=== PATIENT | female | born 2000 | race Caucasian/White ===

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

== ENCOUNTER → 2022-02-05 14:49 | Outpatient (BNVA) | payer MEDICAID, SELFPAY | PROVIDERS: PCP Nurse Practitioner; Visit Provider Nurse Practitioner | DX: M25.532 Pain in left wrist (principal) | CPT/HCPCS: 73110 ==

== ENCOUNTER 2022-02-12 17:15 | Emergency (ER) | payer MEDICAID, SELFPAY ==
[2022-02-12 17:16] VITALS: BP 109/72; PULSE 77; RESP 18; TEMP 36.5; O2SAT 98; BMI 36.2
--- NOTE | 2022-02-12 17:31 | XRR_ITS ---
PROCEDURE INFORMATION: Exam: XR Right Hand Exam date and time: 02/12/2022 5:49 PM Age: 22 years old Clinical indication: Injury or trauma; Other: Punched wall; Blunt trauma (contusions or hematomas); Hand; Right TECHNIQUE: Imaging protocol: Radiologic exam of the Right hand. Views: 3 or more views. COMPARISON: No relevant prior studies available. FINDINGS: Bones/joints: 5.2 x 1.2 cm incompletely visualize sclerosis involving the ulnar aspect of the distal radial diaphyseal metaphyseal junction with differential diagnosis including fibrous dysplasia versus ossifying non ossified fibroma. Soft tissues: See Bones/joints finding. XR/XR hand RT min 3V* [id number] IMPRESSION: No acute posttraumatic findings.
--- NOTE | 2022-02-12 17:33 | ED_ITS ---
HPI - Extremity Problem General: Chief complaint: Extremity Injury, Upper Stated complaint: right arm pain Time Seen by Provider: 02/12/22 17:31 History of Present Illness: 22-year-old female comes in today with injury to the right hand. Patient reports that she become upset and hit the table. Patient reports pain and discomfort along the fifth metacarpal little finger of the right hand. No obvious deformity is noted. Patient appears nontoxic. Patient appears in mild pain. Associated symptoms: Deny fever(s) Review of Systems Const: Denies: fever(s) Musc: Reports: extremity pain PFSH ED PFSH: Medical History Asthma BMI 34.0-34.9,adult Recurrent oral ulcers Scoliosis Surgical History No significant past surgical history Family History Other CAD (coronary artery disease) Cancer Chronic kidney disease (CKD) Diabetes Hypertension Denies family history of Anesthesia complication Stroke Social History Smoking and tobacco status: current every day smoker cigarettes Packs smoked per day: 0.5 Years cigarettes smoked: 3 Second hand smoke exposure: No Smoking risk assessment/counseling performed?: Yes Tobacco counseling given: counseling >3 minutes Alcohol intake: unknown Desire information about alcohol rehabilitation?: No Counseling given: No Desire information about substance/drug rehabilitation?: No Counseling given: No Adopted: No Caregiver/support person: No Lives independently: Yes Household members: significant other Housing: Manufactured/Mobile home Marital status: Life Partner Number of children: 0 service: No Current occupational status: employed Current occupation: [employer] Current occupational exposures/hazards: No Pets and animals: Yes History of recent travel: No Female Reproductive History: Date of last menstrual period: 01/28/22 Physical Exam Const: COMMON NORMALS: alert HENMT: COMMON NORMALS: normocephalic HEAD & SCALP: normocephalic Neck/C-Spine: COMMON NORMALS: full ROM Resp: COMMON NORMALS: normal respiratory effort Cardio: COMMON NORMALS: regular rate RATE: regular rate Extremity: RIGHT UPPER EXTREMITY: Yes hand & digits (Mild swelling to the dorsal hand with ecchymosis at the fourth knuckle) Right hand and digits: Yes inspection, Yes palpation and Yes ROM exam Neuro: SENSORIUM/ORIENTATION: Yes alert Skin: COMMON NORMALS: no rashes or lesions noted GENERAL SKIN EXAM: no rashes or lesions noted Course Vital Signs: Vital signs: Vital Signs Temperature 97.7 F 02/12/22 17:16 Pulse Rate 77 02/12/22 17:16 Respiratory Rate 18 02/12/22 17:16 Blood Pressure 109/72 02/12/22 17:16 Pulse Oximetry 98 02/12/22 17:16 Oxygen Delivery Me thod 02/12/22 17:16 MDM - Extremity (Nontraumatic) Medical Decision Making 22-year-old female comes in for injury to the right hand. On exam patient has some mild swelling and light ecchymosis to the dorsal hand. Differential diagnosis includes fracture, sprain, contusion. X-ray noted no fracture. Reviewed exam with patient with recommendations for treatment and follow-up. Patient reported understanding agreed to plan. Discharge Plan Discharge Patient Disposition: Home Clinical Impression: Contusion of hand Qualifiers: Encounter type: initial encounter Laterality: right Qualified Code(s): S60.221A - Contusion of right hand, initial encounter Condition: Stable Prescriptions: No Action bupropion HCl [Wellbutrin SR] 150 mg tablet sustained-release 12 hr 150 mg PO BID Qty: 60 2RF hydroxyzine pamoate 25 mg capsule See Rx Instructions PO .at bedtime Qty: 60 2RF Rx Instructions: 25mg-50mg orally AT BEDTIME; meloxicam 7.5 mg tablet 7.5 mg PO DAILY Qty: 30 0RF Discharge Orders: Discharge ED (Routine); Ordered 02/12/22 Ordered By: Prakash Paez Referrals: Muna Feng, MEDICAL RESEARCH TECH-C [Primary Care Provider] - Discharge Diet: Usual diet Discharge Activity: Increase activity as tolerated Patient Instructions: Musculoskeletal Pain (ED) Activity Restrictions/Additional Instructions: Use elastic bandage for comfort. Use acetaminophen or ibuprofen for pain. Use ice pack for further pain relief. Follow-up with primary care for further instruction. Return to ER for new concerns. Coding Level of Care Code ED Packaging Machine Operator for Myra Fwd Exam Detailed
[2022-02-12 18:11] VITALS: BP 112/70; PULSE 72; RESP 15; TEMP 36.7; O2SAT 97
== END 2022-02-12 18:16 | disposition home or self-care (01) ==
PROVIDERS: Emergency Provider Nurse Practitioner Family; PCP Nurse Practitioner
DX: S60.221A Contusion of right hand, initial encounter (principal); F17.210 Nicotine dependence, cigarettes, uncomplicated; W22.09XA Striking against other stationary object, initial encounter
CPT/HCPCS: 73130; 99284

== ENCOUNTER → 2022-06-04 14:27 | Outpatient (BNVA) | payer MEDICAID, SELFPAY | PROVIDERS: PCP Nurse Practitioner; Visit Provider Nurse Practitioner | DX: N91.2 Amenorrhea, unspecified (principal) | CPT/HCPCS: 81025 ==

== ENCOUNTER 2022-07-06 09:26 | Outpatient (CLI) | payer MEDICAID, SELFPAY ==
--- NOTE | 2022-07-06 10:15 | US_ITS ---
WS: [id number] EARLY OBSTETRICAL ULTRASOUND (<14 WEEKS). HISTORY: N91.2 - Amenorrhea, unspecified COMPARISON: None available. Uterus is midline and normal size. On transvaginal vaginal imaging there is a very small hypoechoic s ac with echogenic border along the endometrium. This may be a very early gestational sac with mean di ameter of 8 mm. Corresponds to a gestation of 5 weeks and 5 days. No pole or cardiac activity i dentified. No yolk sac. Both ovaries are identified. RIGHT ovary measures 3.3 x 1.8 x 3.2 cm. LEFT ovary measures 3.4 x 1.7 x 2.9 cm. No solid mass. Normal vascularity within each ovary. No adnexal mass. US/US OB <=14 wk fetus w transvag IMPRESSION: 1. No intrauterine gestation identified. 2. Possible gestational sac within the endometrium with a gestational age of 5 weeks and 5 days. There is no cardiac activity or pole or yolk sac at th is time. Recommend one week ultrasound follow-up to confirm intrauterine gestat ion. 3. No adnexal mass.
== END 2022-07-06 09:27 | disposition home or self-care (01) ==
LOC: RAD 09:26
PROVIDERS: PCP Nurse Practitioner; Visit Provider Nurse Practitioner
DX: N91.2 Amenorrhea, unspecified (principal)
CPT/HCPCS: 76801; 76817

== ENCOUNTER → 2022-07-07 08:32 | Outpatient (BNVA) | payer MEDICAID, SELFPAY | PROVIDERS: PCP Nurse Practitioner; Visit Provider Nurse Practitioner | DX: Z32.01 Encounter for pregnancy test, result positive (principal); N91.2 Amenorrhea, unspecified; R93.89 Abnormal findings on diagnostic imaging of other specified body structures | CPT/HCPCS: 84702 ==

== ENCOUNTER → 2022-07-20 13:42 | Outpatient (BNVA) | payer MEDICAID, SELFPAY | PROVIDERS: PCP Nurse Practitioner; Visit Provider Nurse Practitioner | DX: N91.2 Amenorrhea, unspecified (principal) | CPT/HCPCS: 84702 ==

== ENCOUNTER 2022-07-30 08:15 | Outpatient (CLI) | payer MEDICAID, SELFPAY ==
--- NOTE | 2022-07-30 08:45 | US_ITS ---
WS: [id number] EARLY OBSTETRICAL ULTRASOUND (<14 WEEKS). HISTORY: N91.2 - Amenorrhea, unspecified COMPARISON: 07/06/2022 Single intrauterine gestational sac is identified. Cardiac activity at 160 BPM. Bush-rump length jonna sures 2.4 cm which corresponds to a gestation of 9 weeks 1 day. Normal-appearing yolk sac and amnion demonstrated. No subchorionic hemorrhage. No free fluid. Normal size ovaries with no mass. US/US OB <=14 wk fetus w transvag IMPRESSION: 1. Single intrauterine gestation of 9 weeks 1 day with an EDC of 03/03/2023. 2. Normal cardiac activity.
== END 2022-07-30 08:16 | disposition home or self-care (01) ==
PROVIDERS: PCP Nurse Practitioner; Visit Provider Nurse Practitioner
DX: N91.2 Amenorrhea, unspecified (principal); Z3A.09 9 weeks gestation of pregnancy
CPT/HCPCS: 76801; 76817; 76830; 76857

== ENCOUNTER → 2022-08-05 09:15 | Outpatient (BNVA) | payer MEDICAID, SELFPAY | PROVIDERS: PCP Nurse Practitioner; Visit Provider Nurse Practitioner Women's Health | DX: Z34.90 Encounter for supervision of normal pregnancy, unspecified, unspecified trimester (principal) | CPT/HCPCS: 80307; 81000; 84443; 85027; 86592; 86762; 86803; 86850; 86900; 87086; 87340; 87806 ==

== ENCOUNTER 2022-08-17 20:24 | Emergency (ER) | payer MEDICAID, SELFPAY ==
[2022-08-17 20:26] VITALS: BMI 36.8
[2022-08-17 20:37] VITALS: BP 112/66; PULSE 85; RESP 16; TEMP 36.8; O2SAT 99
--- NOTE | 2022-08-17 20:39 | ED_ITS ---
HPI - Abdominal Pain General: Chief Complaint: Abdominal Pain Stated Complaint: abd cramping in Time Seen by Provider: 08/17/22 20:30 Source: patient and EMS Mode of arrival: EMS Limitations: no limitations History of Present Illness: 22-year-old female who is currently 12 weeks states she has been having some lower abdominal sharp pain mainly in the suprapubic region states she has had 7 episodes of vomiting today. She denies any fevers denies any dysuria denies any vaginal bleeding states she has been having pain throughout this but this is worse and she does not ty pically have this much vomiting. Associated Symptoms: Denies chills, dysuria and fever(s) Review of Systems Const: Denies: fever(s), chills, body aches or change in appetite Eyes: Denies: blurry vision or eye discomfort ENMT: Denies: throat pain or dental pain Card: Denies: chest pain Resp: Denies: dyspnea GI: Reports: abdominal pain : Denies: dysuria Musc: Denies: neck pain or back pain Skin/Breast: Denies: rash Neuro: Denies: headache(s) Psych: Denies: depression Luis F/Lymph: Denies: easy bruising All/Imm: Denies: urticaria PFSH ED PFSH: Medical History Asthma Obesity (BMI 30-39.9) Recurrent oral ulcers Scoliosis Surgical History No significant past surgical history Family History Other CAD (coronary artery disease) Cancer Chronic kidney disease (CKD) Diabetes Hypertension Denies family history of Anesthesia complication Stroke Social History Smoking and tobacco status: current every day smoker cigarettes Packs smoked per day: 0.5 Years cigarettes smoked: 3 Second hand smoke exposure: No Smoking risk assessment/counseling performed?: Yes Tobacco counseling given: counseling >3 minutes Alcohol intake: unknown Desire information about alcohol rehabilitation?: No Counseling given: No Desire information about substance/drug rehabilitation?: No Counseling given: No Adopted: No Caregiver/support person: No Lives independently: Yes Household members: significant other Housing: Manufactured/Mobile home Marital status: Life Partner Number of children: 0 service: No Current occupational exposures/hazards: No Pets and animals: Yes Physical Exam Const: COMMON NORMALS: no acute distress, patient oriented x3 and healthy appearing HENMT: COMMON NORMALS: normocephalic and atraumatic HEAD & SCALP: normocephalic and atraumatic Eye: COMMON NORMALS: Equal, round and reactive pupils present and EOMs intact bilaterally PUPIL: Yes Equal, round and reactive pupils present Neck/C-Spine: COMMON NORMALS: full ROM and supple Chest: COMMONS NORMALS: normal inspection of the chest and normal palpation of entire chest wall Resp: COMMON NORMALS: normal respiratory effort, No retractions, No use of accessory muscles and clear to auscultation bilaterally AUSCULTATION: clear to auscultation bilaterally Cardio: COMMON NORMALS: regular rate, regular rhythm and No murmurs present (Cardio) RATE: regular rate RHYTHM: regular rhythm GI: COMMON NORMALS: Normal to inspection, nondistended, normoactive bowel sounds present, Soft to palpation, non-tender and no masses PALPATION: Yes Soft to palpation Extremity: COMMON NORMALS: normal to inspection and full ROM Neuro: COMMON NORMALS: patient oriented x3, moves all extremities and no focal motor deficits Psych: COMMON NORMALS: mental status grossly normal, Normal thought process present and cooperative THOUGHT PROCESS: Normal thought process present Skin: COMMON NORMALS: no rashes or lesions noted and no wounds GENERAL SKIN EXAM: no rashes or lesions noted Course Vital Signs: Vital signs: Vital Signs Temperature 98.3 F 08/17/22 20:37 Pulse Rate 85 08/17/22 20:37 Respiratory Rate 16 08/17/22 20:37 Blood Pressure 112/66 08/17/22 20:37 Pulse Oximetry 99 08/17/22 20:37 Oxygen Delivery Me thod 08/17/22 20:37 MDM - Abdominal Pain Medical Decision Making Patient presents with abdominal pain along with vomiting in she is well-appearing here abdominal exam is benign I did a bedside ultrasound showed IUP consistent with dates heart rate 150s blood work urinalysis is normal she feels improved we will prescribe her Reglan for home she is to follow-up with her OB and return if worsening. Lab Data 08/17/22 20:36 08/17/22 20:36 Labs/Radiology: Laboratory Results WBC 8.8 10^3/uL (4.5-13.0) 08/17/22 20:36 RBC 4.51 10^6/uL (4.1-5.3) 08/17/22 20:36 Hgb 13.0 g/dL (11.5-15.3) 08/17/22 20:36 Hct 38.7 % (37.0-47.0) 08/17/22 20:36 MCV 85.8 fl (81-99) 08/17/22 20:36 MCH 28.8 pg (28.0-34.0) 08/17/22 20:36 MCHC 33.6 g/dL (30.0-36.0) 08/17/22 20:36 RDW 12.6 % (12.1-15.1) 08/17/22 20:36 Plt Count 250 10^3/cmm (130-400) 08/17/22 20:36 MPV 10.8 fL (7.4-10.4) H 08/17/22 20:36 Neut % (Auto) 64.9 % 08/17/22 20:36 Lymph % (Auto) 24.5 % 08/17/22 20:36 Cotton % (Auto) 8.2 % 08/17/22 20:36 Eos % (Auto) 2.0 % 08/17/22 20:36 Baso % (Auto) 0.2 % 08/17/22 20:36 Neut # (Auto) 5.73 10^3/uL (1.8-8.0) 08/17/22 20:36 Lymph # (Auto) 2.2 10^3/uL (1.5-6.5) 08/17/22 20:36 Cotton # (Auto) 0.7 10^3/uL (0.2-0.9) 08/17/22 20:36 Eos # (Auto) 0.2 10^3/uL (0.0-0.8) 08/17/22 20:36 Baso # (Auto) 0.0 10^3/uL (0.0-0.1) 08/17/22 20:36 Nucleated RBC % (auto) 0 % 08/17/22 20:36 Nucleated RBCs # 0.0 /100WBC 08/17/22 20:36 Sodium 135 mmol/L (136-145) L 08/17/22 20:36 Potassium 3.8 mmol/L (3.5-5.1) 08/17/22 20:36 Chloride 102 mmol/L (98-107) 08/17/22 20:36 Carbon Dioxide 21 mmol/L (22-29) L 08/17/22 20:36 Anion Gap 15.8 (5-19) 08/17/22 20:36 BUN 5 mg/dL (6-20) L 08/17/22 20:36 Creatinine 0.5 mg/dL (0.5-0.9) 08/17/22 20:36 GFR Calculation 157.3 mL/min (90-130) H 08/17/22 20:36 Glucose 76 mg/dL (65-115) 08/17/22 20:36 Calculated Osmolality 276 mOsm/kg (285-295) L 08/17/22 20:36 Calcium 9.8 mg/dL (8.5-10.5) 08/17/22 20:36 Total Bilirubin 0.8 mg/dL (0.15-1.2) 08/17/22 20:36 AST 16 U/L (0-32) 08/17/22 20:36 ALT 16 U/L (0-33) 08/17/22 20:36 Alkaline Phosphatase 54 U/L (35-105) 08/17/22 20:36 Total Protein 6.4 g/dL (6.6-8.7) L 08/17/22 20:36 Albumin 3.9 g/dL (3.5-5.2) 08/17/22 20:36 Globulin 2.5 g/dL (1.3-4.6) 08/17/22 20:36 Lipase 19 U/L (13-60) 08/17/22 20:36 Urine Color Yellow (Yellow) 08/17/22 20:45 Urine Appearance Clear (CLEAR) 08/17/22 20:45 Urine pH 7 (5-7) 08/17/22 20:45 Ur Specific [place] 1.010 (1.005-1.030) 08/17/22 20:45 Urine Protein Neg (Negative) 08/17/22 20:45 Urine Glucose (UA) Norm (Normal) 08/17/22 20:45 Urine Ketones 1+ (Negative) H 08/17/22 20:45 Urine Blood Neg (Negative) 08/17/22 20:45 Urine Nitrate Negative (Negative) 08/17/22 20:45 Urine Bilirubin Neg (Negative) 08/17/22 20:45 Urine Urobilinogen Norm mg/dL (Negative) 08/17/22 20:45 Ur Leukocyte Esterase Negative (Negative) 08/17/22 20:45 Discharge Plan Discharge Patient Disposition: Home Clinical Impression: Nausea and vomiting in , Abdominal pain affecting Condition: Stable Prescriptions: New Reglan 10 mg tablet 10 mg PO Q6H PRN (Reason: nausea and vomiting) Qty: 20 0RF No Action Plus 29 mg iron- 1 mg tablet 1 tab PO DAILY Qty: 30 10RF Discharge Orders: Discharge ED (Routine); Ordered 08/17/22 Ordered By: Momo Hauser Referrals: Muna Feng, WEATHERIZATION DIRECTOR-C [Primary Care Provider] - Discharge Diet: Advance as tolerated Discharge Activity: Resume usual activity Coding Level of Care Code ED Cruise Agent for Chg Blossom
[2022-08-17 20:51] LABS: Basophils % 0.2 %; Eosinophils # 0.2 10^3/uL (0.0-0.8); Hematocrit 38.7 % (37.0-47.0); Lymphocytes # 2.2 10^3/uL (1.5-6.5); Lymphocytes % 24.5 %; Mean Corpuscular HGB Conc 33.6 g/dL (30.0-36.0); Mean Corpuscular Hemoglobin 28.8 pg (28.0-34.0); Mean Corpuscular Volume 85.8 fl (81-99); Mean Platelet Volume 10.8 fL (7.4-10.4); Monocytes # 0.7 10^3/uL (0.2-0.9); Monocytes % 8.2 %; Neutrophils # 5.73 10^3/uL (1.8-8.0); Neutrophils % 64.9 %; Nucleated Red Blood Cells % 0 %; Platelet Count 250 10^3/cmm (130-400); Red Blood Count 4.51 10^6/uL (4.1-5.3); Red Cell Distribution Width 12.6 % (12.1-15.1); White Blood Count 8.8 10^3/uL (4.5-13.0)
[2022-08-17 21:07] LABS: Alanine Aminotransferase 16 U/L (0-33); Albumin Level 3.9 g/dL (3.5-5.2); Alkaline Phosphatase 54 U/L (35-105); Anion Gap 15.8 (5-19); Aspartate Amino Transferase 16 U/L (0-32); Blood Urea Nitrogen 5 mg/dL (6-20); Calcium 9.8 mg/dL (8.5-10.5); Carbon Dioxide 21 mmol/L (22-29); Chloride 102 mmol/L (98-107); Globulin 2.5 g/dL (1.3-4.6); Glomerular Filtration Rate 157.3 mL/min (90-130); Glucose 76 mg/dL (65-115); Lipase 19 U/L (13-60); Osmolality Calculated 276 mOsm/kg (285-295); Potassium 3.8 mmol/L (3.5-5.1); Sodium 135 mmol/L (136-145); Total Bilirubin 0.8 mg/dL (0.15-1.2); Total Protein 6.4 g/dL (6.6-8.7)
[2022-08-17 21:14] LABS: Add Urine Microscopic? NO; Charge for UA Resulting for Rev
[2022-08-17 21:16] LABS: Bilirubin Urine Neg (Negative); Blood Urine Neg (Negative); Glucose Urine UA Norm (Normal); Ketones Urine 1+ (Negative); Leukocyte Esterase Urine Negative (Negative); Nitrate Urine Negative (Negative); Protein Urine Neg (Negative); Urine Appearance Clear (CLEAR); Urine Color Yellow (Yellow); Urobilinogen Urine Norm (Negative); pH Urine 7 (5-7)
[2022-08-17] MEDS: sodium chloride 0.9% 1,000 ML 999 ML IV (21:32)
[2022-08-17] MEDS: diphenhydrAMINE 50 mg/mL SDV 1mL IVP (21:33)
[2022-08-17] MEDS: metoclopramide 5 mg/mL SDV 2 mL 10 MG IVP (21:33)
[2022-08-17 22:58] VITALS: BP 110/70; PULSE 87; RESP 14; O2SAT 98
== END 2022-08-17 23:40 | disposition home or self-care (01) ==
PROVIDERS: Emergency Provider Emergency Medicine; PCP Nurse Practitioner
DX: O26.891 Other specified pregnancy related conditions, first trimester (principal); R10.30 Lower abdominal pain, unspecified; O21.9 Vomiting of pregnancy, unspecified; Z3A.12 12 weeks gestation of pregnancy; O99.331 Smoking (tobacco) complicating pregnancy, first trimester; F17.210 Nicotine dependence, cigarettes, uncomplicated
CPT/HCPCS: 80053; 81003; 83690; 85025; 96361; 96374; 96375; 99284; J1200; J2765; J7030

== ENCOUNTER → 2022-08-20 11:19 | Outpatient (BNVA) | payer MEDICAID, SELFPAY | PROVIDERS: PCP Nurse Practitioner; Visit Provider Obstetrics & Gynecology | DX: Z34.90 Encounter for supervision of normal pregnancy, unspecified, unspecified trimester (principal) | CPT/HCPCS: 84315; 86850; 86900; 87086; 87491; 87591; 87661 ==

== ENCOUNTER → 2022-09-16 08:38 | Outpatient (BNVA) | payer MEDICAID, SELFPAY | PROVIDERS: PCP Nurse Practitioner; Visit Provider Nurse Practitioner Women's Health | DX: O09.899 Supervision of other high risk pregnancies, unspecified trimester (principal); Z3A.00 Weeks of gestation of pregnancy not specified | CPT/HCPCS: 80307; 81000; 82105; 87491; 87591; 87661 ==

== ENCOUNTER 2022-10-07 21:58 | Emergency (ER) | payer MEDICAID, SELFPAY ==
--- NOTE | 2022-10-07 21:59 | USR_ITS ---
PROCEDURE INFORMATION: Exam: US , Limited Exam date and time: 10/07/2022 10:53 PM Age: 22 years old Clinical indication: complicated by abdominal or pelvic pain; Left upper quadrant; Second trimester (14 weeks 0 days to 27 weeks 6 days); Gestational age or lmp: 19 w 5 d; ; Patient HX: G3- p0- a2 - l0 two prior miscarriages for unexplained reasons. ; Additional info: Abd pain LABS AND CLINICAL REPORTS: Last menstrual period start date: 05/22/2022 Gestational age (Established): 19 w 5 d Estimated due date (Established): 02/26/2023 TECHNIQUE: Imaging protocol: Real-time ultrasound of the maternal uterus with image documentation. Exam focused on the clinical indication. COMPARISON: US OB <=14 wk fetus w transvag 07/30/2022 8:40 AM FINDINGS: Gestation: Single live intrauterine gestation. heart rate: 144 bpm presentation: Breech Placenta: Posterior grade 0 placenta without previa. Amniotic fluid: Amniotic fluid volume is normal. Amniotic fluid index: ZONIA is 14.7 cm. MATERNAL: Cervix: Cervical length measures 2.4 cm with funneling of amniotic membranes into the cervix. US/US OB >= 14 weeks fetus [id number] IMPRESSION: 1. Single live intrauterine gestation. 2. Cervical length measures 2.4 cm with funneling of amniotic membranes into the cervix.
[2022-10-07 22:00] VITALS: BP 116/76; PULSE 95; RESP 18; TEMP 36.8; O2SAT 97; BMI 34.7
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
[2022-10-07 23:10] LABS: Add Urine Microscopic? NO; Charge for UA Resulting for Rev
[2022-10-07 23:15] LABS: Bilirubin Urine Neg (Negative); Blood Urine Neg (Negative); Glucose Urine UA Norm (Normal); Ketones Urine Negative (Negative); Leukocyte Esterase Urine Negative (Negative); Nitrate Urine Negative (Negative); Protein Urine Neg (Negative); Specific Gravity, Urine 1.005 (1.005-1.030); Urine Appearance Clear (CLEAR); Urine Color Colorless (Yellow); Urobilinogen Urine Neg (Negative); pH Urine 7 (5-7)
[2022-10-08 00:40] VITALS: PULSE 81; O2SAT 100
--- NOTE | 2022-10-08 07:30 | DCPLANNER ---
Addendum entered by Katiuska Kearney 10/11/22 08:06: Patient had a follow up appointment scheduled with [facility] - patient did attend appointment. Addendum entered by Katiuska Kearney 10/09/22 11:36: Patient has a follow up appointment scheduled for Wednesday, October 09, 2022 at 3:[address] Prabhakar at [facility]. Original Note: project manager/team coach had message to schedule a follow up appointment for patient with DISC RULER OPERATOR. project manager/team coach sent patients information to the front office staff at [facility]. Patients information will be printed and reviewed. Clinic will call patient with appointment information.
== END 2022-10-08 00:42 | disposition home or self-care (01) ==
PROVIDERS: Emergency Medicine; Emergency Provider Nurse Practitioner Family; PCP Nurse Practitioner
DX: O34.32 Maternal care for cervical incompetence, second trimester (principal); Z3A.19 19 weeks gestation of pregnancy
CPT/HCPCS: 76805; 81003; 99284

== ENCOUNTER 2022-10-08 23:18 | Emergency (ER) | payer MEDICAID, SELFPAY ==
[2022-10-08 23:20] VITALS: BP 123/72; PULSE 77; RESP 20; TEMP 37.2; O2SAT 100; BMI 34.7
[2022-10-08 23:26] VITALS: PULSE 80; RESP 18; O2SAT 99
[2022-10-09 00:20] LABS: Add Urine Microscopic? YES; Bilirubin Urine Neg (Negative); Blood Urine Neg (Negative); Glucose Urine UA Norm (Normal); Ketones Urine Negative (Negative); Leukocyte Esterase Urine Trace (Negative); Nitrate Urine Negative (Negative); Protein Urine Neg (Negative); Specific Gravity, Urine 1.015 (1.005-1.030); Sulfosalicylic Acid Urine Negative (Negative); Urine Appearance Clear (CLEAR); Urine Color Yellow (Yellow); Urobilinogen Urine Norm (Negative); pH Urine 8 (5-7)
--- NOTE | 2022-10-09 00:23 | ED_ITS ---
HPI - Abdominal Pain General: Chief Complaint: Abdominal Pain Stated Complaint: ABD pain Time Seen by Provider: 10/08/22 23:22 History of Present Illness: Patient is in today for abdominal pain. She is minimally willing to answer questioning. There are 2 men present with her in the exam room 1 who states he is her brother and the other 1 is the baby's father. The brother is anxious and demanding that she be discharged as soon as I walk in the room. They report that she was here last night and told to follow-up with OB. She did call OB and they are going to see her tomorrow. They report that the provider last night told her that she would end up needing a surgery just so her cervix shut for the . They state that today her pain started getting. She denies vaginal bleeding. She denies fever or chills. The brother reports that they want discharged they already have a room arranged at [facility] for [facility]. He is unsure of who they spoke with. They called an ambulance from [place] and the ambulance refused to take them to [facility] without stopping here first. Associated Symptoms: Reports nausea and vomiting; Denies chills, constipation, diarrhea, dysuria, fever(s) and hematemesis Related Data: Date of Last Menstrual Period: 05/22/22 Review of Systems Const: Denies: fever(s) or chills Card: Denies: chest pain or palpitations Resp: Denies: dyspnea, productive cough or non-productive cough GI: Reports: abdominal pain, nausea and vomiting; Denies: hematemesis, diarrhea or constipation : Denies: flank pain, difficulty voiding or dysuria [facility] ED PFSH: Medical History Asthma Obesity (BMI 30-39.9) Recurrent oral ulcers Recurrent loss Scoliosis Surgical History No significant past surgical history Family History Other CAD (coronary artery disease) Cancer Chronic kidney disease (CKD) Diabetes Hypertension Denies family history of Anesthesia complication Stroke Social History Substance/Drug Use: unknown Do you think of yourself as: Lesbian/Lombardi/Homosexual Female Reproductive History: Date of last menstrual period: 05/22/22 Physical Exam Const: OTHER: Patient is laying in bed on her side seemingly in pain. She and the males at the bedside are very anxious. She is minimally cooperative with questioning. Is very difficult to get history of present illness. They are demanding to be discharged so they can drive to [facility] Resp: COMMON NORMALS: normal respiratory effort and No use of accessory muscles Course Vital Signs: Vital signs: Vital Signs Temperature 99.0 F 10/08/22 23:20 Pulse Rate 77 10/08/22 23:20 Respiratory Rate 20 H 10/08/22 23:20 Blood Pressure 123/72 10/08/22 23:20 Pulse Oximetry 100 10/08/22 23:20 MDM - Abdominal Pain Medical Decision Making Patient is in today for right abdominal pain. She is 19 weeks gestation. She has had 2 previous pregnancies with no live births. Patient was seen here last night for abdominal pain. Ultrasound was done showing incompetent cervix. Patient was discharged home to follow-up with OB today. Patient states that they did call and speak with OB today and they have an appointment tomorrow however they have called [facility] and have arranged evaluation there right now. They do not want further evaluation or examination here they are angry because they have been in the ER for 20 minutes and nothing has been done. Patient appears to be in pain but vital signs are stable. No further exam was done as patient is not willing and wants to be discharged. I discussed the case with Dr. Hauser and he agrees to discharge the patient if that is the request. The patient brother and the other gentleman will be driving the patient to [facility] straight from here. Advised the patient that she does need immediate further evaluation and should she change her mind to return to the ER here. Lab Data Labs/Radiology: Laboratory Results Urine Color Yellow (Yellow) 10/08/22 23:58 Urine Appearance Clear (CLEAR) 10/08/22 23:58 Urine pH 8 (5-7) H 10/08/22 23:58 Ur Specific [place] 1.015 (1.005-1.030) 10/08/22 23:58 Urine Protein Neg (Negative) 10/08/22 23:58 Urine Glucose (UA) Norm (Normal) 10/08/22 23:58 Urine Ketones Negative (Negative) 10/08/22 23:58 Urine Blood Neg (Negative) 10/08/22 23:58 Urine Nitrate Negative (Negative) 10/08/22 23:58 Urine Bilirubin Neg (Negative) 10/08/22 23:58 Prot Sulfosalicylic Acd Negative (Negative) 10/08/22 23:58 Urine Urobilinogen Norm mg/dL (Negative) 10/08/22 23:58 Ur Leukocyte Esterase Trace (Negative) H 10/08/22 23:58 Urine RBC None /hpf (0-2) 10/08/22 23:58 Urine WBC 5-10 /hpf (0-5) H 10/08/22 23:58 Ur Squamous Epith Cells 15-25 /hpf (0-5) H 10/08/22 23:58 Amorphous Sediment Not Reportable 10/08/22 23:58 Urine Bacteria Trace /hpf (NONE) 10/08/22 23:58 Discharge Plan Discharge Patient Disposition: Home Clinical Impression: Abdominal pain Condition: Stable Prescriptions: No Action ondansetron HCl 4 mg tablet 4 mg PO Q6H Qty: 30 2RF promethazine 25 mg tablet 25 mg PO Q6H PRN (Reason: nausea and vomiting) Qty: 30 2RF Plus 29 mg iron- 1 mg tablet 1 tab PO DAILY Qty: 30 10RF Reglan 10 mg tablet 10 mg PO Q6H PRN (Reason: nausea and vomiting) Qty: 20 0RF Discharge Orders: Discharge ED (Routine); Ordered 10/09/22 Ordered By: Veronica Arcos Referrals: Muna Feng, VICE PRESIDENT UNDERWRITING-C [Primary Care Provider] - Discharge Diet: Usual diet Discharge Activity: Limit activity as instructed Patient Instructions: Abdominal Pain (ED) Activity Restrictions/Additional Instructions: I discharged you per your request to go to [facility] in [place] Labor and Delivery. I recommend that you are evaluated as soon as possible for your abdominal pain. Return to this ER as needed. Coding Level of Care Code ED Dependency Program Director for Myra Cerrato
[2022-10-09 00:24] LABS: Bacteria Urine TRACE /hpf; Squamous Epithelial Cell Urine 15-25 /hpf (0-5)
[2022-10-09 00:25] LABS: Add Urine Culture? No
[2022-10-09 01:02] VITALS: BP 124/72; PULSE 88; RESP 18; O2SAT 98
== END 2022-10-09 00:13 | disposition home or self-care (01) ==
PROVIDERS: Emergency Provider Nurse Practitioner Family; PCP Nurse Practitioner
DX: O26.892 Other specified pregnancy related conditions, second trimester (principal); R10.9 Unspecified abdominal pain; Z3A.19 19 weeks gestation of pregnancy
CPT/HCPCS: 81001; 81003; 99283

== ENCOUNTER → 2022-10-09 15:34 | Outpatient (BNVA) | payer MEDICAID, SELFPAY | PROVIDERS: PCP Nurse Practitioner; Visit Provider Obstetrics & Gynecology | DX: O09.899 Supervision of other high risk pregnancies, unspecified trimester (principal) | CPT/HCPCS: 81000 ==

== ENCOUNTER → 2022-10-16 09:50 | Outpatient (BNVA) | payer MEDICAID, SELFPAY | PROVIDERS: PCP Nurse Practitioner; Visit Provider Obstetrics & Gynecology | DX: O09.899 Supervision of other high risk pregnancies, unspecified trimester (principal); R82.90 Unspecified abnormal findings in urine | CPT/HCPCS: 81000; 87086 ==

== ENCOUNTER 2022-10-31 17:16 | Outpatient (CLI) | payer MEDICAID, SELFPAY ==
[2022-10-31] VITALS (67 sets, daily range): BP systolic 111–144; BP diastolic 63–90; PULSE 74–120; RESP 16; TEMP 36.6; O2SAT 91–100; BMI 34.7
--- NOTE | 2022-10-31 17:44 | USR_ITS ---
PROCEDURE INFORMATION: Exam: US , Limited Exam date and time: 10/31/2022 6:05 PM Age: 22 years old Clinical indication: complicated by abdominal or pelvic pain; Generalized abdominal pain; Third trimester (=28 weeks 0 days); Gestational age or lmp: 23wk; ; Additional info: Measure cervical length TECHNIQUE: Imaging protocol: Real-time ultrasound of the maternal uterus with image documentation. Exam focused on the clinical indication. COMPARISON: US OB >=14 wk fetus w tv [facility] 10/14/2022 9:29 AM FINDINGS: Gestation: Intrauterine gestation. heart rate: 116 bpm. heart rate is 160 bpm. position: Fetus is in vertex position. MATERNAL: Cervix: Shortened cervix measuring between 1.1 and 1.7 cm. US/US OB limited [id number] IMPRESSION: Cervical insufficiency with a length measured between 1.1 and 1.7 cm.
[2022-10-31 18:17] LABS: Bilirubin Urine Neg (Negative); Blood Urine 3+ (Negative); Glucose Urine UA Norm (Normal); Ketones Urine Negative (Negative); Leukocyte Esterase Urine 2+ (Negative); Nitrate Urine Negative (Negative); Protein Urine Neg (Negative); RBC Urine 0-4 /hpf (0-2); Specific Gravity, Urine 1.005 (1.005-1.030); Urine Appearance Clear (CLEAR); Urine Color Straw (Yellow); Urobilinogen Urine Norm (Negative); pH Urine 7 (5-7)
[2022-10-31 18:18] LABS: Add Urine Culture? Yes; Bacteria Urine 1+ /hpf; WBC Urine 15-25 /hpf (0-5)
[2022-10-31 18:56] LABS: Amphetamines Screen Urine Negative (Negative); Barbiturates Screen Urine Negative (Negative); Benzodiazepines Screen Urine Negative (Negative); Cocaine Screen Urine Negative (Negative); Opiate Screen Urine Negative (Negative); PCP Screen Urine Negative (Negative); THC Screen Urine Negative (Negative)
[2022-10-31] MEDS: magnesium sulfate premix 4 GM/100 ML PREMIX IV (19:00)
[2022-10-31] MEDS: magnesium sulfate premix 2 GM/50 ML PIGGYBACK IV (19:00)
[2022-10-31] MEDS: dextrose 5%-lactated ringers 1,000 ML 125 ML IV (19:00)
[2022-10-31] MEDS: ampicillin 2,000 MG in sodium chloride 0.9% (plus) 50 ML 100 MG IV (19:00)
--- NOTE | 2022-10-31 19:10 | USR_ITS ---
PROCEDURE INFORMATION: Exam: US , Limited Exam date and time: 10/31/2022 7:28 PM Age: 22 years old Clinical indication: Lmp or gestational age (in weeks): 23w; Labor and delivery abnormalities; Pre-term labor; Without delivery; ; Additional info: labor, need efw LABS AND CLINICAL REPORTS: Last menstrual period start date: 05/22/2022 Gestational age (Established): 23 w 1 d Estimated due date (Established): 02/26/2023 TECHNIQUE: Imaging protocol: Real-time ultrasound of the maternal uterus with image documentation. Exam focused on the clinical indication. COMPARISON: US OB limited [id number] 10/31/2022 6:05 PM FINDINGS: Gestation: Intrauterine gestation. heart rate: 131 bpm Amniotic fluid index: ZONIA is 12.8 cm. BIOMETRY: Gestational age (AUA): 21 w 4 d Estimated weight: 424 g Biparietal diameter (BPD): 5.1 cm. EGA (BPD) is 21 w 4 d Head circumference (HC): 19.7 cm. EGA (HC) is 21 w 6 d Abdominal circumference (AC): 15.9 cm. EGA (AC) is 21 w 0 d Femur length (FL): 3.7 cm. EGA (FL) is 21 w 6 d Cephalic Index (CI): 78 % HC/AC: 1.24 FL/HC: 18.9 % FL/AC: 23.4 % US/US OB limited [id number] IMPRESSION: Single live intrauterine fetus. EGA based on ultrasound is 21 weeks and 4 days. Estimated weight is 424 g which is in the 46 percentile based on ultrasound EGA.
[2022-10-31 20:07] LABS: Basophils % 0.1 %; Eosinophils % 0.3 %; Hematocrit 37.3 % (37.0-47.0); Hemoglobin 12.3 g/dL (11.5-15.3); Lymphocytes # 1.9 10^3/uL (1.5-6.5); Lymphocytes % 26.8 %; Mean Corpuscular Hemoglobin 29.9 pg (28.0-34.0); Mean Corpuscular Volume 90.8 fl (81-99); Monocytes # 0.4 10^3/uL (0.2-0.9); Monocytes % 5.3 %; Neutrophils # 4.71 10^3/uL (1.8-8.0); Neutrophils % 67.2 %; Nucleated Red Blood Cells % 0 %; Platelet Count 36 10^3/cmm (130-400); Red Blood Count 4.11 10^6/uL (4.1-5.3); Red Cell Distribution Width 13.1 % (12.1-15.1)
[2022-10-31 20:09] LABS: Slide Review Slide Review Perform
--- NOTE | 2022-10-31 21:10 | PM.OPHPUD ---
Labor & Delivery H&P Update Date of Procedure: October 31, 2022 Date H&P Performed: 10/16/22 Admission Diagnosis: IUP@ 23w1d, labor Preop diagnosis: labor Related Problem List Diagnoses (1) Supervision of other high-risk : (2) Major depressive disorder, recurrent, moderate: (3) Post-traumatic stress disorder, chronic: (4) labor:
[2022-10-31] MEDS: betamethasone susp 6 mg/mL 5 mL 12 MG IM (21:40)
--- NOTE | 2022-10-31 21:54 | P.DS_ITS ---
Discharge Providers Date of Admission: 10/31/22 Date of Discharge: October 31, 2022 Attending Provider at Discharge: Savanna Prabhakar MD Primary Care Provider: NOAH Tripp Diagnoses at Discharge Discharge Diagnosis (1) Supervision of other high-risk : Status: Acute (2) Major depressive disorder, recurrent, moderate: Status: Acute (3) Post-traumatic stress disorder, chronic: Status: Chronic (4) labor: Status: Acute Reason for Visit Reason for Visit: abdominal pain, vaginal discharge Hospital Course Hospital Course The patient presented with complaints of pain every 5 minutes and bleeding with mucous. A ua was performed and IV fluids given. An ultrasound was also performed to look at the cervical length. The tech reported that her thought the cervix was dilated. The patient passed some more bloody mucous. A nurse checked her and found her cervix to be dilated to 6 cm. Betamethasone was ordered, as well as mag sulfate, trendelenberg position and antibiotics. Her contractions stopped and no further dilation occurred. It was difficult to find a hospital to accept her due to many being full. [facility] in [place] accepted the patient for transfer. She was flown by air evac to [place] for tertiary care. Physical Exam Const: COMMON NORMALS: no acute distress, patient oriented x3, no limitations, healthy appearing, alert and well nourished GENERAL APPEARANCE: cooperative, comfortable, well kempt and well developed ORIENTATION/CONSCIOUSNESS: Yes awake, Yes oriented to person, Yes oriented to place and Yes oriented to time Resp: COMMON NORMALS: normal respiratory effort EFFORT & INSPECTION: Yes able to speak in complete sentences GI: COMMON NORMALS: Soft to palpation and non-tender PALPATION: Yes Soft to palpation : MANUAL OB EXAM: dilated 6 cm (xulging bag of water.), effaced fully and station high Extremity: COMMON NORMALS: no calf tenderness Neuro: COMMON NORMALS: patient oriented x3 SENSORIUM/ORIENTATION: Yes alert, Yes oriented to person, Yes oriented to place and Yes oriented to time Psych: COMMON NORMALS: mental status grossly normal, Normal thought process present, cooperative, normal affect and speech normal APPEARANCE: Yes well kempt SPEECH: Yes normal speech THOUGHT PROCESS: Normal thought process present Discharge Data Studies Completed and Pending Completed Studies During Hospitalization Category Date Time Status US OB limited [id number] Stat Ultrasound 10/31/22 17:44 Completed US OB limited [id number] Stat Ultrasound 10/31/22 19:10 Completed Pending at discharge Category Date Time Status Urine Culture Stat Lab 10/31/22 17:16 Received Radiology Impressions Obstetrics Ultrasound 10/31/22 19:10 IMPRESSION: Single live intrauterine fetus. EGA based on ultrasound is 21 weeks and 4 days. Estimated weight is 424 g which is in the 46 percentile based on ultrasound EGA. Laboratory Results WBC 7.0 10^3/uL (4.5-13.0) 10/31/22 19:00 RBC 4.11 10^6/uL (4.1-5.3) 10/31/22 19:00 Hgb 12.3 g/dL (11.5-15.3) 10/31/22 19:00 Hct 37.3 % (37.0-47.0) 10/31/22 19:00 MCV 90.8 fl (81-99) 10/31/22 19:00 MCH 29.9 pg (28.0-34.0) 10/31/22 19:00 MCHC 33.0 g/dL (30.0-36.0) 10/31/22 19:00 RDW 13.1 % (12.1-15.1) 10/31/22 19:00 Plt Count 36 10^3/cmm (130-400) L 10/31/22 19:00 MPV 12.0 fL (7.4-10.4) H 10/31/22 19:00 Neut % (Auto) 67.2 % 10/31/22 19:00 Lymph % (Auto) 26.8 % 10/31/22 19:00 [place] % (Auto) 5.3 % 10/31/22 19:00 Eos % (Auto) 0.3 % 10/31/22 19:00 Baso % (Auto) 0.1 % 10/31/22 19:00 Neut # (Auto) 4.71 10^3/uL (1.8-8.0) 10/31/22 19:00 Lymph # (Auto) 1.9 10^3/uL (1.5-6.5) 10/31/22 19:00 [place] # (Auto) 0.4 10^3/uL (0.2-0.9) 10/31/22 19:00 Eos # (Auto) 0.0 10^3/uL (0.0-0.8) 10/31/22 19:00 Baso # (Auto) 0.0 10^3/uL (0.0-0.1) 10/31/22 19:00 Nucleated RBC % (auto) 0 % 10/31/22 19:00 Nucleated RBCs # 0.0 /100WBC 10/31/22 19:00 Urine Color Straw (Yellow) 10/31/22 17:16 Urine Appearance Clear (CLEAR) 10/31/22 17:16 Urine pH 7 (5-7) 10/31/22 17:16 Ur Specific [place] 1.005 (1.005-1.030) 10/31/22 17:16 Urine Protein Neg (Negative) 10/31/22 17:16 Urine Glucose (UA) Norm (Normal) 10/31/22 17:16 Urine Ketones Negative (Negative) 10/31/22 17:16 Urine Blood 3+ (Negative) H 10/31/22 17:16 Urine Nitrate Negative (Negative) 10/31/22 17:16 Urine Bilirubin Neg (Negative) 10/31/22 17:16 Urine Urobilinogen Norm mg/dL (Negative) 10/31/22 17:16 Ur Leukocyte Esterase 2+ (Negative) H 10/31/22 17:16 Urine RBC 0-4 /hpf (0-2) H 10/31/22 17:16 Urine WBC 15-25 /hpf (0-5) H 10/31/22 17:16 Ur Squamous Epith Cells 5-10 /hpf (0-5) H 10/31/22 17:16 Amorphous Sediment Not Reportable 10/31/22 17:16 Urine Bacteria 1+ /hpf (NONE) H 10/31/22 17:16 Urine Opiates Screen Negative ng/mL (Negative) 10/31/22 17:16 Ur Barbiturates Screen Negative ng/mL (Negative) 10/31/22 17:16 Ur Phencyclidine Scrn Negative ng/mL (Negative) 10/31/22 17:16 Ur Amphetamines Screen Negative ng/mL (Negative) 10/31/22 17:16 U Benzodiazepines Scrn Negative ng/mL (Negative) 10/31/22 17:16 Urine Cocaine Screen Negative ng/mL (Negative) 10/31/22 17:16 U Marijuana (THC) Screen Negative ng/mL (Negative) 10/31/22 17:16 Vitals Last Vital Signs Temp 97.9 F 10/31/22 21:39 Pulse 100 10/31/22 21:49 Resp 16 10/31/22 18:39 BP 134/71 10/31/22 21:47 Pulse Ox 100 10/31/22 21:49 Discharge Plan Discharge Patient Disposition: Xfer Other Discharge Orders: Transfer Out of Facility (Order); Ordered 10/31/22 Ordered By: Savanna Prabhakar Discharge Attestations Time Spent in Discharge Care*: greater than 30 min Quality Metrics Clinical Quality Measures [ No reported AMI, CVA or VTE this stay] Coding Level of Care Code Acute Code for Chg Fwd Diagnoses Supervision of other high-risk O09.899 Major depressive disorder, recurrent, moderate F33.1 Post-traumatic stress disorder, chronic F43.12 labor O60.00
== END 2022-10-31 22:30 | disposition intermediate care facility (04) ==
LOC: OPOB 17:20 → OBGYN 17:22
PROVIDERS: Absent Provider Obstetrics & Gynecology; PCP Nurse Practitioner; Visit Provider Obstetrics & Gynecology
DX: O26.899 Other specified pregnancy related conditions, unspecified trimester (principal); R10.9 Unspecified abdominal pain; N89.8 Other specified noninflammatory disorders of vagina; Z3A.00 Weeks of gestation of pregnancy not specified
CPT/HCPCS: 36415; 51702; 76815; 80306; 81001; 85025; 87086; 96372; 99211; J0290; J0702; J3475; J7121

== ENCOUNTER 2022-12-09 09:18 | Emergency (ER) | payer MEDICAID, SELFPAY ==
[2022-12-09 09:20] VITALS: BP 127/86; PULSE 88; RESP 16; TEMP 36.8; O2SAT 97; BMI 34.0
--- NOTE | 2022-12-09 09:34 | ECG_ITS ---
[facility] Test Date: 2022-12-09 Pat Name: Dilshad Mcbride Department: Room: Gender: Female Spinner Open End: : 2000 Requested By: Julián Vargas Order Number: [id number] [place] MD: Caitie Lebron M.D. Measurements Intervals [place] Rate: 87 P: 52 IN: 138 QRS: 80 QRSD: 96 T: 32 QT: 354 QTc: 427 Interpretive Statements SINUS RHYTHM WITH SINUS ARRHYTHMIA POSSIBLE LEFT ATRIAL ENLARGEMENT [-0.1mV P-WAVE IN V1/V2] Compared to ECG 11/28/2020 11:49:29 Sinus tachycardia no longer present T-wave abnormality no longer present Electronically Signed On 12-09-2022 10:19:55 CDT by Caitie Lebron M.D. [id number]
[2022-12-09 09:55] VITALS: BP 110/87; PULSE 86; RESP 20; O2SAT 99
[2022-12-09 09:59] VITALS: BP 110/87; PULSE 95; RESP 17; O2SAT 98
--- NOTE | 2022-12-09 10:01 | XR_ITS ---
WS: [id number] Exam: XR ribs BI 3V* [id number] Date/Time of Exam: 12/09/2022 10:03 AM Reason For Exam: sternum pain and tenderness, stepped on by goats Comparison chest x-ray from 11/28/2020. No acute rib fracture or pneumothorax. The lungs are bilaterally clear and fully expanded. Normal car diomediastinal silhouette. No pleural effusions. No reactive pulmonary or pleural changes. XR/XR ribs BI 3V* [id number] IMPRESSION: 1. No acute rib fracture or pneumothorax. Negative chest.
--- NOTE | 2022-12-09 10:04 | W.ED.CHESTPA ---
HPI - Chest Pain General: Chief Complaint: Chest Pain Stated Complaint: chest pain with rib pain Time Seen by Provider: 12/09/22 09:52 History of Present Illness: Patient is a 22-year-old female who comes to the ED with chest pain. Patient is 4 weeks post 24 weeks premature delivery of baby. Patient had no complications during and she just delivered baby early. Denies any postdelivery complications. She states that approximately 4 days ago she was stepped on multiple times by her to have goats and 1 kicked her chest. Since that incident she has been having some sternum pain and soreness. Patient rates her chest pain an 8 out of 10. It worsens if she takes a deep breath or puts any pressure on sternum area of chest. Patient says her chest pain seems to get worse when she is lying down at night. She has been taking ibuprofen and Tylenol to help with pain. Here in the ED she states that her pain is more mild. Associated symptoms: Deny abdominal pain, dyspnea, fever(s), nausea, palpitations or vomiting Review of Systems Const: Denies: fever(s), chills or fatigue Eyes: Denies: change in vision or eye discomfort ENMT: Denies: throat pain, odynophagia, nasal discharge or nasal congestion Card: Reports: chest pain; Denies: palpitations, edema, swelling of feet/ankles, dyspnea on exertion or orthopnea Resp: Denies: dyspnea, productive cough or non-productive cough GI: Denies: abdominal pain, nausea, vomiting, diarrhea, constipation or hematochezia : Denies: flank pain, dysuria or hematuria Musc: Reports: other (Sternum and bilateral rib pain); Denies: neck pain, back pain or extremity swelling Skin/Breast: Denies: rash or new lesions Neuro: Denies: headache(s), numbness in extremities or weakness in extremities [facility] ED PFSH: Medical History Asthma Obesity (BMI 30-39.9) Recurrent oral ulcers Recurrent loss Scoliosis Surgical History No significant past surgical history Family History Other CAD (coronary artery disease) Cancer Chronic kidney disease (CKD) Diabetes Hypertension Denies family history of Anesthesia complication Stroke Social History Substance/Drug Use: unknown Do you think of yourself as: Lesbian/Lombardi/Homosexual Physical Exam Const: COMMON NORMALS: no acute distress, patient oriented x3 and alert HENMT: COMMON NORMALS: normocephalic HEAD & SCALP: normocephalic MOUTH: Normal oral and palatal mucosa present THROAT: posterior oropharynx normal and uvula midline Neck/C-Spine: COMMON NORMALS: supple GENERAL: Yes normal visual inspection Chest: CHEST: Yes tenderness sternum Resp: COMMON NORMALS: normal respiratory effort, No retractions, No use of accessory muscles and clear to auscultation bilaterally AUSCULTATION: clear to auscultation bilaterally Cardio: COMMON NORMALS: regular rate, regular rhythm, S1 normal heart sound present, S2 normal heart sound present, No gallops present (Cardio), No clicks present (Cardio), No murmurs present (Cardio) and Peripheral pulses 2+ throughout RATE: regular rate RHYTHM: regular rhythm HEART SOUNDS: S1 normal heart sound present and S2 normal heart sound present PERIPHERAL PULSES: Peripheral pulses 2+ throughout GI: COMMON NORMALS: Normal to inspection, nondistended, normoactive bowel sounds present, Soft to palpation, non-tender and no masses PALPATION: Yes Soft to palpation : COMMON NORMALS: Yes no CVA tenderness BLADDER/KIDNEY EXAM: Yes no CVA tenderness Back/Pelvis: COMMON NORMALS: no CVA tenderness Extremity: COMMON NORMALS: normal to inspection Neuro: COMMON NORMALS: patient oriented x3 SENSORIUM/ORIENTATION: Yes alert GAIT: Yes Normal gait present Skin: GENERAL SKIN EXAM: dry skin Course Vital Signs: Vital signs: Vital Signs Temperature 98.2 F 12/09/22 09:20 Pulse Rate 58 L 12/09/22 10:43 Respiratory Rate 16 12/09/22 10:43 Blood Pressure 116/71 12/09/22 10:43 Pulse Oximetry 97 12/09/22 10:43 Oxygen Delivery Me thod Room Air 12/09/22 10:43 MDM - Chest Pain Medical Decision Making Patient is a 22-year-old female who comes to the ED with chest pain. Patient is 4 weeks post 24 weeks premature delivery of baby. Patient had no complications during and she just delivered baby early. Denies any postdelivery complications. She states that approximately 4 days ago she was stepped on multiple times by her to have goats and 1 kicked her chest. Since that incident she has been having some sternum pain and soreness. Patient rates her chest pain an 8 out of 10. It worsens if she takes a deep breath or puts any pressure on sternum area of chest. Patient says her chest pain seems to get worse when she is lying down at night. She has been taking ibuprofen and Tylenol to help with pain. Here in the ED she states that her pain is more mild. Vitals are stable. Patient appears nontoxic and in no acute distress or pain. Patient has some sternum tenderness. Rest of exam was benign. Labs are unremarkable. Troponin negative. EKG showed no acute findings. Rib x-ray showed no acute fractures and negative chest. Patient was stable for discharge home and diagnosed with sternum pain. Told to follow-up with PCP within the next week for reevaluation and she was sent home with a prescription for a muscle relaxer and NSAID. Return to ED precautions given. Patient understood and agreed with plan. Lab Data I reviewed the patient's lab results. 12/09/22 10:05 12/09/22 10:05 Radiology Impressions Ribs X-Ray 12/09/22 10:01 IMPRESSION: 1. No acute rib fracture or pneumothorax. Negative chest. Laboratory Results WBC 8.0 10^3/uL (4.5-13.0) 12/09/22 10:05 RBC 4.52 10^6/uL (4.1-5.3) 12/09/22 10:05 Hgb 13.4 g/dL (11.5-15.3) 12/09/22 10:05 Hct 40.5 % (37.0-47.0) 12/09/22 10:05 MCV 89.6 fl (81-99) 12/09/22 10:05 MCH 29.6 pg (28.0-34.0) 12/09/22 10:05 MCHC 33.1 g/dL (30.0-36.0) 12/09/22 10:05 RDW 12.0 % (12.1-15.1) L 12/09/22 10:05 Plt Count 263 10^3/cmm (130-400) 12/09/22 10:05 MPV 10.2 fL (7.4-10.4) 12/09/22 10:05 Neut % (Auto) 57.7 % 12/09/22 10:05 Lymph % (Auto) 31.7 % 12/09/22 10:05 Douglas % (Auto) 7.3 % 12/09/22 10:05 Eos % (Auto) 2.5 % 12/09/22 10:05 Baso % (Auto) 0.5 % 12/09/22 10:05 Neut # (Auto) 4.62 10^3/uL (1.8-8.0) 12/09/22 10:05 Lymph # (Auto) 2.5 10^3/uL (1.5-6.5) 12/09/22 10:05 Douglas # (Auto) 0.6 10^3/uL (0.2-0.9) 12/09/22 10:05 Eos # (Auto) 0.2 10^3/uL (0.0-0.8) 12/09/22 10:05 Baso # (Auto) 0.0 10^3/uL (0.0-0.1) 12/09/22 10:05 Nucleated RBC % (auto) 0 % 12/09/22 10:05 Nucleated RBCs # 0.0 /100WBC 12/09/22 10:05 Sodium 139 mmol/L (136-145) 12/09/22 10:05 Potassium 4.1 mmol/L (3.5-5.1) 12/09/22 10:05 Chloride 105 mmol/L (98-107) 12/09/22 10:05 Carbon Dioxide 25 mmol/L (22-29) 12/09/22 10:05 Anion Gap 13.1 (5-19) 12/09/22 10:05 BUN 6 mg/dL (6-20) 12/09/22 10:05 Creatinine 0.7 mg/dL (0.5-0.9) 12/09/22 10:05 GFR Calculation 106.7 mL/min (90-130) 12/09/22 10:05 Glucose 83 mg/dL (65-115) 12/09/22 10:05 Calculated Osmolality 285 mOsm/kg (285-295) 12/09/22 10:05 Calcium 9.1 mg/dL (8.5-10.5) 12/09/22 10:05 Total Bilirubin 0.4 mg/dL (0.15-1.2) 12/09/22 10:05 AST 13 U/L (0-32) 12/09/22 10:05 ALT 14 U/L (0-33) 12/09/22 10:05 Alkaline Phosphatase 67 U/L (35-105) 12/09/22 10:05 Troponin T Baseline 6 ng/L (0-10) 12/09/22 10:05 Total Protein 6.7 g/dL (6.6-8.7) 12/09/22 10:05 Albumin 4.0 g/dL (3.5-5.2) 12/09/22 10:05 Globulin 2.7 g/dL (1.3-4.6) 12/09/22 10:05 EKG Data EKG 1: EKG interpretation date: 12/09/22 Interpretation: The seventhNormal sinus rhythm, no ST segment elevation or depression seen. Beats per minute. Discharge Plan Discharge Patient Disposition: Home Clinical Impression: Sternum pain Condition: Stable Prescriptions: New methocarbamol 750 mg tablet 750 mg PO Q8H PRN (Reason: Muscle spasms and pain) Qty: 15 0RF Celebrex 100 mg capsule 100 mg PO BID PRN (Reason: pain) Qty: 20 0RF No Action acetaminophen 500 mg Tablet 500 mg PO Q6H PRN (Reason: Pain) ibuprofen 200 mg Tablet 200 mg PO Q6H PRN (Reason: Pain) ferrous sulfate 27 mg iron Tablet 27 mg PO DAILY Discharge Orders: Discharge ED (Routine); Ordered 12/09/22 Ordered By: Benjamín Orlando Referrals: Muna Feng, FINANCIAL PROFESSIONAL-C [Primary Care Provider] - Discharge Diet: Regular Discharge Activity: Resume usual activity Activity Restrictions/Additional Instructions: Follow-up with medical provider as directed in the next 5-7 days for reevaluation. Take medications as prescribed. Return to the ER or your medical provider if condition worsens. Please read and understand discharge instructions. Thank you for choosing [facility] for your healthcare needs today. Please realize this is an emergency room and that we are providing you with a medical screening exam and this may not be complete and all inclusive of all the testing and or work up that you may need to determine your ailment or severity of your illness. It is very important that you follow up as instructed or that you return to the Emergency Department should you have concerns or if your condition changes or worsens in any way. Coding Level of Care Code ED Stone Processing Machine Operator for Myra Cerrato
[2022-12-09 10:19] LABS: Basophils % 0.5 %; Eosinophils # 0.2 10^3/uL (0.0-0.8); Eosinophils % 2.5 %; Hematocrit 40.5 % (37.0-47.0); Hemoglobin 13.4 g/dL (11.5-15.3); Lymphocytes # 2.5 10^3/uL (1.5-6.5); Lymphocytes % 31.7 %; Mean Corpuscular HGB Conc 33.1 g/dL (30.0-36.0); Mean Corpuscular Hemoglobin 29.6 pg (28.0-34.0); Mean Corpuscular Volume 89.6 fl (81-99); Mean Platelet Volume 10.2 fL (7.4-10.4); Monocytes # 0.6 10^3/uL (0.2-0.9); Monocytes % 7.3 %; Neutrophils # 4.62 10^3/uL (1.8-8.0); Neutrophils % 57.7 %; Nucleated Red Blood Cells % 0 %; Platelet Count 263 10^3/cmm (130-400); Red Blood Count 4.52 10^6/uL (4.1-5.3)
[2022-12-09 10:35] LABS: Alanine Aminotransferase 14 U/L (0-33); Alkaline Phosphatase 67 U/L (35-105); Anion Gap 13.1 (5-19); Aspartate Amino Transferase 13 U/L (0-32); Blood Urea Nitrogen 6 mg/dL (6-20); Calcium 9.1 mg/dL (8.5-10.5); Carbon Dioxide 25 mmol/L (22-29); Chloride 105 mmol/L (98-107); Globulin 2.7 g/dL (1.3-4.6); Glomerular Filtration Rate 106.7 mL/min (90-130); Glucose 83 mg/dL (65-115); Osmolality Calculated 285 mOsm/kg (285-295); Potassium 4.1 mmol/L (3.5-5.1); Sodium 139 mmol/L (136-145); Total Bilirubin 0.4 mg/dL (0.15-1.2); Total Protein 6.7 g/dL (6.6-8.7)
[2022-12-09 10:36] LABS: Troponin(5th) Baseline 6 ng/L (0-10)
[2022-12-09 10:43] VITALS: BP 116/71; PULSE 58; RESP 16; O2SAT 97
== END 2022-12-09 11:32 | disposition home or self-care (01) ==
PROVIDERS: Emergency Provider Physician Assistant; PCP Nurse Practitioner
DX: R07.89 Other chest pain (principal)
CPT/HCPCS: 71110; 80053; 84484; 85025; 93005; 99285

== ENCOUNTER 2023-03-05 10:13 | Emergency (ER) | payer MEDICAID, SELFPAY ==
[2023-03-05] VITALS (7 sets, daily range): BP systolic 125–163; BP diastolic 69–90; PULSE 48–86; RESP 15–18; TEMP 36.7; O2SAT 96–100
--- NOTE | 2023-03-05 10:15 | XR_ITS ---
WS: [id number] Portable AP upright chest, 03/05/2023 Clinical Data: dyspnea/cough Comparison: PA chest, 12/09/2022 Findings: No nodules, masses or effusions are seen. The heart is normal. The pulmonary vascularity is not increased. No pneumonia or pneumothorax is seen. Impression: Negative chest.
--- NOTE | 2023-03-05 10:15 | ECG_ITS ---
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 Measurements Intervals [place] Rate: 58 P: 40 WI: 134 QRS: 64 QRSD: 103 T: 32 QT: 392 QTc: 386 Interpretive Statements SINUS BRADYCARDIA WITH FREQUENT SUPRAVENTRICULAR PREMATURE COMPLEXES ABNORMAL RHYTHM ECG Compared to ECG 12/09/2022 09:34:12 Sinus rhythm no longer present Sinus arrhythmia no longer present Electronically Signed On 03-05-2023 14:50:38 CDT by Caitie Lebron M.D. [id number] f
--- NOTE | 2023-03-05 10:17 | ED_ITS ---
HPI - General Adult General: Chief complaint: Chest Pain Stated complaint: Chest Pain, N/V Time Seen by Provider: 03/05/23 10:14 Source: patient Mode of arrival: EMS History of Present Illness: 23-year-old female presents via EMS with complaint of nausea vomiting and chest pain. She has had this for couple of months worse with palpation worse with deep inspiration. She has been seen for it before. She has not been diaphoret ic or hypoxic. No fever sweats or chills no productive cough. Onset (ago): month(s) Location: chest Severity: moderate Quality: sharp Pain Consistency: constant Exacerbating factors: other (Palpation) Associated symptoms: Reports chest pain; Deny dyspnea or rash Review of Systems Const: Denies: fever(s) or chills Card: Reports: chest pain Resp: Denies: dyspnea GI: Denies: abdominal pain : Denies: dysuria, urinary frequency or urinary urgency Musc: Denies: neck pain or back pain Skin/Breast: Denies: rash PFSH ED PFSH: Medical History Asthma Obesity (BMI 30-39.9) Recurrent oral ulcers Recurrent loss Scoliosis Surgical History No significant past surgical history Family History Other CAD (coronary artery disease) Cancer Chronic kidney disease (CKD) Diabetes Hypertension Denies family history of Anesthesia complication Stroke Social History Smoking and tobacco/nicotine status: former use of tobacco/nicotine Second hand smoke exposure: No Alcohol intake: unknown Substance/Drug Use: unknown Adopted: No Caregiver/support person: No Lives independently: No Household members: significant other and family Housing: House Marital status: Single Number of children: 1 service: No Current occupational status: unemployed Current occupational exposures/hazards: No Current gender identity: Female Physical Exam Const: GENERAL APPEARANCE: cooperative and comfortable ROBERT ENTATION/CONSCIOUSNESS: Yes awake, Yes oriented to person, Yes oriented to place and Yes oriented to time HENMT: COMMON NORMALS: normocephalic, atraumatic and hearing grossly normal bilaterally HEAD & SCALP: normocephalic and atraumatic Chest: CHEST: Yes localized rib tenderness with anteroposterior compression (Right lower parasternal) Resp: COMMON NORMALS: normal respiratory effort, No retractions, No use of accessory muscles and clear to auscultation bilaterally AUSCULTATION: clear to auscultation bilaterally Cardio: COMMON NORMALS: regular rate, regular rhythm and No murmurs present (Cardio) RATE: regular rate RHYTHM: regular rhythm GI: COMMON NORMALS: Soft to palpation and No hepatosplenomegaly present AUSCULTATION: Yes normoactive bowel sounds PALPATION: Yes Soft to palpation, No Tenderness to palpation present (GI), No Guarding due to palpation present (GI) and Yes No hepatosplenomegaly present Extremity: COMMON NORMALS: normal to inspection, capillary refill normal, no clubbing, cyanosis or edema, no calf tenderness and no pedal edema Neuro: SENSORIUM/ORIENTATION: Yes oriented to person, Yes oriented to place and Yes oriented to time Skin: COMMON NORMALS: no rashes or lesions noted GENERAL SKIN EXAM: no rashes or lesions noted Course Vital Signs: Vital signs: Vital Signs Temperature 98.0 F 03/05/23 10:15 Pulse Rate 60 03/05/23 13:45 Respiratory Rate 18 03/05/23 13:45 Blood Pressure 125/82 03/05/23 13:45 Pulse Oximetry 100 03/05/23 13:45 Oxygen Delivery Me thod Room Air 03/05/23 10:15 MDM - General Adult Medical Decision Making Cardiac enzymes negative pain reproducible. Liver enzymes are slightly elevated gallbladder ultrasound unremarkable. Patient is feeling better discharge patient home with follow-up with primary care anti-inflammatories given. Medical Records I reviewed the patient's medical records. Lab Data I reviewed the patient's lab results. 03/05/23 10:25 03/05/23 10:25 Laboratory Results WBC 12.68 10^3/uL (3.29-11.43) H 03/05/23 10:25 RBC 4.70 10^6/uL (3.85-5.65) 03/05/23 10:25 Hgb 13.30 g/dL (11.27-16.99) 03/05/23 10:25 Hct 40.3 % (36-47) 03/05/23 10:25 MCV 85.7 fl (85-98) 03/05/23 10:25 MCH 28.3 pg (27-33) 03/05/23 10:25 MCHC 33.0 g/dL (30-55) 03/05/23 10:25 RDW 12.3 % (12.1-15.1) 03/05/23 10:25 Plt Count 352 10^3/cmm (157-399) 03/05/23 10:25 MPV 9.9 fL (7.4-10.4) 03/05/23 10:25 Neut % (Auto) 77.9 % 03/05/23 10:25 Lymph % (Auto) 14.4 % 03/05/23 10:25 Williams % (Auto) 6.0 % 03/05/23 10:25 Eos % (Auto) 1.0 % 03/05/23 10:25 Baso % (Auto) 0.3 % 03/05/23 10:25 Neut # (Auto) 9.88 10^3/uL (1.8-7.7) H 03/05/23 10:25 Lymph # (Auto) 1.8 10^3/uL (0.8-4.8) 03/05/23 10:25 Williams # (Auto) 0.8 10^3/uL (0.2-0.9) 03/05/23 10:25 Eos # (Auto) 0.1 10^3/uL (0.0-0.8) 03/05/23 10:25 Baso # (Auto) 0.0 10^3/uL (0.0-0.1) 03/05/23 10:25 Nucleated RBC % (auto) 0 % 03/05/23 10:25 Nucleated RBCs # 0.0 /100WBC 03/05/23 10:25 Sodium 138 mmol/L (136-145) 03/05/23 10:25 Potassium 3.9 mmol/L (3.5-5.1) 03/05/23 10:25 Chloride 103 mmol/L (98-107) 03/05/23 10:25 Carbon Dioxide 24 mmol/L (22-29) 03/05/23 10:25 Anion Gap 14.9 (5-19) 03/05/23 10:25 BUN 12 mg/dL (6-20) 03/05/23 10:25 Creatinine 0.8 mg/dL (0.5-0.9) 03/05/23 10:25 GFR Calculation 90.5 mL/min (90-130) 03/05/23 10:25 Glucose 105 mg/dL (65-115) 03/05/23 10:25 Calculated Osmolality 286 mOsm/kg (285-295) 03/05/23 10:25 Calcium 9.5 mg/dL (8.5-10.5) 03/05/23 10:25 Total Bilirubin 1.3 mg/dL (0.15-1.2) H 03/05/23 10:25 AST 63 U/L (0-32) H 03/05/23 10:25 ALT 38 U/L (0-33) H 03/05/23 10:25 Alkaline Phosphatase 86 U/L (35-105) 03/05/23 10:25 Troponin T Baseline < 6 ng/L (0-10) 03/05/23 10:25 Troponin T 120 Minute < 6.0 ng/L (0-10) 03/05/23 11:58 Delta Troponin T 0 ABS# (0-10) 03/05/23 11:58 Total Protein 7.5 g/dL (6.6-8.7) 03/05/23 10:25 Albumin 4.4 g/dL (3.5-5.2) 03/05/23 10:25 Globulin 3.1 g/dL (1.3-4.6) 03/05/23 10:25 HCG, Qual Negative (Negative) 03/05/23 10:25 Urine Color Yellow (Yellow) 03/05/23 11:40 Urine Appearance Clear (CLEAR) 03/05/23 11:40 Urine pH 8 (5-7) H 03/05/23 11:40 Ur Specific [place] 1.010 (1.005-1.030) 03/05/23 11:40 Urine Protein Neg (Negative) 03/05/23 11:40 Urine Glucose (UA) Norm (Normal) 03/05/23 11:40 Urine Ketones Negative (Negative) 03/05/23 11:40 Urine Blood Neg (Negative) 03/05/23 11:40 Urine Nitrate Negative (Negative) 03/05/23 11:40 Urine Bilirubin Neg (Negative) 03/05/23 11:40 Prot Sulfosalicylic Acd Negative (Negative) 03/05/23 11:40 Urine Urobilinogen Norm mg/dL (Negative) 03/05/23 11:40 Ur Leukocyte Esterase Negative (Negative) 03/05/23 11:40 All radiology interpretation(s) finalized by discharge Discharge Plan Discharge Patient Disposition: Home Clinical Impression: Atypical chest pain, Elevated liver enzymes Condition: Stable Prescriptions: No Action Ortho-Novum (28) 0.5/0.75/1 mg- 35 mcg tablet 1 tab PO QAM Discharge Orders: Discharge ED (Routine); Ordered 03/05/23 Ordered By: Julián Mccoy Referrals: Muna Feng, PRABHUC [Primary Care Provider] - Discharge Diet: Low Fat Discharge Activity: Increase activity as tolerated Patient Instructions: Opioid Safety, Pain Management Activity Restrictions/Additional Instructions: You are seen today for chest pain. Cardiac enzymes and EKG were negative. Your liver enzymes were elevated. As was your bilirubin. Gallbladder ultrasound was negative. We will set you up for an outpatient HIDA scan. Avoid fatty foods greasy foods and red meats and dairy products. Follow-up with your primary care doctor. Coding Level of Care Code ED Traffic Warehouse Supervisor for Myra Cerrato
[2023-03-05 10:35] LABS: Basophils % 0.3 %; Eosinophils # 0.1 10^3/uL (0.0-0.8); Hematocrit 40.3 % (36-47); Lymphocytes # 1.8 10^3/uL (0.8-4.8); Lymphocytes % 14.4 %; Mean Corpuscular Hemoglobin 28.3 pg (27-33); Mean Corpuscular Volume 85.7 fl (85-98); Mean Platelet Volume 9.9 fL (7.4-10.4); Monocytes # 0.8 10^3/uL (0.2-0.9); Neutrophils # 9.88 10^3/uL (1.8-7.7); Neutrophils % 77.9 %; Nucleated Red Blood Cells % 0 %; Platelet Count 352 10^3/cmm (157-399); Red Cell Distribution Width 12.3 % (12.1-15.1); White Blood Count 12.68 10^3/uL (3.29-11.43)
[2023-03-05 10:53] LABS: Troponin(5th) Baseline < 6 ng/L (0-10)
[2023-03-05 10:55] LABS: Alanine Aminotransferase 38 U/L (0-33); Albumin Level 4.4 g/dL (3.5-5.2); Alkaline Phosphatase 86 U/L (35-105); Anion Gap 14.9 (5-19); Aspartate Amino Transferase 63 U/L (0-32); Blood Urea Nitrogen 12 mg/dL (6-20); Calcium 9.5 mg/dL (8.5-10.5); Carbon Dioxide 24 mmol/L (22-29); Chloride 103 mmol/L (98-107); Globulin 3.1 g/dL (1.3-4.6); Glomerular Filtration Rate 90.5 mL/min (90-130); Glucose 105 mg/dL (65-115); Osmolality Calculated 286 mOsm/kg (285-295); Potassium 3.9 mmol/L (3.5-5.1); Sodium 138 mmol/L (136-145); Total Bilirubin 1.3 mg/dL (0.15-1.2); Total Protein 7.5 g/dL (6.6-8.7)
--- NOTE | 2023-03-05 10:55 | PC.NURSE ---
PT PLACED ON CONTINUOS NIBP ,SPO2, AND CM
[2023-03-05 11:08] LABS: HCG, Serum Qual Negative (Negative)
[2023-03-05] MEDS: ketorolac 30 mg/mL INJ IVP (11:11)
[2023-03-05] MEDS: sodium chloride 0.9% 1,000 ML 999 ML IV ×2 (11:11→12:22)
[2023-03-05] MEDS: ondansetron 2 mg/ML SDV 2 mL 4 MG IVP (11:11)
[2023-03-05] MEDS: morphine 4 mg/mL SDV 1 mL 2 MG IVP (11:12)
[2023-03-05 11:55] LABS: Add Urine Microscopic? NO; Charge for UA Resulting for Rev
--- NOTE | 2023-03-05 11:56 | US_ITS ---
WS: [id number] RIGHT UPPER QUADRANT ULTRASOUND HISTORY: elevated transaminaes/tbili COMPARISON: None available. Liver: 15.4 cm in length. Normal size liver and echogenicity. No bile duct dilatation or mass. Portal Vein: Normal hepatopetal flow with monophasic waveform. Gallbladder: Normally distended gallbladder with no stones or wall thickening. CBD: 0.4 cm Pancreas: Normal size and echogenicity. Right kidney: 9.7 cm in length. Normal size and echogenicity. No hydronephrosis or mass. Aorta and IVC: Unremarkable abdominal aorta and IVC. No ascites. IMPRESSION: Normal RIGHT upper quadrant ultrasound.
[2023-03-05 12:05] LABS: Bilirubin Urine Neg (Negative); Blood Urine Neg (Negative); Glucose Urine UA Norm (Normal); Ketones Urine Negative (Negative); Leukocyte Esterase Urine Negative (Negative); Nitrate Urine Negative (Negative); Protein Urine Neg (Negative); Sulfosalicylic Acid Urine Negative (Negative); Urine Appearance Clear (CLEAR); Urine Color Yellow (Yellow); Urobilinogen Urine Norm (Negative); pH Urine 8 (5-7)
--- NOTE | 2023-03-05 12:22 | ECG_ITS ---
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 Measurements Intervals [place] Rate: 46 P: 50 VA: 136 QRS: 74 QRSD: 105 T: 35 QT: 432 QTc: 378 Interpretive Statements SINUS BRADYCARDIA Compared to ECG 12/09/2022 09:34:12 Sinus rhythm no longer present Sinus arrhythmia no longer present Electronically Signed On 03-05-2023 12:35:25 CDT by Caitie Lebron M.D. [id number]
[2023-03-05 12:29] LABS: Troponin 5 2HR < 6.0 ng/L (0-10); Troponin 5 2HR Delta 0 ABS# (0-10)
--- NOTE | 2023-03-08 11:45 | PC.SOCIAL ---
PCP Appt Message sent to PCP office requesting a follow up appt. Clinic to contact patient with appt date/time.
--- NOTE | 2023-03-09 08:16 | DCPLANNER ---
Sent Message and Task, Scanned and faxed, [phone]
== END 2023-03-05 13:47 | disposition home or self-care (01) ==
PROVIDERS: Emergency Provider Family Medicine; PCP Nurse Practitioner
DX: R07.89 Other chest pain (principal); R74.8 Abnormal levels of other serum enzymes; Z87.891 Personal history of nicotine dependence
CPT/HCPCS: 36415; 71045; 76705; 80053; 81003; 84484; 84703; 85025; 93005; 96361; 96374; 96375; 99285; J1885; J2270; J2405; J7030

== ENCOUNTER → 2023-04-27 10:59 | Outpatient (BNVA) | payer MEDICAID, SELFPAY | PROVIDERS: PCP Nurse Practitioner; Visit Provider Nurse Practitioner | DX: Z30.011 Encounter for initial prescription of contraceptive pills (principal); Z12.4 Encounter for screening for malignant neoplasm of cervix | CPT/HCPCS: 87624; 88175 ==

== ENCOUNTER 2024-05-25 21:37 | Emergency (ER) | payer MEDICAID, SELFPAY ==
[2024-05-25 21:47] VITALS: BP 105/77; PULSE 97; RESP 18; TEMP 36.7; O2SAT 97; BMI 34.1
[2024-05-25 23:53] LABS: Basophils % 0.5 %; Eosinophils # 0.2 10^3/uL (0.0-0.8); Eosinophils % 2.2 %; Hematocrit 39.8 % (36-47); Lymphocytes # 3.2 10^3/uL (0.8-4.8); Lymphocytes % 36.6 %; Mean Corpuscular HGB Conc 32.9 g/dL (30-55); Mean Corpuscular Hemoglobin 29.4 pg (27-33); Mean Corpuscular Volume 89.2 fl (85-98); Mean Platelet Volume 9.7 fL (7.4-10.4); Monocytes # 0.7 10^3/uL (0.2-0.9); Monocytes % 8.5 %; Neutrophils # 4.56 10^3/uL (1.8-7.7); Neutrophils % 52.1 %; Nucleated Red Blood Cells % 0 %; Platelet Count 303 10^3/cmm (157-399); Red Blood Count 4.46 10^6/uL (3.85-5.65); Red Cell Distribution Width 12.4 % (12.1-15.1); White Blood Count 8.74 10^3/uL (3.29-11.43)
[2024-05-26 00:08] LABS: Anion Gap 15.8 (5-19); Blood Urea Nitrogen 9 mg/dL (6-20); Calcium 9.3 mg/dL (8.5-10.5); Carbon Dioxide 25 mmol/L (22-29); Chloride 102 mmol/L (98-107); Glucose 116 mg/dL (65-115); Osmolality Calculated 288 mOsm/kg (285-295); Potassium 3.8 mmol/L (3.5-5.1); Sodium 139 mmol/L (136-145)
== END 2024-05-26 00:48 | disposition left against medical advice (07) ==
LOC: ER 21:46
PROVIDERS: General Practice; Emergency Provider Family Medicine; PCP Nurse Practitioner
DX: Z53.21 Procedure and treatment not carried out due to patient leaving prior to being seen by health care provider (principal)
CPT/HCPCS: 36415; 80048; 85025; 99283

== ENCOUNTER → 2024-05-31 15:15 | Outpatient (BNVA) | payer MEDICAID, SELFPAY | PROVIDERS: PCP Nurse Practitioner; Visit Provider Nurse Practitioner | DX: N91.2 Amenorrhea, unspecified | CPT/HCPCS: 81025 ==

== ENCOUNTER 2024-06-03 17:06 | Emergency (ER) | payer MEDICAID, SELFPAY ==
[2024-06-03 17:10] VITALS: BP 108/65; PULSE 73; RESP 16; TEMP 36.7; O2SAT 99; BMI 34.2
--- NOTE | 2024-06-03 17:42 | USR_ITS ---
PROCEDURE INFORMATION: Exam: US First Trimester, Transabdominal and US , Transvaginal Exam date and time: 06/03/2024 6:15 PM Age: 24 years old Clinical indication: complicated by abdominal or pelvic pain; Lower; First trimester (<14 weeks 0 days); Gestational age or lmp: 6w1d; ; Additional info: Abd pain in preg LABS AND CLINICAL REPORTS: Gestational age (Established): 7 w 2 d Estimated due date (Established): 01/18/2025 TECHNIQUE: Imaging protocol: Real-time transabdominal obstetrical ultrasound of the maternal pelvis and a first trimester , less than 14 weeks 0 days, with image documentation. Transvaginal imaging was used for better evaluation of the fetus, adnexa, and/or cervix. COMPARISON: US OB limited [id number] 10/31/2022 7:28 PM FINDINGS: GESTATION: Gestation: Yolk sac measures 2.1 mm. An intrauterine gestational sac, yolk sac and pole identified. Embryo/ cardiac activity (BPM): 112 bpm. The estimated heart rate is 112 bpm. Extra-embryonic membranes/Placenta: Unremarkable. No subchorionic bleed. Amniotic/Chorionic fluid: Amniotic and extra-amniotic fluid are normal for gestational age. BIOMETRY: Gestational age (AUA): See [place] rump length (CRL) finding. [place] rump length (CRL): The mean crown-rump length measures 0.48 cm corresponding to an estimated ultrasound age of 6 weeks, 1 day. MATERNAL: Uterus: Unremarkable. Cervix: Cervical length measures 3.2 cm. The cervix is closed measuring 3.2 cm in length with a trace amount of fluid in the endocervical canal. Right ovary/adnexa: The right ovary measures 2.1 x 2.5 x 2.9 cm. Color and spectral Doppler interrogation of the right ovary demonstrates normal arterial and venous flow. Left ovary/adnexa: The left ovary measures 2.5 x 2.8 x 2.1 cm. There is a unilocular left ovarian cyst measuring 3.0 x 2.7 x 2.7 cm. Color Doppler interrogation of this cyst is unremarkable. Intraperitoneal space: A small amount of free fluid present within the pelvis. Vasculature: Color and spectral Doppler interrogation demonstrates normal arterial and venous flow of both ovaries. Other findings: No adnexal masses. US/US OB <=14 wk fetus w transvag IMPRESSION: 1. Single viable intrauterine as detailed. 2. Negative exam for ovarian torsion. 3. Unilocular left ovarian cyst.
--- NOTE | 2024-06-03 17:44 | W.ED.ABDPA2 ---
HPI - Abdominal Pain General: Chief Complaint: Abdominal Pain Stated Complaint: lower abdominal pain Time Seen by Provider: 06/03/24 17:32 Source: patient Mode of arrival: ambulatory Limitations: no limitations History of Present Illness: 24-year-old female states she is currently 8 weeks has been having abdominal cramping over the last week. She states has been having nausea and vomiting as well. States the pain is mid abdomen she denies any fevers denies any dysuria denies any vaginal bleeding. Associated Symptoms: Reports nausea and vomiting; Denies chills, diarrhea, dysuria and fever(s) Related Data Previous Rx's Medication Instructions Recorded vitamins with calcium 1 tab PO DAILY #30 tabs 05/31/24 no.72-iron 29 mg-folic acid 1 mg tablet ( Plus) metoclopramide HCl 10 mg tablet 10 mg PO Q6H PRN nausea and 06/03/24 (Reglan) vomiting #20 tabs Allergies Allergy/AdvReac Type Severity Reaction Status Date / Time Bleach (Sodium Hypochlorite) Allergy Severe ALGY-Redness Verified 05/31/24 14:38 of Skin Review of Systems Const: Denies: fever(s), chills, body aches or change in appetite ENMT: Denies: throat pain or dental pain Card: Denies: chest pain Resp: Denies: dyspnea GI: Reports: abdominal pain, nausea and vomiting; Denies: diarrhea : Denies: dysuria Musc: Denies: neck pain or back pain Skin/Breast: Denies: rash Neuro: Denies: headache(s) [facility] ED PFSH: Medical History Recurrent loss Obesity (BMI 30-39.9) Recurrent oral ulcers Asthma Scoliosis Surgical History No significant past surgical history Family History Other CAD (coronary artery disease) Cancer Chronic kidney disease (CKD) Diabetes Hypertension Denies family history of Anesthesia complication Stroke Social History Smoking and tobacco/nicotine status: former use of tobacco/nicotine Second hand smoke exposure: No Alcohol intake: unknown Substance/Drug Use: unknown Adopted: No Caregiver/support person: No Lives independently: No Household members: significant other and family Housing: House Marital status: Single Number of children: 1 service: No Current occupational status: unemployed Current occupational exposures/hazards: No Current gender identity: Female Female Reproductive History: Para: 1 Physical Exam Const: COMMON NORMALS: no acute distress, patient oriented x3 and healthy appearing HENMT: COMMON NORMALS: normocephalic and atraumatic HEAD & SCALP: normocephalic and atraumatic Eye: COMMON NORMALS: conjunctivae normal CONJUNCTIVA: Yes conjunctivae normal Neck/C-Spine: COMMON NORMALS: full ROM and supple Chest: COMMONS NORMALS: normal inspection of the chest Resp: COMMON NORMALS: normal respiratory effort, No retractions, No use of accessory muscles and clear to auscultation bilaterally AUSCULTATION: clear to auscultation bilaterally Cardio: COMMON NORMALS: regular rate, regular rhythm and No murmurs present (Cardio) RATE: regular rate RHYTHM: regular rhythm GI: COMMON NORMALS: Normal to inspection, nondistended, normoactive bowel sounds present, Soft to palpation, non-tender and no masses PALPATION: Yes Soft to palpation Extremity: COMMON NORMALS: normal to inspection and full ROM Neuro: COMMON NORMALS: patient oriented x3, moves all extremities and no focal motor deficits Psych: COMMON NORMALS: mental status grossly normal, Normal thought process present and cooperative THOUGHT PROCESS: Normal thought process present Skin: COMMON NORMALS: no rashes or lesions noted and no wounds GENERAL SKIN EXAM: no rashes or lesions noted Course Vital Signs: Vital signs: Vital Signs Temperature 98.1 F 06/03/24 17:10 Pulse Rate 110 H 06/03/24 18:30 Respiratory Rate 16 06/03/24 18:30 Blood Pressure 114/58 06/03/24 18:30 Pulse Oximetry 98 06/03/24 18:30 Oxygen Delivery Me thod Room Air 06/03/24 18:30 MDM - Abdominal Pain Medical Decision Making Patient presents with abdominal pain in she feels much improved here abdominal exam here at discharge benign no signs of appendicitis she is stable for discharge she is follow-up with OB return if worsening she understands agrees to plan. Medical Records I reviewed the patient's medical records. Lab Data I reviewed the patient's lab results. 06/03/24 18:05 06/03/24 18:05 Labs/Radiology: Radiology Impressions Obstetrics Ultrasound 06/03/24 17:42 IMPRESSION: 1. Single viable intrauterine as detailed. 2. Negative exam for ovarian torsion. 3. Unilocular left ovarian cyst. Laboratory Results WBC 7.67 10^3/uL (3.29-11.43) 06/03/24 18:05 RBC 4.61 10^6/uL (3.85-5.65) 06/03/24 18:05 Hgb 13.50 g/dL (11.27-16.99) 06/03/24 18:05 Hct 40.9 % (36-47) 06/03/24 18:05 MCV 88.7 fl (85-98) 06/03/24 18:05 MCH 29.3 pg (27-33) 06/03/24 18:05 MCHC 33.0 g/dL (30-55) 06/03/24 18:05 RDW 12.4 % (12.1-15.1) 06/03/24 18:05 Plt Count 267 10^3/cmm (157-399) 06/03/24 18:05 MPV 10.0 fL (7.4-10.4) 06/03/24 18:05 Neut % (Auto) 58.9 % 06/03/24 18:05 Lymph % (Auto) 30.2 % 06/03/24 18:05 [place] % (Auto) 8.2 % 06/03/24 18:05 Eos % (Auto) 2.0 % 06/03/24 18:05 Baso % (Auto) 0.4 % 06/03/24 18:05 Neut # (Auto) 4.52 10^3/uL (1.8-7.7) 06/03/24 18:05 Lymph # (Auto) 2.3 10^3/uL (0.8-4.8) 06/03/24 18:05 [place] # (Auto) 0.6 10^3/uL (0.2-0.9) 06/03/24 18:05 Eos # (Auto) 0.2 10^3/uL (0.0-0.8) 06/03/24 18:05 Baso # (Auto) 0.0 10^3/uL (0.0-0.1) 06/03/24 18:05 Nucleated RBC % (auto) 0 % 06/03/24 18:05 Nucleated RBCs # 0.0 /100WBC 06/03/24 18:05 Sodium 134 mmol/L (136-145) L 06/03/24 18:05 Potassium 3.8 mmol/L (3.5-5.1) 06/03/24 18:05 Chloride 100 mmol/L (98-107) 06/03/24 18:05 Carbon Dioxide 24 mmol/L (22-29) 06/03/24 18:05 Anion Gap 13.8 (5-19) 06/03/24 18:05 BUN 5 mg/dL (6-20) L 06/03/24 18:05 Creatinine 0.4 mg/dL (0.5-0.9) L 06/03/24 18:05 GFR Calculation 199.6 mL/min (90-130) H 06/03/24 18:05 Glucose 82 mg/dL (65-115) 06/03/24 18:05 Calculated Osmolality 274 mOsm/kg (285-295) L 06/03/24 18:05 Calcium 9.4 mg/dL (8.5-10.5) 06/03/24 18:05 Total Bilirubin 0.7 mg/dL (0.15-1.2) 06/03/24 18:05 AST 21 U/L (0-32) 06/03/24 18:05 ALT 19 U/L (0-33) 06/03/24 18:05 Alkaline Phosphatase 52 U/L (35-105) 06/03/24 18:05 Total Protein 7.2 g/dL (6.6-8.7) 06/03/24 18:05 Albumin 4.3 g/dL (3.5-5.2) 06/03/24 18:05 Globulin 2.9 g/dL (1.3-4.6) 06/03/24 18:05 Lipase 22 U/L (13-60) 06/03/24 18:05 Urine Color Yellow (Yellow) 06/03/24 19:13 Urine Appearance Clear (CLEAR) 06/03/24 19:13 Urine pH 8.0 (5-7) A 06/03/24 19:13 Ur Specific [place] 1.014 (1.005-1.030) 06/03/24 19:13 Urine Protein Negative (Negative) 06/03/24 19:13 Urine Glucose (UA) Negative (Normal) 06/03/24 19:13 Urine Ketones Negative (Negative) 06/03/24 19:13 Urine Blood Negative (Negative) 06/03/24 19:13 Urine Nitrate Negative (Negative) 06/03/24 19:13 Urine Bilirubin Negative (Negative) 06/03/24 19:13 Urine Urobilinogen 1.0 mg/dL (Negative) 06/03/24 19:13 Ur Leukocyte Esterase Negative (Negative) 06/03/24 19:13 Urine RBC 0-2 /hpf (0-2) 06/03/24 19:13 Urine WBC 0-5 /hpf (0-5) 06/03/24 19:13 Ur Squamous Epith Cells 0-5 /hpf (0-5) 06/03/24 19:13 Amorphous Sediment Not Reportable 06/03/24 19:13 Urine Bacteria None seen /hpf (NONE) 06/03/24 19:13 Hyaline Casts 0-4 /lpf H 06/03/24 19:13 All radiology interpretation(s) finalized by discharge Discharge Plan Discharge Patient Disposition: Home Clinical Impression: Abdominal pain affecting Condition: Stable Prescriptions: New metoclopramide HCl [Reglan] 10 mg tablet 10 mg PO Q6H PRN (Reason: nausea and vomiting) Qty: 20 0RF No Action Plus 29 mg iron- 1 mg tablet 1 tab PO DAILY Qty: 30 5RF Discharge Orders: Discharge ED (Routine); Ordered 06/03/24 Ordered By: Momo Hauser Referrals: Muna Feng, COAL PULVERIZER OPERATOR-C [Primary Care Provider] - Discharge Diet: Advance as tolerated Discharge Activity: Resume usual activity Patient Instructions: Abdominal Pain in (ED) Coding Level of Care Code ED Program Clinician for Myra Cerrato
[2024-06-03 18:14] LABS: Basophils % 0.4 %; Eosinophils # 0.2 10^3/uL (0.0-0.8); Hematocrit 40.9 % (36-47); Lymphocytes # 2.3 10^3/uL (0.8-4.8); Lymphocytes % 30.2 %; Mean Corpuscular Hemoglobin 29.3 pg (27-33); Mean Corpuscular Volume 88.7 fl (85-98); Monocytes # 0.6 10^3/uL (0.2-0.9); Monocytes % 8.2 %; Neutrophils # 4.52 10^3/uL (1.8-7.7); Neutrophils % 58.9 %; Nucleated Red Blood Cells % 0 %; Platelet Count 267 10^3/cmm (157-399); Red Blood Count 4.61 10^6/uL (3.85-5.65); Red Cell Distribution Width 12.4 % (12.1-15.1); White Blood Count 7.67 10^3/uL (3.29-11.43)
[2024-06-03] MEDS: diphenhydrAMINE 50 mg/mL SDV 1mL IVP (18:16)
[2024-06-03] MEDS: metoclopramide 5 mg/mL SDV 2 mL 10 MG IVP (18:16)
[2024-06-03 18:24] VITALS: BP 112/60; PULSE 92; RESP 16; O2SAT 100
[2024-06-03 18:30] VITALS: BP 114/58; PULSE 110; RESP 16; O2SAT 98
[2024-06-03 18:31] LABS: Alanine Aminotransferase 19 U/L (0-33); Albumin Level 4.3 g/dL (3.5-5.2); Alkaline Phosphatase 52 U/L (35-105); Aspartate Amino Transferase 21 U/L (0-32); Blood Urea Nitrogen 5 mg/dL (6-20); Calcium 9.4 mg/dL (8.5-10.5); Carbon Dioxide 24 mmol/L (22-29); Chloride 100 mmol/L (98-107); Creatinine Clr Calc Pharmacy 214.2519; Globulin 2.9 g/dL (1.3-4.6); Glomerular Filtration Rate 199.6 mL/min (90-130); Glucose 82 mg/dL (65-115); Lipase 22 U/L (13-60); Osmolality Calculated 274 mOsm/kg (285-295); Sodium 134 mmol/L (136-145); Total Bilirubin 0.7 mg/dL (0.15-1.2); Total Protein 7.2 g/dL (6.6-8.7)
[2024-06-03 18:33] LABS: Anion Gap 13.8 (5-19); Potassium 3.8 mmol/L (3.5-5.1)
[2024-06-03 19:21] LABS: Bilirubin Urine Negative (Negative); Blood Urine Negative (Negative); Glucose Urine UA Negative (Normal); Ketones Urine Negative (Negative); Leukocyte Esterase Urine Negative (Negative); Nitrate Urine Negative (Negative); Protein Urine Negative (Negative); Specific Gravity, Urine 1.014 (1.005-1.030); Urine Appearance Clear (CLEAR); Urine Color Yellow (Yellow)
[2024-06-03 19:26] LABS: Add Urine Microscopic? YES; Bacteria Urine None Seen /hpf; Hyaline Casts Urine 0-4 /lpf; RBC Urine 0-2 /hpf (0-2); Squamous Epithelial Cell Urine 0-5 /hpf (0-5); WBC Urine 0-5 /hpf (0-5)
[2024-06-03 20:19] VITALS: BP 115/68; PULSE 94; RESP 16; O2SAT 99
== END 2024-06-03 20:20 | disposition home or self-care (01) ==
PROVIDERS: Emergency Provider Emergency Medicine; PCP Nurse Practitioner
DX: O26.891 Other specified pregnancy related conditions, first trimester (principal); Z3A.08 8 weeks gestation of pregnancy; Z87.891 Personal history of nicotine dependence
CPT/HCPCS: 76801; 76817; 80053; 81001; 83690; 85025; 96374; 96375; 99284; J1200; J2765

== ENCOUNTER 2024-08-26 23:22 | Emergency (ER) | payer MEDICAID, SELFPAY ==
[2024-08-26 23:35] VITALS: BP 122/74; PULSE 78; RESP 16; TEMP 36.5; O2SAT 100; BMI 34.0
[2024-08-26 23:52] VITALS: BP 123/69; PULSE 98; RESP 18; O2SAT 97
--- NOTE | 2024-08-27 00:12 | ED_ITS ---
HPI - Female Genitourinary General: Chief complaint: Urogenital-Female Stated complaint: post OB surg. severe pain Time Seen by Provider: 08/26/24 23:30 History of Present Illness: 24-year-old female who had a cervical ce rclage wire placed 4 days ago. She presents with intermittent pelvic pain. She has had some minimal discharge. No bleeding. She was told the symptoms were likely normal by her specialist, but when pain worsened tonight, she was told to come to the hospital. No fever. No vomiting. Related Data Previous Rx's ?Medication ?Instructions ?Recorded vitamins with calcium 1 tab PO DAILY #30 tabs 05/31/24 no.72-iron 29 mg-folic acid 1 mg tablet ( Plus) metoclopramide HCl 10 mg tablet 10 mg PO Q6H PRN nause a and 06/03/24 (Reglan) vomiting #20 tabs cefdinir 300 mg capsule 300 mg PO BID #14 caps 08/27 hydrocodone 5 mg-acetaminophen 325 1 tab PO Q8H PRN pa in #7 tabs 08/27/24 mg tablet Allergies Allergy/AdvReac Type Severity Reaction Status Date / Time Bleach (Sodium Hypochlorite) Allergy Severe ALGY-Redness Verified 08/26/24 23:36 of Skin [facility] ED PFSH: Medical History Recurrent loss Obesity (BMI 30-39.9) Recurrent oral ulcers Asthma Scoliosis Surgical History No significant past surgical history Family History Other CAD (coronary artery disease) Cancer Chronic kidney disease (CKD) Diabetes Hypertension Denies family history of Anesthesia complication Stroke Social History Smoking and tobacco/nicotine status: former use of tobacco/nicotine Second hand smoke exposure: No Alcohol intake: unknown Substance/Drug Use: unknown Adopted: No Caregiver/support person: No Lives independently: No Household members: significant other and family Housing: House Marital status: Single Number of children: 1 service: No Current occupational status: unemployed Current occupational exposures/hazards: No Current gender identity: Female Female Reproductive History: Para: 1 Physical Exam Const: COMMON NORMALS: no acute distress GENERAL APPEARANCE: cooperative; not ill appearing and not frail appearing HENMT: COMMON NORMALS: normocephalic, atraumatic and Normal external nose present HEAD & SCALP: normocephalic and atraumatic FACE & SINUS: normal facial exam and face symmetric NOSE: Normal external nose present Eye: COMMON NORMALS: Equal, round and reactive pupils present and EOMs intact bilaterally PUPIL: Yes Equal, round and reactive pupils present Neck/C-Spine: GENERAL: Yes trachea midline Chest: CHEST: Yes Symmetrical chest wall rise Resp: COMMON NORMALS: normal respiratory effort, No retractions, No use of accessory muscles and clear to auscultation bilaterally AUSCULTATION: clear to auscultation bilaterally Cardio: COMMON NORMALS: regular rate and regular rhythm RATE: regular rate RHYTHM: regular rhythm GI: COMMON NORMALS: Normal to inspection, nondistended, normoactive bowel sounds present : SPECULUM EXAM - VAGINA: No erythematous SPECULUM EXAM - CERVIX: Yes Other cervical findings present (Cerclage present. No cervical discharge. Minimal bleeding.) Extremity: COMMON NORMALS: no pedal edema Neuro: RIANNA COMA SCALE: document GCS findings Rianna coma scale eye opening: Spontaneous [place] coma scale verbal response: Orientated [place] coma scale motor response: [place]bey commands Rianna coma scale total score: 15 SENSORY EXAM: Yes extremities (intact) Psych: COMMON NORMALS: speech normal SPEECH: Yes normal speech Skin: COMMON NORMALS: no rashes or lesions noted GENERAL SKIN EXAM: no rashes or lesions noted Course Vital Signs: Vital signs: Vital Signs Temperature 97.7 F 08/26/24 23:35 Pulse Rate 98 08/26/24 23:52 Respiratory Rate 18 08/26/24 23:52 Blood Pressure 123/69 08/26/24 23:52 Pulse Oximetry 97 08/26/24 23:52 Oxygen Delivery Me thod Room Air 08/26/24 23:52 MDM - Female Medical Decision Making Patient has a mild amount of discharge on pelvic examination. It is sent for GC and chlamydia. She has a urinary tract infection on urinalysis. This will be treated with antibiotics. Bedside ultrasound reveals positive movement, heart rate in the 140s, appropriate fluid. Close outpatient follow-up. She is to call her surgeon on Wednesday. Lab Data Laboratory Results Urine Color Yellow (Yellow) 08/27/24 00:15 Urine Appearance Clear (CLEAR) 08/27/24 00:15 Urine pH 6.5 (5-7) 08/27/24 00:15 Ur Specific [place] 1.005 (1.005-1.030) 08/27/24 00:15 Urine Protein Neg (Negative) 08/27/24 00:15 Urine Glucose (UA) Norm (Normal) 08/27/24 00:15 Urine Ketones Negative (Negative) 08/27/24 00:15 Urine Blood Neg (Negative) 08/27/24 00:15 Urine Nitrate Negative (Negative) 08/27/24 00:15 Urine Bilirubin Neg (Negative) 08/27/24 00:15 Urine Urobilinogen Norm mg/dL (Negative) 08/27/24 00:15 Ur Leukocyte Esterase 2+ (Negative) H 08/27/24 00:15 Urine RBC 0-2 /hpf (0-2) 08/27/24 00:15 Urine WBC 21-50 /hpf (0-5) H 08/27/24 00:15 Ur Squamous Epith Cells 6-10 /hpf (0-5) 08/27/24 00:15 Amorphous Sediment Not Reportable 08/27/24 00:15 Urine Bacteria Trace /hpf (NONE) 08/27/24 00:15 Hyaline Casts 0-4 /lpf H 08/27/24 00:15 C. trachomatis (PCR) Not detected 08/27/24 00:30 N. gonorrhoeae (PCR) Not detected 08/27/24 00:30 T. vaginalis (PCR) Not detected 08/27/24 00:30 No radiology studies performed this visit Discharge Plan Discharge Patient Disposition: Home Clinical Impression: Urinary tract infection Condition: Stable Prescriptions: New cefdinir 300 mg capsule 300 mg PO BID Qty: 14 0RF hydrocodone-acetaminophen 5-325 mg tablet 1 tab PO Q8H PRN (Reason: pain) Qty: 7 0RF No Action Plus 29 mg iron- 1 mg tablet 1 tab PO DAILY Qty: 30 5RF metoclopramide HCl [Reglan] 10 mg tablet 10 mg PO Q6H PRN (Reason: nausea and vomiting) Qty: 20 0RF Discharge Orders: Discharge ED (Routine); Ordered 08/27/24 Ordered By: Haresh Braden Referrals: Muna Feng, DIRECTOR OF STRATEGY & MOBILE-C [Primary Care Provider] - 1-3 days Patient Instructions: Urinary Tract Infection in (ED), Opioid Safety, Pain Management Activity Restrictions/Additional Instructions: Pain medication as needed for significant pain. Antibiotics as directed. Return for fever greater than 100 despite 2-3 doses. Increasing discharge despite 2-3 doses, any other concerning symptoms. Call your surgeon on Wednesday and let them know you are here, they may wish to see you sooner than your sche duled follow-up. Print Language: Persian Coding Level of Care Code ED Patient Day Coordinator for Myra Cerrato
[2024-08-27 00:23] LABS: Add Urine Microscopic? YES; Bilirubin Urine Neg (Negative); Blood Urine Neg (Negative); Glucose Urine UA Norm (Normal); Ketones Urine Negative (Negative); Leukocyte Esterase Urine 2+ (Negative); Nitrate Urine Negative (Negative); Protein Urine Neg (Negative); Specific Gravity, Urine 1.005 (1.005-1.030); Urine Appearance Clear (CLEAR); Urine Color Yellow (Yellow); Urobilinogen Urine Norm (Negative); pH Urine 6.5 (5-7)
[2024-08-27 00:27] LABS: Add Urine Culture? Yes; Bacteria Urine Trace /hpf; Hyaline Casts Urine 0-4 /lpf; RBC Urine 0-2 /hpf (0-2); WBC Urine 21-50 /hpf (0-5)
[2024-08-27] MEDS: oxyCODONE-APAP 5-325 mg Tablet 2 TAB PO (00:42)
[2024-08-27] MEDS: cefdinir 300 MG CAPSULE PO (01:10)
[2024-08-27 02:13] LABS: Trichomonas vaginalis (PCR) NOT DETECTED
[2024-08-27 02:20] LABS: Chlamydia Trachomatis NOT DETECTED; Neisseria Gonorrhea NOT DETECTED
== END 2024-08-27 01:13 | disposition home or self-care (01) ==
PROVIDERS: Emergency Provider Emergency Medicine; PCP Nurse Practitioner
DX: N39.0 Urinary tract infection, site not specified (principal); Z98.890 Other specified postprocedural states
CPT/HCPCS: 81001; 87086; 87491; 87591; 87661; 99283; J9999

== ENCOUNTER 2024-08-27 15:41 | Emergency (ER) | payer MEDICAID, SELFPAY ==
[2024-08-27 15:46] VITALS: BP 119/74; PULSE 74; RESP 15; TEMP 36.5; O2SAT 100; BMI 34.0
--- NOTE | 2024-08-27 16:03 | USR_ITS ---
PROCEDURE INFORMATION: Exam: US , Limited Exam date and time: 08/27/2024 5:18 PM Age: 24 years old Clinical indication: Lmp or gestational age (in weeks): 18w2d; Antepartum complications; Bleeding; ; Prior surgery; Surgery date: <1 month; Surgery type: Patient had cerclage done; Additional info: Vaginal bleeding, 18 weeks , high risk, cerclage LABS AND CLINICAL REPORTS: Gestational age (Established): 18 w 2 d Estimated due date (Established): 01/26/2025 TECHNIQUE: Imaging protocol: Real-time ultrasound of the maternal uterus with image documentation. Exam focused on the clinical indication. COMPARISON: US OB <=14 wk fetus w transvag 06/03/2024 6:15 PM FINDINGS: Gestation: activity is present. heart rate: 167 bpm. heart rate of 167 bpm. Placenta: The placenta is anterior in position. MATERNAL: Cervix: Cervical length measures 4.3 cm. The cervix is 4.3 cm in length and is closed. Other findings: Estimated age is 18 weeks and 2 days US/US OB limited [id number] IMPRESSION: Unremarkable limited exam.
--- NOTE | 2024-08-27 16:18 | W.ED.PREGNAN ---
HPI - General: Chief complaint: Vaginal Bleeding Stated complaint: vaginal bleed, 18 weeks preg Time Seen by Provider: 08/27/24 15:59 History of Present Illness: Patient presents to the ER with complaints of vaginal bleeding. Patient is 18 weeks , with a high risk, with a cerclage present. Patient presented here last night with low abdominal pain. Patient had speculum exam was given hydrocodone and diagnosed with a UTI. Patient said she went home went to sleep about 2:00 this afternoon was noted to have vaginal bleeding. She said she used 1 pad total today. 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 Related Data Previous Rx's ?Medication ?Instructions ?Recorded vitamins with calcium 1 tab PO DAILY #30 tabs 05/31/24 no.72-iron 29 mg-folic acid 1 mg tablet ( Plus) cefdinir 300 mg capsule 300 mg PO BID #14 caps 08/27/24 hydrocodone 5 mg-acetaminophen 325 1 tab PO Q8H PRN pain #7 tabs 08/27/24 mg tablet Allergies Allergy/AdvReac Type Severity Reaction Status Date / Time Bleach (Sodium Hypochlorite) Allergy Severe ALGY-Redness Verified 08/26/24 23:36 of Skin Review of Systems General: Reports: 10 or more systems reviewed and unremarkable except in HPI and below PFSH ED PFSH: Medical History Recurrent loss Obesity (BMI 30-39.9) Recurrent oral ulcers Asthma Scoliosis Surgical History No significant past surgical history Family History Other CAD (coronary artery disease) Cancer Chronic kidney disease (CKD) Diabetes Hypertension Denies family history of Anesthesia complication Stroke Social History Smoking and tobacco/nicotine status: former use of tobacco/nicotine Second hand smoke exposure: No Alcohol intake: unknown Substance/Drug Use: unknown Adopted: No Caregiver/support person: No Lives independently: No Household members: significant other and family Housing: House Marital status: Single Number of children: 1 service: No Current occupational status: unemployed Current occupational exposures/hazards: No Current gender identity: Female Female Reproductive History: Para: 1 Supplemental [facility] Information: s Physical Exam Const: COMMON NORMALS: no acute distress, average body habitus, patient oriented x3, no limitations, healthy appearing, alert and well nourished HENMT: COMMON NORMALS: normocephalic, atraumatic, hearing grossly normal bilaterally, external ears normal, Normal external nose present, moist oral mucous membranes and oropharynx normal HEAD & SCALP: normocephalic and atraumatic NOSE: Normal external nose present EXTERNAL EAR: Yes external ears normal Eye: COMMON NORMALS: Equal, round and reactive pupils present, EOMs intact bilaterally, conjunctivae normal and no scleral icterus CONJUNCTIVA: Yes conjunctivae normal PUPIL: Yes Equal, round and reactive pupils present Neck/C-Spine: COMMON NORMALS: no JVD Chest: COMMONS NORMALS: normal inspection of the chest and normal palpation of entire chest wall Resp: COMMON NORMALS: normal respiratory effort, No retractions, No use of accessory muscles and clear to auscultation bilaterally AUSCULTATION: clear to auscultation bilaterally Cardio: COMMON NORMALS: no JVD, regular rate, regular rhythm, S1 normal heart sound present, S2 normal heart sound present, No gallops present (Cardio), No clicks present (Cardio) and No murmurs present (Cardio) RATE: regular rate RHYTHM: regular rhythm HEART SOUNDS: S1 normal heart sound present and S2 normal heart sound present GI: COMMON NORMALS: Normal to inspection, nondistended, normoactive bowel sounds present, Soft to palpation and No hepatosplenomegaly present PALPATION: Yes Soft to palpation and Yes No hepatosplenomegaly present Neuro: COMMON NORMALS: patient oriented x3 SENSORIUM/ORIENTATION: Yes alert Course Vital Signs: Vital signs: Vital Signs Temperature 97.7 F 08/27/24 15:46 Pulse Rate 74 08/27/24 15:46 Respiratory Rate 15 08/27/24 15:46 Blood Pressure 119/74 08/27/24 15:46 Pulse Oximetry 100 08/27/24 15:46 Oxygen Delivery Me thod Room Air 08/27/24 15:46 MDM - OB/Uterine Contractions Medical Decision Making Ultrasound was performed by ultrasound read by radiology as unremarkable limited exam. Patient be discharged home. Patient should follow-up with her high school football coach. Medical Records I reviewed the patient's medical records. Lab Data I reviewed the patient's lab results. Radiology Impressions Obstetrics Ultrasound 08/27/24 16:03 IMPRESSION: Unremarkable limited exam. All radiology interpretation(s) finalized by discharge Discharge Plan Discharge Patient Disposition: Home Clinical Impression: Vaginal bleeding in Condition: Stable Prescriptions: No Action Plus 29 mg iron- 1 mg tablet 1 tab PO DAILY Qty: 30 5RF cefdinir 300 mg capsule 300 mg PO BID Qty: 14 0RF hydrocodone-acetaminophen 5-325 mg tablet 1 tab PO Q8H PRN (Reason: pain) Qty: 7 0RF Discharge Orders: Discharge ED (Routine); Ordered 08/27/24 Ordered By: Shubham Pugh Referrals: Muna Feng, COMPLIANCE PROJECT MANAGER-C [Primary Care Provider] - 1 week Patient Instructions: at 15 to 18 Weeks (ED) Activity Restrictions/Additional Instructions: Your ultrasound was read by the radiologist as unremarkable, they did see a good heart beat, good movement, and your dates were 18 weeks and 2 days. Please follow-up with your high school football coach within the next 3 to 5 days. Print Language: Citizen Of [place] Coding Level of Care Code ED Route Salesman And Driver for Myra Cerrato
--- NOTE | 2024-08-27 17:22 | PC.NURSE ---
Went to doctor and explained that the patient wanted to know how long ultrasound was going to take until they got here, also the patient wanted me to ask the doctor for some tylenol. Patient also states that she is going to pee the bed if ultrasound does not get here soon because her bladder is going to bust .
== END 2024-08-27 18:37 | disposition home or self-care (01) ==
PROVIDERS: Emergency Provider Emergency Medicine; PCP Nurse Practitioner
DX: O20.9 Hemorrhage in early pregnancy, unspecified (principal); Z3A.18 18 weeks gestation of pregnancy; Z87.891 Personal history of nicotine dependence
CPT/HCPCS: 76815; 99284

== ENCOUNTER 2024-09-04 08:29 | Emergency (ER) | payer MEDICAID, SELFPAY ==
[2024-09-04] VITALS (7 sets, daily range): BP systolic 118–128; BP diastolic 57–79; PULSE 64–78; RESP 16–18; TEMP 36.8; O2SAT 96–99; BMI 34.2
--- NOTE | 2024-09-04 09:01 | ED_ITS ---
HPI - Abdominal Pain 2 General: Chief Complaint: Abdominal Pain Stated Complaint: 19 weeks, pelvic pain Time Seen by Provider: 09/04/24 08:33 Source: patient Mode of arrival: ambulatory Limitations: no limitations History of Present Illness: Patient is a 24-year-old female who is currently 19 weeks . Patient reports that last night around 2 AM she began to have throbbing pain which she localizes to what she believes is her cervix. Patient also notes some generalized lower abdominal pain as well as low back pain. She does state that she took some Tylenol this morning for the pain. Patient is currently being seen by a high school math teacher team at [facility] in [place]. She reports that she called them this morning, and they advised her to present to the ER for ultrasound and evaluation. Her first child was born prematurely at 24 weeks. She currently has a cerclage in place. Additionally, patient was recently treated for a UTI and kidney infection. She reports that she is still currently taking cephalexin and oxybutynin. MD elicited complaint: abdominal pain Pertinent past history: past UTI (Currently on cephalexin) Onset (ago): hour(s) Pain Consistency: intermittent Location: RLQ, LLQ, Suprapubic and Pelvis Severity: moderate Quality: cramping and other (Throbbing) Radiation: back Migration to: no migration Exacerbating factors: nothing Relieving factors: nothing Associated Symptoms: Reports GI cramping and nausea; Denies change in bowel habits, dysuria, fever(s), syncope and vomiting Treatments prior to arrival: other (Tylenol) Related Data Home Medications ?Medication ?Instructions ?Recorded ?Confirmed acetaminophen 650 mg 975 mg PO Q12H PRN Pain 08/2209/04/24 tablet,extended release cephalexin 500 mg capsule 500 mg PO QID 09/04/2409/04 oxybutynin chloride 5 mg tablet 5 mg PO BID 09/04/24 0 09/04/24 Previous Rx's ?Medication ?Instructions ?Recorded vitamins with calcium 1 tab PO DAILY #30 tabs 05/31/24 no.72-iron 29 mg-folic acid 1 mg tablet ( Plus) hydrocodone 5 mg-acetaminophen 325 1 tab PO Q8H PRN pa in #7 tabs 08/27/24 mg tablet Allergies Allergy/AdvReac Type Severity Reaction Status Date / Time Bleach (Sodium Hypochlorite) Allergy Severe ALGY-Redness Verified 08/26/24 23:36 of Skin Review of Systems 2 Const: Reports: fatigue; Denies: fever(s) Eyes: Denies: change in vision Card: Denies: chest pain, palpitations, lightheadedness or syncope Resp: Denies: dyspnea GI: Reports: abdominal pain, nausea and GI cramping; Denies: vomiting or change in bowel habits : Reports: pelvic pain; Denies: flank pain, difficulty voiding, dysuria or vaginal bleeding Musc: Reports: back pain Neuro: Reports: headache(s) PFSH ED 2 PFSH: Medical History Recurrent loss Obesity (BMI 30-39.9) Recurrent oral ulcers Asthma Scoliosis Surgical History No significant past surgical history Family History Other CAD (coronary artery disease) Cancer Chronic kidney disease (CKD) Diabetes Hypertension Denies family history of Anesthesia complication Stroke Social History Smoking and tobacco/nicotine status: former use of tobacco/nicotine Second hand smoke exposure: No Alcohol intake: unknown Substance/Drug Use: unknown Adopted: No Caregiver/support person: No Lives independently: No Household members: significant other and family Housing: House Marital status: Single Number of children: 1 service: No Current occupational status: unemployed Current occupational exposures/hazards: No Current gender identity: Female Female Reproductive History: Para: 1 Physical Exam 2 Const: COMMON NORMALS: no acute distress, patient oriented x3, no limitations, healthy appearing, alert and well nourished GENERAL APPEARANCE: cooperative ORIENTATION/CONSCIOUSNESS: Yes awake, Yes oriented to person, Yes oriented to place and Yes oriented to time HENMT: COMMON NORMALS: hearing grossly normal bilaterally, external ears normal and Normal external nose present NOSE: Normal external nose present EXTERNAL EAR: Yes external ears normal Chest: COMMONS NORMALS: normal inspection of the chest and normal palpation of entire chest wall CHEST: Yes Symmetrical chest wall rise Resp: COMMON NORMALS: normal respiratory effort, No retractions, No use of accessory muscles and clear to auscultation bilaterally EFFORT & INSPECTION: Yes able to speak in complete sentences AUSCULTATION: clear to auscultation bilaterally Cardio: COMMON NORMALS: regular rate and regular rhythm RATE: regular rate RHYTHM: regular rhythm GI: COMMON NORMALS: Soft to palpation INSPECTION: Yes gravid abdomen P ALPATION: Yes Soft to palpation, Yes Tenderness to palpation present (GI) (mild) Details: LLQ and RLQ, No Guarding due to palpation present (GI) and No Rigid due to palpation : COMMON NORMALS: Yes no CVA tenderness BLADDER/KIDNEY EXAM: Yes no CVA tenderness Back/Pelvis: COMMON NORMALS: no CVA tenderness Extremity: GENERAL: Yes normal exam except as noted Neuro: COMMON NORMALS: patient oriented x3 SENSORIUM/ORIENTATION: Yes alert, Yes oriented to person, Yes oriented to place and Yes oriented to time Skin: COMMON NORMALS: no rashes or lesions noted GENERAL SKIN EXAM: no rashes or lesions noted Course 2 Consultations: Consultation #1: Dr. Gibson-discussed US imaging; recommending consulting with her [facility] physician Consultation #2: Dr. Meadows [facility] physician-discussed today's US imaging-stated he had recent imaging through their office and compared cervical length and did not feel there was any discernible differences on today's exam; stated she had follow up appointment already scheduled for 09/13; he felt comfortable waiting until then to see her however if she would like to be seen sooner, he asked that she contact their office and he will try to work her in for a sooner appointment Vital Signs: Vital signs: Vital Signs Temperature 98.2 F 09/04/24 08:44 Pulse Rate 75 09/04/24 10:12 Respiratory Rate 16 09/04/24 11:04 Blood Pressure 118/57 09/04/24 08:44 Pulse Oximetry 99 09/04/24 12:19 Oxygen Delivery Me thod Room Air 09/04/24 12:19 MDM - Abdominal Pain Medical Decision Making Patient here for lower pelvic discomfort. She is approximately 19 weeks with a cervical cerclage. She is not having any vaginal bleeding. She clinically appears no acute distress. Vital signs are stable. Blood work overall is unremarkable. UA is somewhat contaminated. She was diagnosed with UTI in 08/27 and placed on antibiotics for this. Her culture came back negative. Spoke to her OB provider here as well as her [facility] physician and went over today's ultrasound results. He feels comfortable following up with her next week as scheduled. Return precautions discussed. Medical Records I reviewed the patient's medical records. Lab Data I reviewed the patient's lab results. 09/04/24 08:55 09/04/24 08:55 Labs/Radiology: Radiology Impressions Obstetrics Ultrasound 09/04/24 09:01 IMPRESSION: 1. Cervical length has slightly decreased in length and now is 2.3 cm. Cerclage does appear to remain intact. Prior cervical measurement of 4.3 cm. 2. Normal heart rate. 3. Normal amount of amniotic fluid. Laboratory Results WBC 8.55 10^3/uL (3.29-11.43) 09/04/24 08:55 RBC 3.75 10^6/uL (3.85-5.65) L 09/04/24 08:55 Hgb 11.30 g/dL (11.27-16.99) 09/04/24 08:55 Hct 33.9 % (36-47) L 09/04/24 08:55 MCV 90.4 fl (85-98) 09/04/24 08:55 MCH 30.1 pg (27-33) 09/04/24 08:55 MCHC 33.3 g/dL (30-55) 09/04/24 08:55 RDW 12.5 % (12.1-15.1) 09/04/24 08:55 Plt Count 217 10^3/cmm (157-399) 09/04/24 08:55 MPV 10.5 fL (7.4-10.4) H 09/04/24 08:55 Neut % (Auto) 57.2 % 09/04/24 08:55 Lymph % (Auto) 32.3 % 09/04/24 08:55 [place] % (Auto) 7.4 % 09/04/24 08:55 Eos % (Auto) 1.9 % 09/04/24 08:55 Baso % (Auto) 0.5 % 09/04/24 08:55 Neut # (Auto) 4.90 10^3/uL (1.8-7.7) 09/04/24 08:55 Lymph # (Auto) 2.8 10^3/uL (0.8-4.8) 09/04/24 08:55 [place] # (Auto) 0.6 10^3/uL (0.2-0.9) 09/04/24 08:55 Eos # (Auto) 0.2 10^3/uL (0.0-0.8) 09/04/24 08:55 Baso # (Auto) 0.0 10^3/uL (0.0-0.1) 09/04/24 08:55 Nucleated RBC % (auto) 0 % 09/04/24 08:55 Nucleated RBCs # 0.0 /100WBC 09/04/24 08:55 Sodium 136 mmol/L (136-145) 09/04/24 08:55 Potassium 3.8 mmol/L (3.5-5.1) 09/04/24 08:55 Chloride 104 mmol/L (98-107) 09/04/24 08:55 Carbon Dioxide 21 mmol/L (22-29) L 09/04/24 08:55 Anion Gap 14.8 (5-19) 09/04/24 08:55 BUN 9 mg/dL (6-20) 09/04/24 08:55 Creatinine 0.5 mg/dL (0.5-0.9) 09/04/24 08:55 GFR Calculation 154.3 mL/min (90-130) H 09/04/24 08:55 Glucose 81 mg/dL (65-115) 09/04/24 08:55 Calculated Osmolality 280 mOsm/kg (285-295) L 09/04/24 08:55 Calcium 9.7 mg/dL (8.5-10.5) 09/04/24 08:55 Total Bilirubin 0.5 mg/dL (0.15-1.2) 09/04/24 08:55 AST 13 U/L (0-32) 09/04/24 08:55 ALT 15 U/L (0-33) 09/04/24 08:55 Alkaline Phosphatase 44 U/L (35-105) 09/04/24 08:55 Total Protein 6.6 g/dL (6.6-8.7) 09/04/24 08:55 Albumin 3.7 g/dL (3.5-5.2) 09/04/24 08:55 Globulin 2.9 g/dL (1.3-4.6) 09/04/24 08:55 Urine Color Yellow (Yellow) 09/04/24 08:40 Urine Appearance Clear (CLEAR) 09/04/24 08:40 Urine pH 6 (5-7) 09/04/24 08:40 Ur Specific [place] 1.010 (1.005-1.030) 09/04/24 08:40 Urine Protein Neg (Negative) 09/04/24 08:40 Urine Glucose (UA) Norm (Normal) 09/04/24 08:40 Urine Ketones Negative (Negative) 09/04/24 08:40 Urine Blood Neg (Negative) 09/04/24 08:40 Urine Nitrate Negative (Negative) 09/04/24 08:40 Urine Bilirubin Neg (Negative) 09/04/24 08:40 Urine Urobilinogen Norm mg/dL (Negative) 09/04/24 08:40 Ur Leukocyte Esterase 1+ (Negative) H 09/04/24 08:40 Urine RBC 0-2 /hpf (0-2) 09/04/24 08:40 Urine WBC 11-20 /hpf (0-5) H 09/04/24 08:40 Ur Squamous Epith Cells 6-10 /hpf (0-5) 09/04/24 08:40 Amorphous Sediment Not Reportable 09/04/24 08:40 Urine Bacteria Trace /hpf (NONE) 09/04/24 08:40 Hyaline Casts 0-4 /lpf H 09/04/24 08:40 All radiology interpretation(s) finalized by discharge Discharge Plan Discharge Patient Disposition: Home Clinical Impression: Pelvic pain affecting Qualifiers: Trimester: second trimester Qualified Code(s): O26.892 - Other specified related conditions, second trimester Cervical cerclage suture present Qualifiers: Trimester: second trimester Qualified Code(s): O34.32 - Maternal care for cervical incompetence, second trimester Condition: Stable Prescriptions: No Action Plus 29 mg iron- 1 mg tablet 1 tab PO DAILY Qty: 30 5RF acetaminophen [Tylenol Arthritis] 650 mg Tablet Extended Release 975 mg PO Q12H PRN (Reason: Pain) cephalexin 500 mg capsule 500 mg PO QID oxybutynin chloride 5 mg tablet 5 mg PO BID hydrocodone-acetaminophen 5-325 mg tablet 1 tab PO Q8H PRN (Reason: pain) Qty: 7 0RF Discharge Orders: Discharge ED (Routine); Ordered 09/04/24 Ordered By: Amanda Fuentes Referrals: Muna Feng, INTERNET MARKETING DIRECTOR-C [Primary Care Provider] - Activity Restrictions/Additional Instructions: As we discussed, I spoke with your [facility] provider Dr. Espinosa and went over today's ultrasound imaging. He felt comfortable with you following up at your current appointment on 09/13. If you feel you would like to be seen sooner, he asked that you contact the clinic and they will try to work you in for a sooner appointment. You may return to the emergency department or OB department for worsening pain, vaginal bleeding, or any other concerns you may have. Print Language: Dominican Coding Level of Care Code ED Hair Boiler Operator for Myra Cerrato
--- NOTE | 2024-09-04 09:01 | US_ITS ---
WS: [id number] Obstetrical ultrasound, limited. HISTORY: Pelvic pain and discomfort. History of cervical insufficiency. Recent cerclage. COMPARISON: 08/27/2024. Transvaginal, translabial and transabdominal imaging is performed of the cervix. Cervix is best identified on the transabdominal imaging after distended the bladder. Length of the cervix is 2.3 cm. This does represent a slight decrease in size and mild foreshortening as compared to the recent study of 08/27/2024. There is very slight widening of the internal os. Cerclage appears to be intact. Normal amount of amniotic fluid. The head is at the cervical os. No placenta previa. heart rate 155 bpm. US/US OB lmt with transvaginal IMPRESSION: 1. Cervical length has slightly decreased in length and now is 2.3 cm. Cerclag e does appear to remain intact. Prior cervical measurement of 4.3 cm. 2. Normal heart rate. 3. Normal amount of amniotic fluid.
[2024-09-04 09:03] LABS: Basophils % 0.5 %; Eosinophils # 0.2 10^3/uL (0.0-0.8); Eosinophils % 1.9 %; Hematocrit 33.9 % (36-47); Lymphocytes # 2.8 10^3/uL (0.8-4.8); Lymphocytes % 32.3 %; Mean Corpuscular HGB Conc 33.3 g/dL (30-55); Mean Corpuscular Hemoglobin 30.1 pg (27-33); Mean Corpuscular Volume 90.4 fl (85-98); Mean Platelet Volume 10.5 fL (7.4-10.4); Monocytes # 0.6 10^3/uL (0.2-0.9); Monocytes % 7.4 %; Neutrophils % 57.2 %; Nucleated Red Blood Cells % 0 %; Platelet Count 217 10^3/cmm (157-399); Red Blood Count 3.75 10^6/uL (3.85-5.65); Red Cell Distribution Width 12.5 % (12.1-15.1); White Blood Count 8.55 10^3/uL (3.29-11.43)
[2024-09-04 09:15] LABS: Bacteria Urine Trace /hpf; Hyaline Casts Urine 0-4 /lpf; RBC Urine 0-2 /hpf (0-2)
[2024-09-04 09:19] LABS: Urine Appearance Clear (CLEAR); Urine Color Yellow (Yellow); pH Urine 6 (5-7)
[2024-09-04 09:20] LABS: Add Urine Culture? No; Add Urine Microscopic? YES; Bilirubin Urine Neg (Negative); Blood Urine Neg (Negative); Glucose Urine UA Norm (Normal); Ketones Urine Negative (Negative); Leukocyte Esterase Urine 1+ (Negative); Nitrate Urine Negative (Negative); Protein Urine Neg (Negative); Urobilinogen Urine Norm (Negative)
[2024-09-04 09:21] LABS: Alanine Aminotransferase 15 U/L (0-33); Albumin Level 3.7 g/dL (3.5-5.2); Alkaline Phosphatase 44 U/L (35-105); Anion Gap 14.8 (5-19); Aspartate Amino Transferase 13 U/L (0-32); Blood Urea Nitrogen 9 mg/dL (6-20); Calcium 9.7 mg/dL (8.5-10.5); Carbon Dioxide 21 mmol/L (22-29); Chloride 104 mmol/L (98-107); Creatinine Clr Calc Pharmacy 171.4016; Globulin 2.9 g/dL (1.3-4.6); Glomerular Filtration Rate 154.3 mL/min (90-130); Glucose 81 mg/dL (65-115); Osmolality Calculated 280 mOsm/kg (285-295); Potassium 3.8 mmol/L (3.5-5.1); Sodium 136 mmol/L (136-145); Total Bilirubin 0.5 mg/dL (0.15-1.2); Total Protein 6.6 g/dL (6.6-8.7)
== END 2024-09-04 14:43 | disposition home or self-care (01) ==
PROVIDERS: Family Medicine; Emergency Provider Physician Assistant; PCP Nurse Practitioner
DX: O26.892 Other specified pregnancy related conditions, second trimester (principal); O34.32 Maternal care for cervical incompetence, second trimester; Z3A.19 19 weeks gestation of pregnancy; Z87.891 Personal history of nicotine dependence
CPT/HCPCS: 36415; 76815; 76817; 80053; 81001; 85025; 99284

== ENCOUNTER 2024-10-04 12:15 | Outpatient (CLI) | payer MEDICAID, SELFPAY ==
[2024-10-04] VITALS (7 sets, daily range): BP systolic 101–127; BP diastolic 56–63; PULSE 65–76; RESP 18; BMI 35.4
--- NOTE | 2024-10-04 12:53 | US_ITS ---
WS: [id number] ULTRASOUND OB FOCUSED HISTORY: Vaginal Bleeding, cerclage COMPARISON: 09/04/2024 Single intrauterine gestation is identified. Cervix is closed measuring 2.6 cm. Cerclage sutures not definitely identified. Cervical length is slightly decreased. heart rate at 171 BPM. Normal amount of amniotic fluid. US/US OB >= 14 weeks fetus [id number] IMPRESSION: 1. Cervix is closed at 2.6 cm. No fluid along the cervical canal. 2. Normal amniotic fluid.
== END 2024-10-04 13:43 | disposition home or self-care (01) ==
LOC: OPOB 12:19 → OBGYN 12:19
PROVIDERS: PCP Nurse Practitioner; Visit Provider Family Medicine
DX: O46.90 Antepartum hemorrhage, unspecified, unspecified trimester (principal); Z3A.00 Weeks of gestation of pregnancy not specified
CPT/HCPCS: 76805; 99211

== ENCOUNTER 2024-10-22 22:42 | Outpatient (CLI) | payer MEDICAID, SELFPAY ==
[2024-10-22 23:02] VITALS: BP 123/71; PULSE 100
[2024-10-22 23:03] VITALS: TEMP 36.1
[2024-10-22 23:07] VITALS: BMI 36.1
[2024-10-22 23:17] VITALS: BP 124/67; PULSE 95
[2024-10-22 23:17] LABS: Bilirubin Urine Negative (Negative); Blood Urine Negative (Negative); Glucose Urine UA Negative (Normal); Ketones Urine Negative (Negative); Leukocyte Esterase Urine 2+ (Negative); Nitrate Urine Negative (Negative); Protein Urine Negative (Negative); Specific Gravity, Urine 1.017 (1.005-1.030); Urine Appearance Clear (CLEAR); Urine Color Yellow (Yellow)
[2024-10-22 23:19] LABS: Bacteria Urine 1+ /hpf; Hyaline Casts Urine 0-4 /lpf; RBC Urine 0-2 /hpf (0-2); Squamous Epithelial Cell Urine 0-5 /hpf (0-5)
[2024-10-22 23:32] VITALS: BP 118/67; PULSE 102
[2024-10-22] MEDS: nitrofurantoin SR (BID) 100 mg Capsule PO (23:37)
[2024-10-22 23:45] VITALS: BP 118/67; PULSE 102; RESP 16; TEMP 36.1; O2SAT 99
== END 2024-10-22 23:45 | disposition home or self-care (01) ==
LOC: OPOB 22:43 → OBGYN 22:44
PROVIDERS: PCP Nurse Practitioner; Visit Provider Family Medicine
DX: O26.899 Other specified pregnancy related conditions, unspecified trimester (principal); Z3A.00 Weeks of gestation of pregnancy not specified; R10.30 Lower abdominal pain, unspecified
CPT/HCPCS: 81001; 99211; J9999

== ENCOUNTER 2024-11-15 08:14 | Outpatient (CLI) | payer MEDICAID, SELFPAY ==
[2024-11-15] VITALS (35 sets, daily range): BP systolic 91–120; BP diastolic 51–69; PULSE 62–117; O2SAT 97–100; BMI 36.6
--- NOTE | 2024-11-15 09:28 | US_ITS ---
WS: [id number] Limited obstetrical ultrasound. HISTORY: Evaluate cervical length. COMPARISON: 10/04/2024, 09/04/2024. Transabdominal and transvaginal imaging submitted. Shortened cervical length as seen on prior studies measures 2.6 cm. Cervical length similar to prior exams. There is mild cervical shortening and cerclage is noted. There is no widely open cervix. The cervix has been short on prior imaging studies also. The cerclage stitch is not well seen. The appearance of the cervical length is very similar to the prior examination of 10/04/2024. US/US OB transvaginal [id number] IMPRESSION: 1. Cervical length is shortened to 2.6 cm. Very similar in appearance to prior studies. 2. The appearance of the cervical length is very similar to the study of 025.
[2024-11-15 09:31] LABS: Urine Appearance Cloudy (CLEAR); Urine Color Yellow (Yellow)
[2024-11-15 09:32] LABS: UA Manual Slide Review YES
[2024-11-15 09:33] LABS: Add Urine Culture? No; Bacteria Urine 3+ /hpf; Squamous Epithelial Cell Urine 21-50 /hpf (0-5); WBC Urine 25-40 /hpf (0-5)
[2024-11-15] MEDS: lactated ringers 1,000 ML 999 ML IV ×2 (09:40→11:19)
[2024-11-15] MEDS: terbutaline 1 mg/mL INJ 0.25 MG SUBCUT (09:40)
[2024-11-15] MEDS: betamethasone susp 6 mg/mL 5 mL 12 MG IM (10:04)
[2024-11-15 10:49] LABS: Bilirubin Urine Negative (Negative); Blood Urine Negative (Negative); Glucose Urine UA Negative (Normal); Ketones Urine 1+ (Negative); Leukocyte Esterase Urine 2+ (Negative); Nitrate Urine Negative (Negative); Protein Urine Negative (Negative); Specific Gravity, Urine 1.007 (1.005-1.030); Urine Appearance Clear (CLEAR); Urine Color Yellow (Yellow); pH Urine 6.5 (5-7)
[2024-11-15 10:54] LABS: Bacteria Urine Trace /hpf; Hyaline Casts Urine 0-4 /lpf; RBC Urine 0-2 /hpf (0-2); Squamous Epithelial Cell Urine 0-5 /hpf (0-5); WBC Urine 21-50 /hpf (0-5)
[2024-11-15 10:58] LABS: Add Urine Culture? Yes
[2024-11-15] MEDS: cefTRIAXone 1,000 mg SDV 1000 MG IVP (11:24)
== END 2024-11-15 12:15 | disposition home or self-care (01) ==
LOC: OPOB 08:19 → OBGYN 08:20
PROVIDERS: PCP Nurse Practitioner; Visit Provider Family Medicine
DX: O26.899 Other specified pregnancy related conditions, unspecified trimester (principal); Z3A.00 Weeks of gestation of pregnancy not specified; M54.9 Dorsalgia, unspecified
CPT/HCPCS: 59025; 76817; 81001; 87086; 96372; 99211; J0696; J0702; J3105; J7120

== ENCOUNTER 2024-11-16 11:12 | Outpatient (CLI) | payer MEDICAID, SELFPAY ==
[2024-11-16 11:17] VITALS: RESP 18; BMI 37.0
[2024-11-16] MEDS: betamethasone susp 6 mg/mL 5 mL 12 MG IM (11:22)
== END 2024-11-16 11:31 | disposition home or self-care (01) ==
LOC: OPOB 11:12
PROVIDERS: PCP Nurse Practitioner; Visit Provider Family Medicine
DX: O60.00 Preterm labor without delivery, unspecified trimester (principal); Z3A.00 Weeks of gestation of pregnancy not specified
CPT/HCPCS: 96372; J0702

== ENCOUNTER 2024-11-16 12:35 | Outpatient (CLI) | payer MEDICAID, SELFPAY ==
[2024-11-16] VITALS (9 sets, daily range): BP systolic 97–116; BP diastolic 51–67; PULSE 77–100; RESP 18; TEMP 35.4; BMI 37.0
[2024-11-16] MEDS: cefTRIAXone 1,000 MG, lidocaine 1% 2.1 ML in SYRINGE 1 EACH 2.1 MG IM (13:54)
== END 2024-11-16 14:50 | disposition home or self-care (01) ==
LOC: OPOB 12:35 → OBGYN 12:47
PROVIDERS: PCP Nurse Practitioner; Visit Provider Family Medicine
DX: O26.899 Other specified pregnancy related conditions, unspecified trimester (principal); Z3A.00 Weeks of gestation of pregnancy not specified; R10.9 Unspecified abdominal pain
CPT/HCPCS: 59025; 96372; 99211; J0696; J9999

== ENCOUNTER 2024-11-20 14:49 | Oncology outpatient (recurring) (ONCR) | payer MEDICAID, SELFPAY ==
[2024-11-20] MEDS: rho(d) immune globulin 1,500 unit Syringe 1500 UNIT IM (15:35)
[2024-11-20 15:40] VITALS: BP 113/70; PULSE 102; RESP 16; TEMP 36.7; O2SAT 99
== END 2024-11-20 23:59 | disposition home or self-care (01) ==
PROVIDERS: PCP Nurse Practitioner; Visit Provider Family Medicine
DX: O26.899 Other specified pregnancy related conditions, unspecified trimester (principal)
CPT/HCPCS: 96372; J2790

== ENCOUNTER 2024-11-26 19:18 | Outpatient (CLI) | payer MEDICAID, SELFPAY ==
[2024-11-26] VITALS (8 sets, daily range): BP systolic 109–112; BP diastolic 60–69; PULSE 82–105; TEMP 36.4; O2SAT 97–99; BMI 37.4
--- NOTE | 2024-11-26 19:31 | PC.NURSE ---
pain is located in cervix
[2024-11-26 19:48] LABS: Glucose Urine UA Negative (Normal); Nitrate Urine Negative (Negative); Specific Gravity, Urine 1.024 (1.005-1.030)
== END 2024-11-26 20:15 | disposition home or self-care (01) ==
LOC: OPOB 19:19 → OBGYN 19:20
PROVIDERS: PCP Nurse Practitioner; Visit Provider Family Medicine
DX: O26.899 Other specified pregnancy related conditions, unspecified trimester (principal); Z3A.00 Weeks of gestation of pregnancy not specified; R10.2 Pelvic and perineal pain
CPT/HCPCS: 59025; 81001; 87086; 99211

== ENCOUNTER 2024-12-18 17:47 | Outpatient (CLI) | payer MEDICAID, SELFPAY ==
[2024-12-18 17:47] VITALS: BMI 38.5
[2024-12-18 18:02] VITALS: BP 113/68; PULSE 70
[2024-12-18 18:17] VITALS: BP 112/70; PULSE 81
[2024-12-18 18:32] VITALS: BP 112/69; PULSE 75
[2024-12-18 18:37] LABS: Glucose Urine UA Negative (Normal); Nitrate Urine Negative (Negative); Specific Gravity, Urine 1.007 (1.005-1.030)
[2024-12-18 18:47] VITALS: BP 124/76; PULSE 80
[2024-12-18 18:59] VITALS: BP 124/76; PULSE 80; RESP 17; O2SAT 98
== END 2024-12-18 18:59 | disposition home or self-care (01) ==
LOC: OPOB 17:56 → OBGYN 17:57
PROVIDERS: PCP Nurse Practitioner; Visit Provider Family Medicine
DX: O26.899 Other specified pregnancy related conditions, unspecified trimester (principal); Z3A.00 Weeks of gestation of pregnancy not specified; R10.9 Unspecified abdominal pain
CPT/HCPCS: 59025; 81001; 99211

== ENCOUNTER 2024-12-20 13:30 | Outpatient (CLI) | payer MEDICAID, SELFPAY ==
[2024-12-20 13:44] VITALS: BP 117/78; PULSE 109
[2024-12-20 13:57] VITALS: BMI 39.1
[2024-12-20 14:00] VITALS: BP 115/73; PULSE 91
[2024-12-20 14:15] VITALS: BP 112/73; PULSE 83
[2024-12-20 14:18] LABS: Glucose Urine UA Negative (Normal); Nitrate Urine Negative (Negative); Specific Gravity, Urine 1.020 (1.005-1.030)
[2024-12-20 14:30] VITALS: BP 127/56; PULSE 97
[2024-12-20 14:45] VITALS: BP 122/71; PULSE 102
[2024-12-20 14:56] VITALS: RESP 18
[2024-12-20 17:01] LABS: Neisseria Gonorrhea NOT DETECTED (Negative)
== END 2024-12-20 15:02 | disposition home or self-care (01) ==
LOC: OPOB 13:33 → OBGYN 13:34
PROVIDERS: PCP Nurse Practitioner; Visit Provider Family Medicine
DX: O26.899 Other specified pregnancy related conditions, unspecified trimester (principal); Z3A.00 Weeks of gestation of pregnancy not specified; N89.8 Other specified noninflammatory disorders of vagina; M54.9 Dorsalgia, unspecified
CPT/HCPCS: 59025; 81001; 84112; 87086; 87491; 87591; 99211

== ENCOUNTER 2024-12-27 00:53 | Outpatient (CLI) | payer MEDICAID, SELFPAY ==
[2024-12-27 01:00] VITALS: BMI 39.1
[2024-12-27 01:14] VITALS: BP 128/62; PULSE 96
[2024-12-27 01:32] VITALS: BP 119/67; PULSE 88
[2024-12-27 01:46] VITALS: BP 121/72; PULSE 99
[2024-12-27 02:19] VITALS: BP 121/79; PULSE 99; RESP 17; TEMP 36.4; O2SAT 97
[2024-12-27 02:33] LABS: Nitrazine Paper, PH Negative
== END 2024-12-27 02:19 | disposition home or self-care (01) ==
LOC: OPOB 00:54 → OBGYN 00:55
PROVIDERS: PCP Nurse Practitioner; Visit Provider Family Medicine
DX: O34.30 Maternal care for cervical incompetence, unspecified trimester (principal); Z3A.00 Weeks of gestation of pregnancy not specified; N89.8 Other specified noninflammatory disorders of vagina
CPT/HCPCS: 59025; 83986; 99211

== ENCOUNTER 2025-01-20 11:35 | Outpatient (CLI) | payer OTHER, SELFPAY ==
[2025-01-20 11:35] VITALS: BMI 41.3
[2025-01-20 11:50] VITALS: BP 131/74; PULSE 68
[2025-01-20 12:45] VITALS: BP 145/65; PULSE 71
== END 2025-01-20 13:03 | disposition home or self-care (01) ==
LOC: OPOB 11:36 → OBGYN 11:37
PROVIDERS: PCP Nurse Practitioner; Visit Provider Family Medicine
DX: O26.899 Other specified pregnancy related conditions, unspecified trimester (principal); Z3A.00 Weeks of gestation of pregnancy not specified; R52 Pain, unspecified
CPT/HCPCS: 59025; 99211

== ENCOUNTER 2025-01-23 17:51 | Inpatient (IN) | payer MEDICAID, SELFPAY ==
[2025-01-23] VITALS (57 sets, daily range): BP systolic 143–182; BP diastolic 80–107; PULSE 50–107; RESP 16–18; TEMP 36.7; O2SAT 94–100; BMI 41.0
[2025-01-23 17:50] LABS: Hematocrit 32.6 % (36-47); Hemoglobin 10.80 g/dL (11.27-16.99); Mean Corpuscular HGB Conc 33.1 g/dL (30-55); Mean Corpuscular Hemoglobin 28.3 pg (27-33); Mean Corpuscular Volume 85.6 fl (85-98); Nucleated Red Blood Cells % 0 %; Platelet Count 173 10^3/cmm (157-399); Red Blood Count 3.81 10^6/uL (3.85-5.65); White Blood Count 7.71 10^3/uL (3.29-11.43)
[2025-01-23] MEDS: oxytocin 30 UNIT/500 ML BAG IV (17:53)
[2025-01-23 17:58] LABS: Glucose Urine UA Negative (Normal); Nitrate Urine Positive (Negative)
[2025-01-23 18:01] LABS: Add Urine Microscopic? YES
[2025-01-23 18:05] LABS: PCP Screen Urine Negative (Negative)
[2025-01-23 18:09] LABS: Alanine Aminotransferase 7 U/L (0-33); Albumin Level 3.0 g/dL (3.5-5.2); Alkaline Phosphatase 157 U/L (35-105); Anion Gap 15.7 (5-19); Aspartate Amino Transferase 14 U/L (0-32); Blood Urea Nitrogen 7 mg/dL (6-20); Calcium 8.8 mg/dL (8.5-10.5); Carbon Dioxide 18 mmol/L (22-29); Chloride 106 mmol/L (98-107); Creatinine Clr Calc Pharmacy 135.4289; Globulin 2.8 g/dL (1.3-4.6); Glucose 114 mg/dL (65-115); Osmolality Calculated 281 mOsm/kg (285-295); Potassium 3.7 mmol/L (3.5-5.1); Sodium 136 mmol/L (136-145); Total Protein 5.8 g/dL (6.6-8.7); Uric Acid 7.3 mg/dL (2.4-5.7)
[2025-01-23 18:17] LABS: Slide Review Slide Review Perform
[2025-01-23 18:18] LABS: Specific Gravity, Urine 1.043 (1.005-1.030); UA Slide Review UA Slide Review Perf
[2025-01-23 19:56] LABS: UPRO/UCREAT Ratio 5.88 mg/mg CR
[2025-01-23] MEDS: fentaNYL 50 mcg/mL INJ 2mL IVP ×2 (20:00→21:55)
[2025-01-23] MEDS: magnesium sulfate premix 4 GM/100 ML PREMIX IV (21:21)
[2025-01-23] MEDS: magnesium sulfate premix 20 GM/500 ML BAG IV (21:58)
[2025-01-23] MEDS: hyDRALAzine 20 mg/mL INJ 1 mL 10 MG IVP (23:56)
[2025-01-24] VITALS (123 sets, daily range): BP systolic 133–202; BP diastolic 57–130; PULSE 85–137; RESP 16–18; TEMP 36.6–37.1; O2SAT 89–100
[2025-01-24] MEDS: fentaNYL 50 mcg/mL INJ 2mL IVP (00:30)
--- NOTE | 2025-01-24 01:17 | ANES.PREANE2 ---
Pre-Anesthetic Assessment Height/Weight: Height 1.55 m Weight 98.43 kg Temp Pulse Resp BP Pulse Ox O2 Del Method 97.9 F 114 H 18 155/97 98 Room Air 01/24/25 00:15 01/24/25 01:01 01/24/25 00:30 01/24/25 01:01 01/23/25 23:11 01/23/25 17:07 Epidural Familial anesthetic complications: None Was Beta Baron taken within 24 hours: N/A Was Clonidine taken within 24 hours: N/A Last intake: 1729 Social No alcohol and No tobacco Exam alert, oriented x 3, clear to auscultation bilaterally and regular rate & rhythm Airway Submandibular: within normal limits Cervical ROM: within normal limits Mallampati: Class II Dentition: full History/ROS No significant history except as noted and No significant complaints Pulmonary Asthma CV/HEM Hypertension (Gestational) None reported Hepatic None reported GI Gastroesophageal Reflux Disease Metabolic Morbid Obesity Musc/skel Scoliosis Neuropsych Anxiety, Depression and Seizure (Stress induced) Anesthetic Plan ASA status: 3 Anesthesia: Anesthesia Evaluation, General and Regional (specify below) (Epidural) Risk of > 500 ml blood loss (7ml/kg in children): Yes, adequate IV access and fluids planned Medications/Allergies Home Medications ?Medication ?Instructions ?Recorded ?Confirmed ?Last Taken ?Type vitamins with calcium 1 tab PO DAILY #30 tabs 05/31/24 01/23/25 12/26/24 Rx no.72-iron 29 mg-folic acid 1 mg tablet ( Plus) Macrobid 100 mg PO BID 12/27/24 01/23/25 12/26/24 History cranberry 1 tab PO DAILY 12/27/24 01/23/25 12/26/24 History cranberry mgqm-R-dmuiffng coag 450 1 tab PO DAILY 12/27/24 01/23/25 12/26/24 History mg-30 mg-50 million cell tablet (Oegiaicwb-Meavziugg-Jywabbo C) sertraline 50 mg tablet (Zoloft) 50 mg PO DAILY #30 tabs 01/01/25 01/23/25 Unknown Rx Allergies Allergy/AdvReac Type Severity Reaction Status Date / Time Bleach (Sodium Hypochlorite) Allergy Severe ALGY-Redness Verified 01/01/25 15:52 of Skin Current Medications Generic Name Dose Route Start Last Admin Trade Name Freq PRN Reason Stop Dose Admin Fentanyl 25 - 100 mcg 01/23/25 17:14 01/24/25 00:30 Fentanyl 50 Mcg/Ml Inj 2ml IVP 25 mcg Q1H PRN Administration SEVERE PAIN Hydralazine HCl 10 mg 01/23/25 18:35 01/23/25 23:56 Hydralazine 20 Mg/Ml Inj 1 Ml IVP 10 mg PRN PRN Administration HYPERTENSION Protocol Hydroxyzine Pamoate 50 mg 01/23/25 17:14 01/23/25 23:18 Hydroxyzine 25 Mg Capsule PO 50 mg QID PRN Administration sleep, agitation or itching Dextrose/Lactated Ringer's 1,000 mls @ 125 mls/hr 01/23/25 17:15 01/24/25 00:43 Dextrose 5%-Lactated Ringers IV Infused .Q8H NASIR Infusion Lactated Ringer's 1,000 mls @ 999 mls/hr 01/23/25 17:14 01/24/25 00:42 Lactated Ringers IV 999 mls/hr .Q1H1M PRN Administration Per L&D Rescitation Protocol Oxytocin 30 unit in 500 mls @ 1 mls/hr 01/23/25 18:00 01/23/25 17:53 Pitocin IV 2 milliunit/min .Q24H NASIR 2 mls/hr Protocol Administration 1 MILLIUNIT/MIN Magnesium Sulfate 20 gm in 500 mls @ 50 mls/hr 01/23/25 21:00 01/23/25 21:58 Magnesium Sulfate Premix IV 50 mls/hr .Q10H NASIR Administration PFSH Anesthesia Medical History (Updated 01/01/25 @ 17:01 by Rogelio Colmenares MD) Psychiatric care Recurrent loss Obesity (BMI 30-39.9) Recurrent oral ulcers Asthma Scoliosis Surgical History No significant past surgical history Family History Other CAD (coronary artery disease) Cancer Chronic kidney disease (CKD) Diabetes Hypertension Denies family history of Anesthesia complication Stroke Social History Smoking and tobacco/nicotine status: former use of tobacco/nicotine Second hand smoke exposure: No Alcohol intake: unknown Substance/Drug Use: unknown Adopted: No Caregiver/support person: No Lives independently: No Household members: significant other and family Housing: House Marital status: Single Number of children: 1 service: No Current occupational status: unemployed Current occupational exposures/hazards: No Current gender identity: Female Female Reproductive History : 4 Para: 1 Data Anesthesia 01/23/25 17:38 01/23/25 17:38 Short CBC 01/23/25 Range/Units 17:38 WBC 7.71 (3.29-11.43) 10^3/uL Hgb 10.80 L (11.27-16.99) g/dL Hct 32.6 L (36-47) % MCV 85.6 (85-98) fl Plt Count 173 (157-399) 10^3/cmm Neut % (Auto) 56.6 % Neut # (Auto) 4.36 (1.8-7.7) 10^3/uL BMP 01/23/25 17:38 Sodium 136 Potassium 3.7 Chloride 106 Carbon Dioxide 18 L BUN 7 Creatinine 0.7 Glucose 114 Calcium 8.8 Liver Function 01/23/25 Range/Units 17:38 Total Bilirubin 1.0 (0.15-1.2) mg/dL AST 14 (0-32) U/L ALT 7 (0-33) U/L Alkaline Phosphatase 157 H (35-105) U/L Albumin 3.0 L (3.5-5.2) g/dL Urine 01/23/25 Range/Units 17:38 Urine Color [place] A (Yellow) Urine Appearance Cloudy A (CLEAR) Urine pH 5.5 (5-7) Ur Specific [place] 1.043 H (1.005-1.030) Urine Protein 4+ A (Negative) Urine Glucose (UA) Negative (Normal) Urine Ketones Trace (Negative) Urine Nitrate Positive A (Negative) Urine Bilirubin 2+ H (Negative) Ur Leukocyte Esterase 1+ A (Negative) Urine RBC 0-2 (0-2) /hpf Urine WBC 51-100 H (0-5) /hpf Blood Bank 01/23/25 17:38 Blood Type A Positive Rho(D) Type Rh positive Antibody Screen Negative
[2025-01-24] MEDS: ROPivacaine premix 200 MG/100 ML PREMIX 10 MG EPIDURAL (01:43)
--- NOTE | 2025-01-24 01:59 | ANES.PROC ---
Anesthesia Procedures Procedure/Date: 01/24/25 Epidural: Time Out Performed: Yes Consents Signed: Procedure Consent and NPO Consent Consent: requested by attending/covering physician, from patient, risks and benefits reviewed and patient agrees to proceed Lumbar Level: L2-L3 Epidural position: sitting Epidural procedure: sterile prep of area (betadine), 1% lidocaine to numb the area (3 mLs), neg for paresthesia, test dose given, 1.5% xylocaine 1:200k epi (3 mL/2 mL), placed PCEA, no systemic response, sterile dressing applied, L.U.D. no apparent complications and 0.2% Ropiavacaine @ mls/hr (10 mLs/hr) Additional Comments: Attempt x2. DYLAN 7cm, catheter threaded to 12cm. Negative aspiration for blood or csf Patient unable to achieve adequate pain relief. Epidural catheter pulled, tip intact. Dr. England called and placed epidural. DYLAN 6cm, catheter threaded to 12cm. Infusion rate changed to 13mL/hr
[2025-01-24] MEDS: magnesium sulfate premix 20 GM/500 ML BAG IV ×2 (06:43→07:40)
--- NOTE | 2025-01-24 07:42 | PM.OPHPUD ---
Labor & Delivery H&P Update Date of Procedure: January 24, 2025 Date H&P Performed: 01/23/25 Admission Diagnosis: Severe preeclampsia IUP at 39 weeks 4 days gestation Primary indication for procedure: Severe preeclampsia with need for induction and delivery Other information: This is a 24-year-old G4, P0111 at 39 weeks 4 days gestation who presented for routine OB follow-up visit and was found to have severely elevated blood pressures and 4+ protein in her urine. She was sent to labor and delivery for expectant management of labor and delivery.
[2025-01-24 08:24] LABS: Magnesium Level (OB Only) 7.4 mg/dL (5.0-7.5)
--- NOTE | 2025-01-24 12:00 | PM.DELIVERY ---
Delivery Note: Date of delivery: January 24, 2025 Pre-delivery diagnoses: Severe preeclampsia IUP at 39 weeks 5 days gestation Normal spontaneous vaginal delivery Post-delivery diagnoses: Same Estimated blood loss (mL): 200 Pre-Delivery Course: The patient had routine care at [facility]. Her was complicated by history of delivery during prior . This she was referred to [facility], diagnosed with short cervix and received a cerclage. Her cerclage was removed at 37 weeks gestation. labs: Blood type A-, antibody negative, hepatitis B nonreactive, hepatitis C nonreactive, HIV nonreactive, rubella immune, GC chlamydia negative, RPR nonreactive, UDS positive for marijuana, Q low risk, she passed the 3-hour glucose tolerance test,, she was GBS negative. Delivery: This is a 24-year-old -1-2-1 at 39 weeks 5 days gestation who was admitted yesterday from clinic for severe preeclampsia. She was started on magnesium and Pitocin. Patient initially refused Whipple catheter for the magnesium despite warning that it was necessary for monitoring. She was permitted to do hourly bedpan urines. Once her labor began to progress and she decided to get an epidural she did consent to Whipple catheter. When she was completely dilated she had spontaneous rupture of membranes with clear fluid. She had no desire to push so her epidural was turned down and she was allowed to labor down. She had to push for over an hour to have a normal spontaneous vaginal delivery of a viable female weight 2950 g, 6 pounds 8 ounces, Apgars 8 and 9 over an intact perineum. The infant was suctioned at delivery and placed on the mother's chest. After 60 seconds the cord was clamped and cut. The placenta was delivered grossly intact and normal to inspection. There was a first-degree midline laceration that was sutured using 3-0 chromic. Mother and infant were doing well after delivery. History History History 4 Term 0 1 Miscarriages/Ectopic 2 Living Children 1 A&P PDMP PDMP Reviewed: Not Reviewed Coding Level of Care Code Acute Code for Chg Fwd
[2025-01-24] MEDS: oxytocin 30 UNIT/500 ML BAG 600 UNIT IV (12:15)
[2025-01-24] MEDS: hyDRALAzine 20 mg/mL INJ 1 mL 5 MG IVP (12:59)
[2025-01-24] MEDS: hyDRALAzine 20 mg/mL INJ 1 mL 10 MG IVP (13:23)
[2025-01-24] MEDS: hyDRALAzine 20 mg/mL INJ 1 mL IVP (14:06)
[2025-01-24 15:23] LABS: Magnesium Level (OB Only) 8.4 mg/dL (5.0-7.5)
--- NOTE | 2025-01-24 15:52 | PC.NURSE ---
1445 MOVED PATIENT FROM OB 3 TO OB 8 VIA BED. PATIENT MOVED SELF OVER TO OTHER BED BUT TOOK ALOT OF EFFORT, HARD FOR HER TO MOVE.
[2025-01-24] MEDS: labetalol 5 mg/mL SDV 20mL 20 MG IVP (17:01)
--- NOTE | 2025-01-24 18:40 | PC.NURSE ---
PATIENT IS MUCH MORE ALERT AND ABLE TO SPEAK MUCH BETTER WELL. REFLEXES ARE IMPROVING WELL.
[2025-01-24] MEDS: NIFEdipine ER (24 hr) 30 mg Tablet 60 MG PO (20:20)
[2025-01-25] VITALS (7 sets, daily range): BP systolic 119–154; BP diastolic 64–91; PULSE 94–139
[2025-01-25 02:00] LABS: Hematocrit 34.8 % (36-47); Hemoglobin 11.20 g/dL (11.27-16.99); Mean Corpuscular HGB Conc 32.2 g/dL (30-55); Mean Corpuscular Hemoglobin 28.6 pg (27-33); Mean Corpuscular Volume 88.8 fl (85-98); Platelet Count 193 10^3/cmm (157-399); Red Blood Count 3.92 10^6/uL (3.85-5.65); White Blood Count 15.49 10^3/uL (3.29-11.43)
[2025-01-25] MEDS: NIFEdipine ER (24 hr) 30 mg Tablet 60 MG PO (09:16)
[2025-01-25] MEDS: PRENATAL VIT NO.130/IRON/FOLIC 1 EACH TABLET PO (09:16)
--- NOTE | 2025-01-25 12:22 | P.DS_ITS ---
Discharge Providers Date of Admission: 01/23/25 17:51 Date of Discharge: January 25, 2025 Attending Provider at Admission: Herlinda Gibson MD Attending Provider at Discharge: Herlinda Gibson MD Primary Care Provider: NOAH Tripp Diagnoses at Discharge Discharge Diagnosis 1. Normal spontaneous vaginal delivery: Details from hospital stay: Induction secondary to severe preeclampsia 2. Severe pre-eclampsia in third trimester: Details from hospital stay: She is diuresing well but will require oral blood pressure pressure medication and close outpatient follow-up 3. Urinary tract infection: Details from hospital stay: Patient is being discharged home on amoxicillin 4. Short cervix affecting with delivery: Details from hospital stay: Patient had cerclage removed at 37 weeks gestation Reason for Visit Reason for Visit: IOL Hospital Course Hospital Course This is a 24-year-old G4 now P1122 who was admitted for induction at 39 weeks 4 days gestation secondary to severe preeclampsia. Her was complicated by history of delivery around 24 weeks gestation, short cervix this requiring cerclage placement. Her cerclage was removed around 37 weeks gestation. She was started on magnesium for the preeclampsia. She was started on Pitocin for the induction. She did receive an epidural for pain management. She had a normal spontaneous vaginal delivery of a viable female . After delivery the patient became a little bit lethargic with decreased reflexes and urine output. The magnesium was stopped. She improved but required management of severely elevated blood pressures using p.o. Procardia XL 60 mg. Since yesterday evening she has been diuresing well, ambulating and tolerating a regular diet. She states that her bleeding is about average. If she continues to do well throughout the day we will discharge her home later this evening. She will need to continue blood pressure medication. Of note her urine was positive for nitrates upon admission. She will be discharged home on amoxicil familia pending urine culture results. Physical Exam Narrative: Alert and oriented, sitting up in bed eating breakfast and holding the , heart regular rate and rhythm, lungs clear to auscultation bilaterally, abdomen is soft and nontender, fundus is firm, extremities have 2+ edema but no calf tenderness. Urinary Catheter Management: Whipple Latex Free: Cath Placed During This Visit: yes, but has since been removed by the nurse Reason for Continuing Indwelling Catheter: Decision to DC Catheter Urinary Catheter Date of Insertion: 01/24/25 Urinary Catheter Time of Insertion: 12:00 Date Urinary Catheter Removed: 01/25/25 Time Urinary Catheter Discontinued: 05:30 Discharge Data Studies Completed and Pending Pending at discharge Category Date Time Status Urine Culture Stat Lab 01/23/25 17:38 Results Laboratory Results WBC 15.49 10^3/uL (3.29-11.43) H 01/25/25 01:46 RBC 3.92 10^6/uL (3.85-5.65) 01/25/25 01:46 Hgb 11.20 g/dL (11.27-16.99) L 01/25/25 01:46 Hct 34.8 % (36-47) L 01/25/25 01:46 MCV 88.8 fl (85-98) 01/25/25 01:46 MCH 28.6 pg (27-33) 01/25/25 01:46 MCHC 32.2 g/dL (30-55) 01/25/25 01:46 RDW 14.8 % (12.1-15.1) 01/25/25 01:46 Plt Count 193 10^3/cmm (157-399) 01/25/25 01:46 MPV 12.9 fL (7.4-10.4) H 01/25/25 01:46 Neut % (Auto) 56.6 % 01/23/25 17:38 Lymph % (Auto) 33.5 % 01/23/25 17:38 Imperial % (Auto) 8.0 % 01/23/25 17:38 Eos % (Auto) 1.2 % 01/23/25 17:38 Baso % (Auto) 0.6 % 01/23/25 17:38 Neut # (Auto) 4.36 10^3/uL (1.8-7.7) 01/23/25 17:38 Lymph # (Auto) 2.6 10^3/uL (0.8-4.8) 01/23/25 17:38 Imperial # (Auto) 0.6 10^3/uL (0.2-0.9) 01/23/25 17:38 Eos # (Auto) 0.1 10^3/uL (0.0-0.8) 01/23/25 17:38 Baso # (Auto) 0.1 10^3/uL (0.0-0.1) 01/23/25 17:38 Nucleated RBC % (auto) 0 % 01/23/25 17:38 Nucleated RBCs # 0.0 /100WBC 01/23/25 17:38 Sodium 136 mmol/L (136-145) 01/23/25 17:38 Potassium 3.7 mmol/L (3.5-5.1) 01/23/25 17:38 Chloride 106 mmol/L (98-107) 01/23/25 17:38 Carbon Dioxide 18 mmol/L (22-29) L 01/23/25 17:38 Anion Gap 15.7 (5-19) 01/23/25 17:38 BUN 7 mg/dL (6-20) 01/23/25 17:38 Creatinine 0.7 mg/dL (0.5-0.9) 01/23/25 17:38 GFR Calculation 104.6 mL/min (90-130) 01/23/25 17:38 Glucose 114 mg/dL (65-115) 01/23/25 17:38 Calculated Osmolality 281 mOsm/kg (285-295) L 01/23/25 17:38 Uric Acid 7.3 mg/dL (2.4-5.7) H 01/23/25 17:38 Calcium 8.8 mg/dL (8.5-10.5) 01/23/25 17:38 Magnesium 8.4 mg/dL (5.0-7.5) H* 01/24/25 14:45 Total Bilirubin 1.0 mg/dL (0.15-1.2) 01/23/25 17:38 AST 14 U/L (0-32) 01/23/25 17:38 ALT 7 U/L (0-33) 01/23/25 17:38 Alkaline Phosphatase 157 U/L (35-105) H 01/23/25 17:38 Total Protein 5.8 g/dL (6.6-8.7) L 01/23/25 17:38 Albumin 3.0 g/dL (3.5-5.2) L 01/23/25 17:38 Globulin 2.8 g/dL (1.3-4.6) 01/23/25 17:38 Urine Color [place] (Yellow) A 01/23/25 17:38 Urine Appearance Cloudy (CLEAR) A 01/23/25 17:38 Urine pH 5.5 (5-7) 01/23/25 17:38 Ur Specific [place] 1.043 (1.005-1.030) H 01/23/25 17:38 Urine Protein 4+ (Negative) A 01/23/25 17:38 Urine Glucose (UA) Negative (Normal) 01/23/25 17:38 Urine Ketones Trace (Negative) 01/23/25 17:38 Urine Blood Trace (Negative) A 01/23/25 17:38 Urine Nitrate Positive (Negative) A 01/23/25 17:38 Urine Bilirubin 2+ (Negative) H 01/23/25 17:38 Urine Urobilinogen 1.0 mg/dL (Negative) 01/23/25 17:38 Ur Leukocyte Esterase 1+ (Negative) A 01/23/25 17:38 Urine RBC 0-2 /hpf (0-2) 01/23/25 17:38 Urine WBC 51-100 /hpf (0-5) H 01/23/25 17:38 Ur Squamous Epith Cells 11-20 /hpf (0-5) H 01/23/25 17:38 Amorphous Sediment Not Reportable 01/23/25 17:38 Urine Bacteria 2+ /hpf (NONE) H 01/23/25 17:38 Hyaline Casts 117.50 /lpf 01/23/25 17:38 Urine Mucus 3+ /hpf 01/23/25 17:38 U Random Total Protein 3019 mg/dL 01/23/25 17:38 Urine Creatinine 513 mg/dL (28-217) H 01/23/25 17:38 Protein/Creatinin Ratio 5.88 mg/mg CR 01/23/25 17:38 Urine Opiates Screen Negative ng/mL (Negative) 01/23/25 17:38 Ur Barbiturates Screen Negative ng/mL (Negative) 01/23/25 17:38 Ur Phencyclidine Scrn Negative ng/mL (Negative) 01/23/25 17:38 Ur Amphetamines Screen Negative ng/mL (Negative) 01/23/25 17:38 U Benzodiazepines Scrn Negative ng/mL (Negative) 01/23/25 17:38 Urine Cocaine Screen Negative ng/mL (Negative) 01/23/25 17:38 U Marijuana (THC) Screen Negative ng/mL (Negative) 01/23/25 17:38 Blood Type A Positive 01/23/25 17:38 Rho(D) Type Rh positive 01/23/25 17:38 Antibody Screen Negative 01/23/25 17:38 Vitals Last Vital Signs Temp 98.8 F 01/24/25 18:00 Pulse 127 H 01/25/25 10:38 Resp 18 01/24/25 18:00 BP 119/64 01/25/25 10:38 Pulse Ox 100 01/24/25 03:32 O2 Del Method Room Air 01/23/25 17:07 Discharge Plan Discharge Patient Disposition: Home Condition: Stable Prescriptions: New nifedipine 30 mg Tablet Extended Release 24hr 30 mg PO DAILY 14 Days Qty: 14 0RF amoxicillin 875 mg tablet 875 mg PO BID Qty: 14 0RF Continued Plus 29 mg iron- 1 mg tablet 1 tab PO DAILY Qty: 30 5RF sertraline [Zoloft] 50 mg tablet 50 mg PO DAILY Qty: 30 2RF Macrobid 100 mg PO BID cranberry 1 tab PO DAILY Bnjjrqeuz-Aoabszjyn-Kzhsozu C 450-30-50 [id number] Tablet 1 tab PO DAILY Discharge Order = DC NOW: Discharge Order (Routine); Ordered 01/25/25 Ordered By: Herlinda Gibson Referrals: Herlinda Gibson MD [Physician, Family Practice] - 1 week Discharge Diet: Usual diet Discharge Activity: Limit activity as instructed Patient Instructions: Depression (DC), Opioid Safety (DC), Preeclampsia and Eclampsia After Delivery (GEN), Hemorrhage (DC), OB Discharge Report, OB Food/Drug Interaction Guide, OB Care at Home, Opioid Safety, OB Vaginal Deliveries, Patient Portal & Wild Instructions, Abnormal Bleeding Activity Restrictions/Additional Instructions: Nothing per vagina for 6 weeks Discharge Attestations Time Spent in Discharge Care*: greater than 30 min Quality Metrics Clinical Quality Measures [ No reported AMI, CVA or VTE this stay] Coding Level of Care Code Acute Code for Chg Fwd Diagnoses Normal spontaneous vaginal delivery O80 Severe pre-eclampsia in third trimester O14.13 Urinary tract infection N39.0 Short cervix affecting with delivery O26.879
--- NOTE | 2025-01-25 13:41 | PC.NURSE ---
On 01/24/25 this RN pulled ropivicaine 200mg in 100ml bag (see pyxis past removed log) and manually barcoded Mag Sulfate 20gm in 500ml bag by mistake. No Mag Sulfate was pulled until before new bag was administered by Alex Chapa RN on 01/24/25.
== END 2025-01-25 15:50 | disposition home or self-care (01) | DRG 806 ==
LOC: OPOB 17:51 → OBGYN 17:51
PROVIDERS: Admitting Provider Family Medicine; PCP Nurse Practitioner; Visit Provider Family Medicine
DX: O14.14 Severe pre-eclampsia complicating childbirth (principal); N39.0 Urinary tract infection, site not specified; Z37.0 Single live birth; O26.873 Cervical shortening, third trimester; O99.344 Other mental disorders complicating childbirth; F32.A Depression, unspecified; O23.43 Unspecified infection of urinary tract in pregnancy, third trimester; O70.0 First degree perineal laceration during delivery; Z3A.39 39 weeks gestation of pregnancy
CPT/HCPCS: 36415; 51702; 59025; 59409; 80053; 80306; 81001; 82570; 83735; 84156; 84550; 85025; 85027; 86850; 86900; 87086; 99211; J0360; J2590; J2795; J3010; J3475; J3490; J7120; J7121; J9999

== ENCOUNTER 2025-03-25 21:36 | Emergency (ER) | payer SELFPAY ==
--- OUTSIDE RECORDS SUMMARY | 2025-03-25 21:48 | XMS_ITS | Encounter Summary ---
Author Organization [facility] Address [address] [place] [address] Care Team Providers Care Drag Out Worker Name Role Phone Unavailable Primary Care Provider Unavailabl e Encounter Details Date Type Department Care Team ([facility] st Contact Info) Description 11/11/2022 Outside Records [facility] [address] [place] [address] Interface, Provider Social History Tobacco Use Types Packs/Day Years Used Date Smoking Tobacco: Former Cigarettes Smokeless Tobacco: Never Alcohol Use Standard Drinks/Week Comments Not Currently 0 (1 standard drink = 0.6 oz pur e alcohol) CAGE Assessment Answer Date Recorded Alcohol Use 0 11/01/2022 Comments No Sex and Gender Information Value Date Recorded Sex Assigned at Not on file Legal Sex Female 8:38 PM CDT Gender Identity Not on file Sexual Orientation Not on file COVID-19 Exposure Response Date Recorded In the last 10 days, have yo u been in contact with someone who was confirmed or suspected to have Coronavirus/COVID-19? No / Unsure 10/31/2022 9:54 PM CDT documented as of this encounter Plan of Treatment Not on file documented as of this encounter Visit Diagnoses Not on filedocumented in this encounter
--- OUTSIDE RECORDS SUMMARY | 2025-03-25 21:48 | XMS_ITS | Encounter Summary ---
Author Organization [facility] Address [address] 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 Role Phone Unavailable Primary Care Provider Unavailabl e Encounter Details Date Type Department Care Team ([facility] st Contact Info) Description 11/03/2022 Outside Records [facility] [address] [place] [address] Interface, Provider Social History Tobacco Use Types Packs/Day Years Used Date Smoking Tobacco: Former Cigarettes Smokeless Tobacco: Never Alcohol Use Standard Drinks/Week Comments Not Currently 0 (1 standard drink = 0.6 oz pur e alcohol) CAGE Assessment Answer Date Recorded Alcohol Use 0 11/01/2022 Comments Yes Sex and Gender Information Value Date Recorded [...]
--- OUTSIDE RECORDS SUMMARY | 2025-03-25 21:48 | XMS_ITS | Clinical Summary ---
Author Organization [facility] Address [address] [place] [id number] Care Team Providers Care Manager Shift Name Role Phone Unavailable Primary Care Provider Unavailabl e Allergies No known active allergies Medications acetaminophen (TYLENOL) 325 MG tablet Take two tablets (650 mg total) by mouth every 6 (six) hours. 60 tablet 11/09/2022 8:42 AM CDT 3 Active ibuprofen (ADVIL) 600 MG tablet Take one tablet (600 mg total) by mouth every 6 (six) hours as needed. 60 tablet 11/09/2022 8:42 AM CDT 3 Active polyethylene glycol (MIRALAX) 17 gram/dose powder Take 17 grams (1 capful) dissolved in water or juice once daily as directed. 510 g 11/09/2022 8:42 AM CDT 3 Active drospirenone, contraceptive, (SLYND) 4 mg (28) Tab Take one tablet (4 mg) by mouth daily. 28 tablet 4 11/09/2022 8:42 AM CDT 3 Active ondansetron (ZOFRAN-ODT) 4 MG disint tab Dissolve one tablet (4 mg total) on tongue every 8 (eight) hours as needed for nausea. 28 tablets 3 Active methocarbamol (ROBAXIN) 750 MG tablet Take one tablet (750 mg total) by mouth 4 (four) times a day. Active Active Problems Problem Noted Date Diagnosed Date breast pain 11/25/2022 anxiety 11/20/2022 Overview (11/20/2022): 11/20: started on zoloft 25mg PO, [facility] referral placed; to follow up in 1 week. If having difficulty transporting to [facility] appointment, she is to follow up in triage. Discussed warning signs of worsening anxiety/maricruz/depression after starting SSRIs--she understands she needs close follow up after beginning Rx History of anxiety 11/20/2022 Supervision of high risk in second tri mester 11/08/2022 labor in second trim shraddha with delivery in second trimester 11/08/2022 premature rupture of membranes (PPROM) with unknown onset of labor 11/02/2022 Social History Tobacco Use Types Packs/Day Years [...] on file Sexual Orientation Not on file Last Filed Vital Signs Vital Sign Reading Time Taken Comments Blood Pressure 125/74 12/10/2022 8:56 PM CDT Pulse 82 12/10/2022 8:56 PM CDT Temperature 37.1 C (98.7 F) 12/10/2022 8:56 PM CDT Respiratory Rate 20 12/10/2022 8:56 PM CDT Oxygen Saturation 100% 12/10/2022 8:56 PM CDT Inhaled Oxygen Concentration - - Weight 83.5 kg (184 lb) 11/01/2022 5:00 AM CDT Height 154.9 cm (5' 1 ) 11/01/2022 5:00 AM CDT Body Mass Index 34.77 11/01/2022 5:00 AM CDT Plan of Treatment Health Maintenance Due Date Last Done Comments Anxiety Screening 2010 Meningococcal B Vaccine (1 o f 2 - Standard) 2018 Depression Screening 02/12/2020 Hepatitis B Vaccine (1 of 3 - 19+ 3-dose series) 2021 Cervical Cancer Screening (21-29) 2023 Pap Smear 2023 COVID-19 Vaccine (2023-2 5 season) 2025 Influenza Series (#1) 2025 02/13/2020 TDAP/DTaP/TD Vaccines (7 - T d or Tdap) 12/22/2026 12/22/2016, 03/24/2006, 05/14/2003, Additional history exists Pneumococcal Vaccine 0-50 years Completed 03/15/2003, 2002, 2002, Additional history exists HPV Vaccines Completed 12/12/2019, 02/21, 12/22/2016 G/C Screening Completed 11/01/2022, 11/01/2022 HIV Screening Completed 11/01/2022 Hepatitis C Screening Completed 11/01/2022 Procedures Procedure Name Priority Date/Time Associated Diagnosis Comments CT DNA DETECTION BY PCR, QUALITATIVE Routine 11/01/2022 1:43 AM CDT HEPATITIS C ANTIBODY Routine 11/01/2022 1:24 AM CDT HIV-1/2 ANTIBODIES AND HIV-1 P24 ANTIGEN SCREENING Routine 11/01/2022 1:24 AM CDT from Last 3 Months or Most Recently Relevant to Health Maintenance Results * CT DNA Detection by PCR, Qualitative (11/01/2022 1:43 AM CDT) C. trachomitis by PCR Negative Negative, Indeterminate ARAM SARS-COV-2 TEST_[employer] (MELVINA)_EUA 11/03/2022 5:59 PM CDT [facility] Other URINE / Unknown 11/01/2022 1 :43 AM CDT 11/01/2022 1:43 AM CDT [facility] - 11/03/2022 5:59 PM CDT This test is an automated, in vitro nucleic acid amplification test for the qualitative detection of Chlamydia trachomatis (CT) DNA in urogenital specimens. The test utilizes the polymerase chain reaction (PCR) for the detection of CT DNA in urine, vaginal or endocervical swab specimens collected in [employer]asTM PCR Media ([employer] and cervical specimens collected in PreservCytTM solution. This test is intended as an aid in the diagnosis of chlamydial disease in both symptomatic and asymptomatic individuals. This test is not intended to replace other exams or tests for diagnosis of urogenital infection. A negative result in this test does not exclude the possibility of a Chlamydia trachomatis (CT), since very low levels of infection may cause a false-negative result. Although rare, mutations within the highly conserved regions of C. trachomatis DNA covered by this test's primers and/or probes may result in failure to detect the presence of the bacterium. This test has been cleared by the U.S. Food and Drug Administration for in vitro diagnostic use and its performance characteristics have been determined by the [facility] Department of Pathology and Laboratory Services which is a CLIA certified laboratory. us Ynes Ortega MD BODY FLUIDS AND STOOLS ORDERABL ES Final Result Performing Organization Address [facility] de Phone Number [facility] [address] [place] [address], * HIV1/2 Antibodies and HIV-1 P24 Antigen Screening (11/01/2022 1:24 AM CDT) [facility] HIV I&II antibodies and HIV I P24 antigen Screening Non-Reacti ve Non-React kojo 11/01/2022 2:32 AM CDT [facility] Serum 11/01/2022 1:24 AM CDT 11/01/2022 1:44 AM CDT Narrative [facility] - 11/01/2022 2:32 AM CDT This assay does not distinguish HIV-1 p24 antigen, antibodies to HIV-1 (group M and group O), and antibodies to HIV-2. This result was obtained using the [employer] immunoassay method, FDA- approved for clinical diagnostic use. This assay should not be used for the screening of sera for the evaluation of potential cell, tissue and blood donors. us Ynes Ortega MD LAB BLOOD ORDERABLES Final Resu lt Performing Organization Address [facility] de Phone Number [facility] [address] [place] [address], * Hepatitis C Virus Antibody (11/01/2022 1:24 AM CDT) Hepatitis C Virus Ab Non-reacti ve Non-reacti ve 11/01/2022 2:32 AM CDT [facility] Serum 11/01/2022 1:24 AM CDT 11/01/2022 1:44 AM CDT Narrative [facility] - 11/01/2022 2:32 AM CDT This result was obtained using the [employer] immunoassay method, FDA- approved for clinical diagnostic use. This assay should not be used for the screening of sera for the evaluation of potential cell, tissue, and blood donors. us Ynes Ortega MD LAB BLOOD ORDERABLES Final Resu lt [facility] [address] [place] [address], from Last 3 Months or Most Recently Relevant to Health Maintenance Insurance [facility] Advance Directives * Full Code (Latest Code Status on File) Date Activated Date Inactivated Comments 12/10/2022 9:26 PM 12/11/2022 8:53 AM * Full Code Date Activated Date Inactivated Comments 11/08/2022 9:09 PM 11/09/2022 10:04 PM * Full Code Date Activated Date Inactivated Comments 11/02/2022 3:55 AM 11/08/2022 8:43 AM * Full Code Date Activated Date Inactivated Comments 11/01/2022 12:31 AM 11/01/2022 7:10 PM
--- OUTSIDE RECORDS SUMMARY | 2025-03-25 21:48 | XMS_ITS | Data Portability ---
Author Organization [facility] Rashad Handley [facility], [place], [facility] Address [address] [address] Assessment Encounter Date Assessment Date Assessment LastModified by Organization Details LastModified Time 02/20/2025 02/20/2025 25-year-old femron cadet with a history of essential hypertension presenting with migraine headaches appearing to be medication-induced . The headaches have worsened in frequency and intensity since the dosage of her hypertension medication was increased. They interfere significantly with sleep and daily activities due to photophobia and ocular pain. Management considerations include changing her current antihypertensive medication to reduce the side effect of migraines. [email or web address] Not available 02/20/2025 17:03:30 Plan of Treatment Reminders Order Date Submit Date Provider Last Modified By Organization Details Last Modified Time Details Appointments None recorded. Lab None recorded. Referral None recorded. Procedures None recorded. Surgeries None recorded. Imaging None recorded. Medication Orders lisinopril 20 mg-hydrochl orothiazide 25 mg tablet 2024 025 [facility] (formerly [facility]3] Drug [facility], [address], [place], [address], 17:47:49 propranolol ER 60 mg capsule,24 hr,extended release 2024 025 [facility] ([facility]3] iPerceptions [facility], [address], [place], [address], 17:02:45 nifedipine ER 60 mg tablet,exte nded release 24 hr 2024 025 [facility], [address], [place], [address], 16:27:16 Tri-Sprinte c (28) 0.18 mg(7)/0.215 mg(7)/0.25 mg(7)-0.035 mg tablet 2024 025 [facility], [address], [place], [address], 16:24:58 Patient TargetsNo targets recorded. Patient Instructions Encounter Date Encounter Id Patient Instructions Last Modified By Organization Details Last Modified Time 02/20/2025 [id number] - Stop taking nifedipine. - Start taking lisinopril hydrochlorothiazide as prescribed for blood pressure. - Begin propranolol for headache prevention. - Monitor for any side effects and report them. - Follow up in two weeks to reassess condition and medication response. - Seek medical attention if experiencing severe adverse effects. [email or web address] Not available 02/20/2025 16:47:14 I discussed with the patient the likelihood of her migraines being a side effect of the current antihypertensive medication (nifedipine). We reviewed alternative management options to both address her hypertension and reduce her migraine episodes. I explained the benefits and potential side effects of switching from nifedipine to a regimen including lisinopril hydrochlorothiazide and propranolol, highlighting that propranolol might reduce headache frequency. We also discussed monitoring her response to new medications and scheduled her follow-up in two weeks. [email or web address] Not available 02/20/2025 16:47:15 Reason for Referral None Reported. Results Created Date Observation Date Name Description Value Unit Range Abnormal Flag Note LastModifiedBy Organization Detail LastModifiedTime 12/22/1912/24/2024 STREP TOCOC CUS, GROUP B CULTU RE streptococcu s, group B culture SEE NOTE STREP TOCOC CUS, GROUP B CULTU RE Micro Numbe r: [id number] Test Statu s: Final Speci men Sourc e: Vagin al/an orect al Speci men Quali ty: Adequ ate Resul t: No group B Strep tococ cus isola monica Note per CDC guide lines optim al recov josh is achie kvng by swabb ing both the lower vagin a and rectu m (thro ugh the anal sphin cter) . Not Available [facility] [address] [address] [place], [address], 12/24/2024 10:01:27 12/29/19 25 12/29/2024 SURES WAB(R ) ADVAN SABRINA VAGIN ITIS PLUS, TMA sureswab(R) adv bacterial vaginosis (bv), tma POSITI VE negati ve abnormal Not Available [facility] [address] [address] [place], [address], 12/29/2024 14:05:19 12/29/19 25 12/29/2024 SURES WAB(R ) ADVAN SABRINA VAGIN ITIS PLUS, TMA nile species NOT DETECT ED not detect ed normal Not Available [facility] [address], [address], 12/29/2024 14:05:19 12/29/19 25 12/29/2024 SURES WAB(R ) ADVAN SABRINA VAGIN ITIS PLUS, TMA nile glabrata NOT DETECT ED not detect ed normal Jenny da speci es C. albic ans, C. tropi calis , C. parap asya is, and/o r C. dubli niens is can be detec monica, but not diffe renti ated, in the Jenny da spp. resul t. Not Available [facility] [address] [address] [place], [address], 12/29/2024 14:05:19 12/29/19 25 12/29/2024 SURES WAB(R ) ADVAN SABRINA VAGIN ITIS PLUS, TMA trichomonas vaginalis (TV), tma NOT DETECT ED not detect ed normal Not Available [facility] [address] [address] [place], [address], 12/29/2024 14:05:19 12/29/19 25 12/29/2024 SURES WAB(R ) ADVAN SABRINA VAGIN ITIS PLUS, TMA chlamydia trachomatis RNA, tma, urogenital NOT DETECT ED not detect ed normal Not Available [facility] [address] [place], [address], 12/29/2024 14:05:19 12/29/19 25 12/29/2024 SUREJonah TRINITY(R ) ADVAN SABRINA VAGIN ITIS PLUS, TMA neisseria gonorrhoeae RNA, tma, urogenital NOT DETECT ED not detect ed normal For addit ional infor tim florian refer to https ://ed ucati on.qu estdi [facility]. OBOOK/f aq/FA Q154 (This link is being provi ded for infor nikunj arteaga/ hillary chang purpo ses only. ) Not Available [facility] [address] [address] , [place], [address], 12/29/2024 14:05:19 01/11/20 25 01/10/2025 US, obste tric, mater nal evalu ation + anato my No observ ation record ed. [email or web address] [facility]) [address] [facility], [place], [address], 01/23/2025 15:49:18 Result Notes None recorded. Problems Name Problem SNOMED Code Status Onset Date Resolution Date Notes Provider Name and Address Organization Details Recorded Time Past pregnanc y history of prematur e delivery 609865288 Completed 24w2d. pt states labor and short cervix. ...pt will need MFM referral 06/22/2024 KORY valadez [facility] 5 15:40:17 Past pregnanc y history of prematur e delivery 556704835 Active 24w2d. pt states labor and short cervix. ...pt will need MFM referral 06/22/2024 KORY valadez [facility] 5 15:40:16 High risk pregnanc y 57600459 Completed KORY valadez [facility] 5 15:40:09 High risk pregnanc y 51535911 Active [facility] 15:40:09 Cerclage 2294632 Completed MFM on 08/24 [facility] 11:15:06 Cerclage 4651039 Active MFM on 08/24 [facility] 11:15:06 Pregnanc y 25159239 Completed 202402/05/2025 [facility] 15:49:37 Seizure 85691447 Active 2024 ANITHA VASQUEZ [facility] 14:12:16 Cervical cerclage suture present 99551223 Completed 2024 MFM following . (pt had shortenin g cervix with hx of 24wk delivery) Herlinda Gibson MD [address] [place] [address], [address] , [facility] 5 14:05:35 Cervical incompet ence 01017393 Active [address] Discomfor t is probably related to this. KORY BEATTY [facility] 11:15:19 Cervical incompet ence 30408056 Completed [address] Discomfor t is probably related to this. KORY BEATTY [facility] 11:15:20 [facility] an am 93515248 Active 2024 ANITHA VASQUEZ [facility], [facility] 16:29:27 Problem Notes None recorded. Procedures Surgical History Date Name Laterality Status Provider Name and Address Organization Details Recorded Time 07/20/19 25 Date of Last Pap Smear [facility]24 15:14:47 07/20/19 sampling of cervix for Papanicolaou smear completed [facility]/16[facility]2024 14:42:52 Imaging Results None recorded. Procedure Notes None recorded. Medical Equipment None Reported. Allergies No known drug allergies Medications Name Sig Start Date Stop Date Status Note LastModified by Organization Details LastModified Time nifedipine ER 30 mg tablet,exte nded release 24 hr TAKE 1 TABLET BY MOUTH ONCE DAILY FOR 14 DAYS 02/05 completed Not Available Not Available Not Available hydrocodone 5 mg-acetamin ophen 325 mg tablet TAKE 1 TABLET BY MOUTH EVERY 8 HOURS NEEDED FOR PAIN 10/02 completed Not Available Not Available Not Available propranolol ER 60 mg capsule,24 hr,extended release TAKE ONE CAPSULE BY MOUTH EVERY DAY active Not Available Not Available No t Available metronidazo le 500 mg tablet Take 1 tablet twice a day by oral route for 7 days. 01/23 completed Not Available Not Available Not Available amoxicillin 875 mg tablet TAKE 1 TABLET BY MOUTH TWICE DAILY FOR URINARY INFECTION 02/05 completed Not Available Not Available Not Available nifedipine ER 60 mg tablet,exte nded release 24 hr TAKE 1 TABLET BY MOUTH ONCE DAILY FOR 30 DAYS active Not Available Not Available No t Available lisinopril 20 mg-hydrochl orothiazide 25 mg tablet TAKE ONE TABLET BY MOUTH EVERY DAY active Not Available Not Available No t Available hydroxyzine HCl 25 mg tablet TAKE 1 TO 2 TABLETS BY MOUTH EVERY NIGHT AT BEDTIME NEEDED FOR INSOMNIA 01/04 completed Not Available Not Available Not Available cefdinir 300 mg capsule TAKE 1 CAPSULE BY MOUTH TWICE DAILY 10/02 completed Not Available Not Available Not Available sertraline 50 mg tablet TAKE 1 TABLET BY MOUTH ONCE DAILY 02/05 completed Not Available Not Available Not Available metoclopram tenzin 10 mg tablet TAKE ONE TABLET BY MOUTH EVERY 6 HOURS NEEDED FOR NAUSEA AND VOMITING 07/20 completed Not Available Not Available Not Available Tri-Sprinte c (28) 0.18 mg(7)/0.215 mg(7)/0.25 mg(7)-0.035 mg tablet TAKE 1 TABLET BY MOUTH ONCE DAILY active Not Available Not Available No t Available nitrofurant oin monohydrate /macrocryst als 100 mg capsule TAKE ONE CAPSULE BY MOUTH TWICE DAILY FOR SEVEN DAYS 12/28 completed Not Available Not Available Not Available 02/20 completed Not Available Not Available Not Available WesTab Plus 27 mg iron-1 mg tablet TAKE ONE TABLET BY MOUTH DAILY 02/20 completed Not Available Not Available Not Available Vitals Date Recorded Body height Body mass index (BMI) Body weight Body temperature Oxygen saturation Oxygen saturation in Arterial blood by Pulse oximetry Heart rate Systolic And Diastolic Provider Name and Address Organization Details Last Updated DateTime 5 154.94 cm 39.3 kg/m2 09176.2 1 g 98.4 [degF] 97 % 97 % 89 /min 130/80 mm[Hg] [facility] 11:34:48 Date Recorded Body height Body mass index (BMI) Body weight Body temperature Oxygen saturation Oxygen saturation in Arterial blood by Pulse oximetry Heart rate Systolic And Diastolic Provider Name and Address Organization Details Last Updated DateTime 5 154.94 cm 40.6 kg/m2 59783.3 6 g 98.2 [degF] 98 % 98 % 105 /min 148/80 mm[Hg] ANITHA VASQUEZ [facility] 5 12:10:35 Date Recorded Body height Body temperature Oxygen saturation Oxygen saturation in Arterial blood by Pulse oximetry Heart rate Body mass index (BMI) Body weight Systolic And Diastolic Systolic And Diastolic Provider Name and Address Organization Details Last Updated DateTime 5 154.94 cm 97.8 [degF] 98 % 98 % 98 /min 41.6 kg/m2 39252.3 2 g 160/92 mm[Hg] 148/100 mm[Hg] KORY BEATTY [facility] 5 17:06:28 Date Recorded Body height Body mass index (BMI) Body weight Body temperature Oxygen saturation Oxygen saturation in Arterial blood by Pulse oximetry Heart rate Systolic And Diastolic Systolic And Diastolic Provider Name and Address Organization Details Last Updated DateTime 5 154.94 cm 35 kg/m2 28331.5 9 g 97.8 [degF] 98 % 98 % 102 /min 150/86 mm[Hg] 160/74 mm[Hg] KORY BEATTY [facility] 5 16:13:02 Date Recorded Body height Body mass index (BMI) Body weight Body temperature Oxygen saturation Oxygen saturation in Arterial blood by Pulse oximetry Heart rate Systolic And Diastolic Provider Name and Address Organization Details Last Updated DateTime 5 154.94 cm 35.5 kg/m2 93099.3 7 g 97.9 [degF] 98 % 98 % 77 /min 120/78 mm[Hg] ANITHA PETITH PEDRO [facility] 5 16:27:12 Social History Question Answer Notes LastModified by Organizat ion Details LastModified Time Tobacco Smoking Status Never Smoker ANITHA PETITH PEDRO [facility] 06/20/2024 14:15:19 What Was The Date Of Your Most Recent Tobacco Screening? 12/28/2024 [email or web address] Information not available 12/28/2024 Sex: Unknown Functional Status None recorded. Mental Status None recorded. Family History Relationship Description Onset Age of this Age Resolved Age Notes LastModified by Organization Details LastModified Time Mother Seizure disorder [email or web address] Not available 05/25 14:14:30 Maternal Grandfather Heart disease Not available 05/25 14:14:45 Maternal Grandfather Hypertensive disorder [email or web address] Not available 05/25 14:15:00 Medical History Condition Response Coronary Artery Disease N Other N Gout N Kidney Stones N Blood Diseases N Hyperthyroidism N Breast Cancer N Blood Transfusion N Hypothyroidism N Depression N COPD N Lung Disease N Defects or Inherited Disease N Developmental or Behavioral Disorders N Breast Problem N Difficulty Swallowing N Anesthesia Complications N Anxiety Disorder N Meniere's disease N Muscle, Joint, or Bone Problems N Vision or Eye Problems N Arthritis N Polyps N Infertility N Cancer N Varicosities N Stroke N Endometriosis N Bladder or Kidney Problems N High Cholesterol N Liver Disease N Headaches N Fibromyalgia N Kidney Disease N Allergies/Hayfever N Heart Problems N Ear or Hearing Problems N Hospitalizations N Thyroid Problems N GI Problems N ADD/ADHD N Skin Problems N Eating Disorder N Anemia N Constipation N Mental Illness N Ovarian Cancer N Diabetes N Bedwetting N Seizures/Epilepsy Y Tuberculosis N Eczema N Diverticulitis N Abuse/Domestic Violence N Asthma N Reflux/GERD N Hepatitis N Heart Disease N Pulmonary Embolism N Chronic Ear Infections N Pre-Eclampsia N Hypertension Y Chicken Pox N Autism Spectrum Disorder (ASD) N Osteoporosis N Thrombophilias N Gynecological History Statement/Question Response Date of Last Pap Smear 07/20/2024 Obstetrics History GPAL:G 4 P 1 1 2 2 Type Value Full Term 1 Spontaneous 2 Premature 1 Living 2 Total 4 Immunizations Vaccine Type Date Status Note Provider Nam e and Address Organization Details Recorded Time Hep B, adolescent or pediatric 2 completed Not Available [facility] 02/20/2025 16:23:30 Hep B, adolescent or pediatric 2 completed Not Available [facility] 02/20/2025 16:23:30 DTaP 2 completed Not Available [facility] 02/20/2025 16:23:30 Hib, unspecified formulation 2 completed Not Available [facility] 02/20/2025 16:23:30 IPV 2 completed Not Available [facility] 02/20/2025 16:23:30 Pneumococcal conjugate PCV 13 2 completed Not Available [facility] 02/20/2025 16:23:30 DTaP 3 completed Not Available [facility] 02/20/2025 16:23:30 Hib, unspecified formulation 3 completed Not Available [facility] 02/20/2025 16:23:30 IPV 3 completed Not Available [facility] 02/20/2025 16:23:30 Pneumococcal conjugate PCV 13 3 completed Not Available [facility] 02/20/2025 16:23:30 Hep B, adolescent or pediatric 3 completed Not Available [facility] 02/20/2025 16:23:30 DTaP 3 completed Not Available [facility] 02/20/2025 16:23:30 Pneumococcal conjugate PCV 13 3 completed Not Available [facility] 02/20/2025 16:23:30 Pneumococcal conjugate PCV 13 3 completed Not Available [facility] 02/20/2025 16:23:30 MMR 3 completed Not Available [facility] 02/20/2025 16:23:30 DTaP 3 completed Not Available [facility] 02/20/2025 16:23:30 Hib, unspecified formulation 3 completed Not Available [facility] 02/20/2025 16:23:30 IPV 3 completed Not Available [facility] 02/20/2025 16:23:30 varicella 3 completed Not Available [facility] 02/20/2025 16:23:30 Hep A, ped/adol, 2 dose 4 completed Not Available [facility] 02/20/2025 16:23:30 DTaP 6 completed Not Available [facility] 02/20/2025 16:23:30 IPV 6 completed Not Available [facility] 02/20/2025 16:23:30 MMR 6 completed Not Available [facility] 02/20/2025 16:23:30 varicella 6 completed Not Available [facility] 02/20/2025 16:23:30 Hib, unspecified formulation 8 completed Not Available [facility] 02/20/2025 16:23:30 Hep A, ped/adol, 2 dose 8 completed Not Available [facility] 02/20/2025 16:23:30 Tdap 7 completed Not Available [facility] 02/20/2025 16:23:30 meningococcal MCV4P 7 completed Not Available [facility] 02/20/2025 16:23:30 HPV9 7 completed Not Available [facility] 02/20/2025 16:23:30 HPV9 7 completed Not Available [facility] 02/20/2025 16:23:30 Meningococcal MCV4O 0 completed Not Available [facility] 02/20/2025 16:23:30 HPV9 0 completed Not Available [facility] 02/20/2025 16:23:30 Influenza, split virus, quadrivalent, PF 0 completed Not Available [facility] 02/20/2025 16:23:30 RSV, bivalent, protein subunit RSVpreF, diluent reconstituted, 0.5 mL, PF 5 completed Not Available [facility] 02/20/2025 16:23:30 Tdap 5 completed Not Available [facility] 02/20/2025 16:23:30 Past Encounters Encounter ID Performer Location Encounter Start Date Encounter Closed Date Diagnosis/Indication Diagnosis SNOMED-CT Code Diagnosis ICD10 Code Diagnosis IMO Codes Diagnosis Note [id number] Herlinda Gibson MD [facility] ([facility]) [address] [place] [phone] 06/20/2024 13:49:06 06/23/2024 07:00:58 Past history of premature delivery 985597919 Z87.51 24w2d. pt states labor and short cervix. ...pt will need MFM referral 06/22/2024 Gestation period, 9 weeks 404091 Z3A.09 records request [facility] ER visit - had u/s there placing her around 6 weeks on 06/03/24. We will need her ultrasound to verify her ZOE 06/22/2024 Obesity 894466189 E66.9 Will need early glucose tolerance test 06/22/2024 [id number] Herlinda Gibson MD [facility] ([facility]) [address] [place] [phone] 5 07/20/2024 15:05:03 07/21/2024 10:36:27 Gestation period, 14 weeks 37091041 Z3A.14 High risk 4720 0007 O09.92 Past pregn yisel history of premature delivery 881220157 Z87.51 24w2d. pt states labor and short cervix. ...pt will need MFM referral 06/22/2024 we got records from 2022 not 2024.... nursing just called [facility] to get 2024 records of her ER visit/ultr asound for this . we will check cervical length and refer to MFM today. 07/20/24 u/s from 06/03/24 gives ZOE 01/26/25 by CRL 6w1d. CL 3.2 cm. 07/20/24 Obesity 000041304 E66.9 Will need early glucose tolerance test 06/22/2024 pt sent to lab for gtt. 07/20/24 Cervical incompetence 17 319657 O34.32 pt report prior hx of cervical incompeten ce with PTD. [id number] Herlinda Gibson MD [facility] ([facility]) [address] [place] [phone] 5 08/16/2024 14:36:34 08/17/2024 11:12:45 Gestation period, 17 weeks 26401106 Z3A.17 Normal pre gnancy in multigravida 1920626721 25861 Z34.82 High risk 4720 0007 O09.92 la bor with delivery 5228824419 9125478 O60.10X0 pt has appt w MFM tomorrow. she was advised to keep her appts here to follow locally. 08/16/24 [id number] Herlinda Gibson MD [facility] ([facility]) [address] [place] [phone] 5 08/16/2024 14:07:55 08/17/2024 11:11:51 [id number] Herlinda Gibson MD [facility] ([facility]) [address] [place] [phone] 5 10/02/2024 10:40:29 10/02/2024 13:05:12 Gestation period, 23 weeks 88917899 Z3A.23 7657612 Multigravida 680170977 Z 34.82 68769792 Cervical c erclage suture present 33155325 O34.32 15408877 MFM following. (pt had shortening cervix with hx of 24wk delivery) High risk 4720 0007 O09.92 47471016 Marijuana user 908879573 F12.90 0012968 I discussed with the patient the risks of using marijuana in and I advised cessation. I advised she try other medication s for her insomnia. She is willing to try the hydroxyzin e which was sent to the pharmacy today 10/02/2024 Chronic insomnia 6189519 04 F51.04 939265 I discussed with the patient that Unisom is typically the safest to try in . We will prescribe hydroxyzin e. 10/02/2024 [id number] Larry Rowell MD [facility] ([facility]) [address] [place] [phone] 5 11/03/2024 12:52:33 11/06/2024 08:09:31 High risk 17622132 O09.92 No specific concerns noted on exam today. Anticipato ry guidance provided Cervical incompetence 17 310595 O34.[address]. Discomfort is probably related to this. [id number] Herlinda Gibson MD [facility] ([facility]) [address] [place] [phone] 5 11/16/2024 12:41:57 11/21/2024 15:07:06 High risk 11134321 O09.92 Gestation period, 29 weeks 16726278 Z3A.29 6224657 Due to her high risk of possible delivery when the patient presented yesterday with contractio ns and lower abdominal pain she was given betamethas one. She is to report to labor and delivery today for her second dose of betamethas one. 11/16/2024 Multigravida 334394918 Z 34.83 42015460 Past pregn yisel history of premature delivery 755588270 Z87.51 24w2d. pt states labor and short cervix. ...pt will need MFM referral 06/22/2024 we got records from 2022 not 2024.... nursing just called [facility] to get 2024 records of her ER visit/ultr asound for this . we will check cervical length and refer to MFM today. 07/20/24 u/s from 06/03/24 gives ZOE 01/26/25 by CRL 6w1d. CL 3.2 cm. 07/20/24 Cervical c erclage suture present 57511929 O34.33 16381240 MF following. (pt had shortening cervix with hx of 24wk delivery). The patient was in triage yesterday and had an ultrasound which confirmed cervix and cerclage appeared the same compared to prior. 11/16/2024 Low back pain 009769710 M54.59 1378387949 No specific CVA tenderness , patient's entire thoracic and lumbar back is essentiall y tender to palpation. Suspect musculoske letal. 11/16/2024 Urinary symptoms 7963873 08 R39.9 [id number] Patient was started on Rocephin yesterday at labor and delivery. We will be sending her there again today to rule out contractio ns. She can get her second dose at that time. 11/16/2024 RhD negative 125679843 O 26.899 Z67.91 [id number] Patient was due to get RhoGAM at the hospital. I will need to check and see if she did indeed get this on labor and delivery. 11/16/2024 [id number] Herlinda Gibson MD [facility] ([facility]) [address] [place] [phone] 5 12/04/2024 10:58:25 12/04/2024 13:07:12 Gestation period, 32 weeks 1017441 Z3A.32 3676570 RhD negative 437975275 O 26.899 Z67.91 [id number] Patient was due to get RhoGAM at the hospital. I will need to check and see if she did indeed get this on labor and delivery. 11/16/2024 High risk 4720 0007 O09.92 Multigravida 874980876 Z 34.83 67054419 Cervical c erclage suture present 62384717 O34.33 59972990 MFM following. (pt had shortening cervix with hx of 24wk delivery). The patient was in triage yesterday and had an ultrasound which confirmed cervix and cerclage appeared the same compared to prior. 11/16/2024 Past pregn yisel history of premature delivery 802147652 Z87.51 24w2d. pt states labor and short cervix. ...pt will need MFM referral 06/22/2024 we got records from 2022 not 2024.... nursing just called [facility] to get 2024 records of her ER visit/ultr asound for this . we will check cervical length and refer to MFM today. 07/20/24 u/s from 06/03/24 gives ZOE 01/26/25 by CRL 6w1d. CL 3.2 cm. 07/20/24 [id number] Herlinda Gibson MD [facility] ([facility]) [address] [place] [address] 12/21/2024 11:41:46 12/22/2024 11:26:54 RhD negative 325310178 O26.899 Z67.91 [id number] Patient was due to get RhoGAM at the hospital. I will need to check and see if she did indeed get this on labor and delivery. 11/16/2024 High risk 4720 0007 O09.92 Multigravida 525808464 Z 34.83 [id number] Cervical c erclage suture present 54203685 O34.33 [id number] MFM following. (pt had shortening cervix with hx of 24wk delivery). The patient was in triage yesterday and had an ultrasound which confirmed cervix and cerclage appeared the same compared to prior. 11/16/2024 Past pregn yisel history of premature delivery 118659138 Z87.51 24w2d. pt states labor and short cervix. ...pt will need MFM referral 06/22/2024 we got records from 2022 not 2024.... nursing just called [facility] to get 2024 records of her ER visit/ultr asound for this . we will check cervical length and refer to MFM today. 07/20/24 u/s from 06/03/24 gives ZOE 01/26/25 by CRL 6w1d. CL 3.2 cm. 07/20/24 Gestation period, 34 weeks 72839032 Z3A.34 [id number] we will do her GBS since 01/10 she is supposed to have cerclage taken out - results will be back by then. [id number] Herlinda Gibson MD [facility] ([facility]) [address] [place] [phone] 12/28/2024 15:01:47 01/08/2025 11:18:44 Gestation period, 35 weeks 39801090 Z3A.35 1865414 Multigravida 826087473 Z 34.83 63681290 RhD negative 821082367 O 26.899 Z67.91 [id number] Patient was due to get RhoGAM at the hospital. I will need to check and see if she did indeed get this on labor and delivery. 11/16/2024 High risk 4720 0007 O09.92 Cervical c erclage suture present 52832251 O34.33 69151181 MFM following. (pt had shortening cervix with hx of 24wk delivery). The patient was in triage yesterday and had an ultrasound which confirmed cervix and cerclage appeared the same compared to prior. 11/16/2024 Past pregn yisel history of premature delivery 130782487 Z87.51 24w2d. pt states labor and short cervix. ...pt will need MFM referral 06/22/2024 we got records from 2022 not 2024.... nursing just called [facility] to get 2024 records of her ER visit/ultr asound for this . we will check cervical length and refer to MFM today. 07/20/24 u/s from 06/03/24 gives ZOE 01/26/25 by CRL 6w1d. CL 3.2 cm. 07/20/24 Post-disch arge follow-up [id number] Z09 069197 Patient is here today because she was seen over the weekend in labor and delivery for vulvar irritation and the nursing was concerned for her visible external infection. . She complains of the same issue today but her exam is within normal limits. We sent a vaginitis swab. [id number] Herlinda Gibson MD [facility] ([facility]) [address] [place] [phone] 01/04/2025 11:19:03 01/04/2025 13:10:33 High risk 97251621 O09.92 Multigravida 505127781 Z 34.83 89565242 RhD negative 248022645 O 26.899 Z67.91 [id number] Patient was due to get RhoGAM at the hospital. I will need to check and see if she did indeed get this on labor and delivery. 11/16/2024 Cervical c erclage suture present 70809607 O34.33 [id number] MFM following. (pt had shortening cervix with hx of 24wk delivery). The patient was in triage yesterday and had an ultrasound which confirmed cervix and cerclage appeared the same compared to prior. 11/16/2024 due for removal in SGF on 01/10. 01/04/25 Past pregn yisel history of premature delivery 377606040 Z87.51 24w2d. pt states labor and short cervix. ...pt will need MFM referral 06/22/2024 we got records from 2022 not 2024.... nursing just called [facility] to get 2024 records of her ER visit/ultr asound for this . we will check cervical length and refer to MF today. 07/20/24 u/s from 06/03/24 gives ZOE 01/26/25 by CRL 6w1d. CL 3.2 cm. 07/20/24 Gestation period, 36 weeks 06109894 Z3A.36 4398466 [id number] Herlinda Gibson MD [facility] ([facility]) [address] [place] [phone] 01/09/2025 12:00:49 01/12/2025 12:57:05 Gestation period, 37 weeks 49941884 Z3A.37 8609722 Multigravida 525023892 Z 34.83 41602852 High risk 4720 0007 O09.92 RhD negative 156487086 O 26.899 Z67.91 [id number] Patient was due to get RhoGAM at the hospital. I will need to check and see if she did indeed get this on labor and delivery. 11/16/2024 Cervical c erclage suture present 66116586 O34.33 [id number] MFM following. (pt had shortening cervix with hx of 24wk delivery). The patient was in triage yesterday and had an ultrasound which confirmed cervix and cerclage appeared the same compared to prior. 11/16/2024 due for removal in SGF on 01/10. 01/04/25 Past pregn yisel history of premature delivery 321946310 Z87.51 24w2d. pt states labor and short cervix. ...pt will need MFM referral 06/22/2024 we got records from 2022 not 2024.... nursing just called [facility] to get 2024 records of her ER visit/ultr asound for this . we will check cervical length and refer to MF today. 07/20/24 u/s from 06/03/24 gives ZOE 01/26/25 by CRL 6w1d. CL 3.2 cm. 07/20/24 Blood pres sure above reference range 89505574 R03.0 714472 repeat BP was 135/82. pt goes to [facility] tomorrow and can be re-checked there. [id number] Herlinda Gibson MD [facility] ([facility]) [address] [place] [phone] 01/23/2025 16:54:15 01/25/2025 14:22:25 High risk 26857711 O09.92 RhD negative 342022352 O 26.899 Z67.91 [id number] Patient was due to get RhoGAM at the hospital. I will need to check and see if she did indeed get this on labor and delivery. 11/16/2024 Cervical c erclage suture present 35206238 O34.33 58599129 MFM following. (pt had shortening cervix with hx of 24wk delivery). The patient was in triage yesterday and had an ultrasound which confirmed cervix and cerclage appeared the same compared to prior. 11/16/2024 due for removal in SGF on 01/10. 01/04/25 Past pregn yisel history of premature delivery 621439467 Z87.51 24w2d. pt states labor and short cervix. ...pt will need MFM referral 06/22/2024 we got records from 2022 not 2024.... nursing just called [facility] to get 2024 records of her ER visit/ultr asound for this . we will check cervical length and refer to MFM today. 07/20/24 u/s from 06/03/24 gives ZOE 01/26/25 by CRL 6w1d. CL 3.2 cm. 07/20/24 Blood pres sure above reference range 81616684 R03.0 671013 pt sent to L&D for PIH labs and induction secondary to elevated BP and protein in the urine. 01/23/25 Gestation period, 39 weeks 58535454 Z3A.39 5271863 [id number] Herlinda Gibson MD [facility] ([facility]) [address] [place] [phone] 02/05/2025 15:41:24 02/09/2025 13:26:20 Initial prescription of oral contraception 596890528 Z30.035 1535034 Patient has a history of high risk pregnancie s with cervical cerclage. She was advised to space out her pregnancie s by at least 12 to 15 months to help prevent any complicati ons. Patient is not interested in any other control but the pill 02/05/2025 Hypertensive disorder 38 503954 O16.5 603268 Increase nifedipine from 30 mg to 60 mg daily. Follow-up in 2 weeks for blood pressure check. 02/05/2025 [id number] Herlinda Gibson MD [facility] ([facility]) [address] [place] [phone] 02/20/2025 16:23:12 02/23/2025 15:35:41 Essential hypertension 60060403 I10 66073 Increase nifedipine from 30 mg to 60 mg daily. Follow-up in 2 weeks for blood pressure check. 02/05/2025 Headache 69229111 R51.9 1991419 - Start propranolo l for migraine prevention and discontinu e current medication to alleviate headaches. - Evaluate effectiven ess and side effects of new treatment. - Schedule a follow-up appointmen t in two weeks. Health Concerns Section Related Observation LastModified by Organization Detai ls LastModified Time None Recorded Concern Status LastModified by Organization Details LastModified Time None Recorded Advance Directives Directive None Recorded Payers Insurance Date Sequence Insurance Name Policy Number Policy Vital Covered Member ID Vital Member ID Guarantor Name 03/06/2025 [facility] (MEDICAID HMO) Dilshad Juarez [id number] Dilshad Juarez 03/06/2025 1 [facility] (MEDICAID HMO) Dilshad Juarez [id number] Dilshad Juarez Notes Date Note Type Note Provider Name and Address Organization Details Recorded Time text/html jr ob routineReported by PatientHPIFor associated symptoms, patient reportsabdominal pain,cramping,edema, andheadachebut reportsno contractions,normal movement,no bleeding, andno dizziness.ROS as noted in the HPI Herlinda Gibson MD [address] [place] [address], [phone], [facility] 01/04/2025 11:46:55 5 text/html jr ob routineReported by PatientHPIFor associated symptoms, patient reportsabdominal pain,cramping,contractio ns,nausea,emesis,edema,h eadache, anddizzinessbut reportsnormal movementandno bleeding.ROS as noted in the HPI Herlinda Gibson MD [address] [place] [address], [phone], [facility] 01/11/2025 13:28:04 5 text/html jr ob routineReported by PatientHPIFor associated symptoms, patient reportscramping,edema,vi sual changes, anddizzinessbut reportsno abdominal pain,no contractions,normal movement,no dysuria,no frequency,no nausea,no emesis,no constipation, andno headache. Herlinda Gibson MD [address] [place] [address], [phone], [facility] 01/23/2025 17:34:19 5 text/html VisitReported by PatientHPIFor associated symptoms, patient reportspelvic pain (a pinching feeling when she moves too quickly)but reportsno abnormal bleedingandno vaginal discharge(bleeding has basically stopped). For onset/timing, patient reportsdate of delivery: (01/24/2025). For quality, patient reportsnsvd. For contraception plan, patient reportsoral contraceptive pill. light sensitivity, headaches around her eyes and forehead that lasts for hours. I am interested in control, the sooner the better. I have always done the pill as it is easier for me and I remember it when I take my other medicines. I am pumping but not breast feeding, I am only pumping until I dry up. I have done the ring as it comes out sometimes, I would like to do the pill. Herlinda Gibson MD [address] [place] [address], [phone], [facility] 02/07/2025 18:17:37 5 text/html Hypertension IM/FMReported by PatientHPIFor associated symptoms, patient reportsheadachesbut reportsno shortness of breathandno fatigue. For quality, patient reportshere for check-up. For alleviating factors, patient reportsmedication. For self care, patient reportsnon-smoker.ROS as noted in the HPI The patient is a 25-year-old female presenting with migraine headaches, which became more frequent and severe after increasing her hypertension medication dosage to 60 mg. The headaches predominantly affect her forehead and sometimes extend laterally, with associated photophobia and intensified ocular pain. They persist for up to two days without relief even with attempted treatments like vixo-ryr-xrowtia analgesics and environmental modifications. Previously she had transient, less severe headaches, but they have now increased in frequency. She experiences difficulty sleeping due to headache-related pain, particularly when exposed to even minimal light, and the noise aggravates the symptoms. There is consideration of the headaches being a side effect of nifedipine, warranting a potential change in medication regimen. The patient denies any known drug allergies. Herlinda Gibson MD [address] [place] [address], [phone], [facility], [place] 02/20/2025 17:03:42 OBGyn Episode Ob Episode Information Episode Created Date Number of Fetuses Patient Bloodtype Patient rh Status Prepregnancy Weight lbs Domestic Partner Domestic Partner Phone Father Name Dry Cure Worker Status 06/20/19 25 1 CLOSED Fetus Data First Name Last Name Admitted to NICU Weight (g) Sex Living Outcome Pediatric Complications Fetus ID Race Codes Race Delivery Type 1048.70 4704 F Prematur e 7064 VAGINAL Zoe Calculation Initial Zoe Date Initial Exam Date Initial Exam Provider Initial Ultrasound Date Last Menstrual Period Date Ultra Sound Weeks Gestation 0 Eighteen To Twenty Week Zoe Update Ultra Sound Date Fundal Height At Umbil Quickening Date Ultra Sound Latest Weeks Gestation Final Zoe Confirmed By Final Zoe Confirmed Date Final Zoe Date Ultra Sound Latest Days Gestation 0 0 Menstrual History Last Menstrual Date Menses Monthly On Bcp Conception Prior Menses Frequency Hcg Plus Date Menarche Onset Age Delivery Information Delivery Date Delivery Type Labor Anesthesia Weeks Gestation Incision Type Labor Labor Length Hrs Delivered By Post Complications Tubal Sterilization Discharge Date Comments 3 24.2 true Discharge Information Feeding Method Contraceptive Method Maternal HG B and HCT Levels Ob Episode Information Episode Created Date Number of Fetuses Patient Bloodtype Patient rh Status Prepregnancy Weight lbs Domestic Partner Domestic Partner Phone Father Name Dry Cure Worker Status 06/20/19 25 1 A Negative Jose chang CLOSED Fetus Data First Name Last Name Admitted to NICU Weight (g) Sex Living Outcome Pediatric Complications Fetus ID Race Codes Race Delivery Type Jennifer false 2948.34 8 F 7063 VAGINAL Problems Problem Notes delivery 24w2d, deli flaca naturally NSVDpremature labor at 23w, short cervix....ZOE by LMP , ZEO changed based off ER U/S new ZOE 01/26 Problem Name Start Date End Date Resolution Snomed Code Not e High risk 05207277 Past history of premature delivery 847575741 24w2d. pt states labor and short cervix. ...pt will need MFM referral 06/22/2024 Cerclage [id number] MFM on 08/24 Cervical cerclage suture present 10/02/2024 32953761 MFM following . (pt had shortening cervix with hx of 24wk delivery) Cervical incompetence 11/05/2024 [id number] [address]. Discomfort is probably related to this. Zoe Calculation Initial Zoe Date Initial Exam Date Initial Exam Provider Initial Ultrasound Date Last Menstrual Period Date Ultra Sound Weeks Gestation 01/18/2025 06/20/2024 06/03/2024 04/13/2024 6 Eighteen To Twenty Week Zoe Update Ultra Sound Date Fundal Height At Umbil Quickening Date Ultra Sound Latest Weeks Gestation Final Zoe Confirmed By Final Zoe Confirmed Date Final Zoe Date Ultra Sound Latest Days Gestation 0 [email or web address] 08/16/2024 01/27/20 25 0 Pre-aubrie Flowsheet Flowsheet Date 06/20/2024 Matt Score Blood Edema Fundus Height Fundus Units Glucose Ketones Leukocytes Nitrite Labor Signs Protein Cervic Dilation Cervic Effacement Cervic Station Type Weight in lbs Pre/Post Dialysis Refused Weight 184.627419062551 BP Diastolic BP Location Tested BP Systolic BP Type 60 115 Fetus Heart Rate Present Fetus Movement Comments Flowsheet Date 07/20/2024 Matt Score Blood Edema Fundus Height Fundus Units Glucose Ketones Leukocytes Nitrite Labor Signs Protein Cervic Dilation Cervic Effacement Cervic Station Type Weight in lbs Pre/Post Dialysis Refused Weight 178.168405456554 BP Diastolic BP Location Tested BP Systolic BP Type 65 115 Fetus Heart Rate Present A 155 Fetus Movement Comments Flowsheet Date 08/16/2024 Matt Score Blood Edema Fundus Height Fundus Units Glucose Ketones Leukocytes Nitrite Labor Signs Protein Cervic Dilation Cervic Effacement Cervic Station Type Weight in lbs Pre/Post Dialysis Refused BP Diastolic BP Location Tested BP Systolic BP Type Fetus Heart Rate Present Fetus Movement Comments Flowsheet Date 08/16/2024 Matt Score Blood Edema Fundus Height Fundus Units Glucose Ketones Leukocytes Nitrite Labor Signs Protein Cervic Dilation Cervic Effacement Cervic Station none trace trace Type Weight in lbs Pre/Post Dialysis Refused Weight 176.903933065477 BP Diastolic BP Location Tested BP Systolic BP Type 70 100 Fetus Heart Rate Present A 165 Fetus Movement A No Comments Flowsheet Date 10/02/2024 Matt Score Blood Edema Fundus Height Fundus Units Glucose Ketones Leukocytes Nitrite Labor Signs Protein Cervic Dilation Cervic Effacement Cervic Station 25 cm Type Weight in lbs Pre/Post Dialysis Refused Weight 188.132025863887 BP Diastolic BP Location Tested BP Systolic BP Type 63 130 Fetus Heart Rate Present A 150 Fetus Movement A Yes Comments CERCLAGE. Baby girl, Jennifer Gallegos. Wants BC control after ba y is born. Cant pee today. Flowsheet Date 11/03/2024 Matt Score Blood Edema Fundus Height Fundus Units Glucose Ketones Leukocytes Nitrite Labor Signs Protein Cervic Dilation Cervic Effacement Cervic Station 28 cm none 2+ Negative trace Type Weight in lbs Pre/Post Dialysis Refused With clothes 193.255452390372 BP Diastolic BP Location Tested BP Systolic BP Type 70 L arm 130 sitting Fetus Heart Rate Present A 160 Fetus Movement A Yes Comments 1 hr gtt today, placed rhoga m injection referral, states she is having pulling with her cerclage. Flowsheet Date 11/16/2024 Matt Score Blood Edema Fundus Height Fundus Units Glucose Ketones Leukocytes Nitrite Labor Signs Protein Cervic Dilation Cervic Effacement Cervic Station none 2+ 1+ Type Weight in lbs Pre/Post Dialysis Refused Weight 196.976140233622 BP Diastolic BP Location Tested BP Systolic BP Type 80 115 Fetus Heart Rate Present A 150 Present Fetus Movement Comments pt was in L&D yesterday dx w ith UTI, started on rocephin Flowsheet Date 12/04/2024 Matt Score Blood Edema Fundus Height Fundus Units Glucose Ketones Leukocytes Nitrite Labor Signs Protein Cervic Dilation Cervic Effacement Cervic Station 35 cm none 1+ Negative neg Type Weight in lbs Pre/Post Dialysis Refused With clothes 198.241125239542 BP Diastolic BP Location Tested BP Systolic BP Type 74 L arm 120 sitting Fetus Heart Rate Present A 150 Fetus Movement A Yes Comments plan is to take the cercalge out on 35-36 weeks per pt. she sees her high risk doctor next week Flowsheet Date 12/21/2024 Matt Score Blood Edema Fundus Height Fundus Units Glucose Ketones Leukocytes Nitrite Labor Signs Protein Cervic Dilation Cervic Effacement Cervic Station 36 cm none 1+ Negative trace Type Weight in lbs Pre/Post Dialysis Refused With clothes 204.753406452122 BP Diastolic BP Location Tested BP Systolic BP Type 84 L arm 134 sitting Fetus Heart Rate Present A 145 Fetus Movement A Yes Comments got rhogam 11/20. Getting cer clage taken out January 10, they are keeping her in [place] that day in case it breaks her water. Pt wants to deliver in [place] due to being high risk. GBS and TDAP donen today. Flowsheet Date 12/28/2024 Matt Score Blood Edema Fundus Height Fundus Units Glucose Ketones Leukocytes Nitrite Labor Signs Protein Cervic Dilation Cervic Effacement Cervic Station Type Weight in lbs Pre/Post Dialysis Refused Weight 206.630432517298 BP Diastolic BP Location Tested BP Systolic BP Type 70 100 Fetus Heart Rate Present Fetus Movement Comments Flowsheet Date 01/04/2025 Matt Score Blood Edema Fundus Height Fundus Units Glucose Ketones Leukocytes Nitrite Labor Signs Protein Cervic Dilation Cervic Effacement Cervic Station 1+ 37 cm none 3+ Negative trace Type Weight in lbs Pre/Post Dialysis Refused Weight 208.808643867928 BP Diastolic BP Location Tested BP Systolic BP Type 80 130 Fetus Heart Rate Present A 144 Fetus Movement A Yes Comments Pt. has an appt 01/10/25 to g et the cerclage taken out. If her water breaks during she will have her in [place]. If not she will have baby here. Flowsheet Date 01/09/2025 Matt Score Blood Edema Fundus Height Fundus Units Glucose Ketones Leukocytes Nitrite Labor Signs Protein Cervic Dilation Cervic Effacement Cervic Station 1+ 38 cm Type Weight in lbs Pre/Post Dialysis Refused Weight 215.026390026024 BP Diastolic BP Location Tested BP Systolic BP Type 80 148 Fetus Heart Rate Present A 135 Fetus Movement A Yes Comments In pain. Walking causes pain . Feet are swollen. Cant pee today. Flowsheet Date 01/23/2025 Matt Score Blood Edema Fundus Height Fundus Units Glucose Ketones Leukocytes Nitrite Labor Signs Protein Cervic Dilation Cervic Effacement Cervic Station 38 cm none trace Negative 4+ Type Weight in lbs Pre/Post Dialysis Refused With clothes 220.769782523355 BP Diastolic BP Location Tested BP Systolic BP Type 92 R arm 160 sitting 100 L arm 148 sitting Fetus Heart Rate Present A 140 Fetus Movement A Yes Comments Having swelling, headache, d izziness, seeing spots, having vag pressure. Flowsheet Date 02/05/2025 Matt Score Blood Edema Fundus Height Fundus Units Glucose Ketones Leukocytes Nitrite Labor Signs Protein Cervic Dilation Cervic Effacement Cervic Station Type Weight in lbs Pre/Post Dialysis Refused With clothes 185.251732801455 BP Diastolic BP Location Tested BP Systolic BP Type 86 R arm 150 sitting 74 R arm 160 sitting Fetus Heart Rate Present Fetus Movement Comments Menstrual History Last Menstrual Date Menses Monthly On Bcp Conception Prior Menses Frequency Hcg Plus Date Menarche Onset Age 1104/13/2024 false Genetic Screening And Infection History Question Response Note Patient's Age Will Be 35 Yea rs Or Older At Estimated Date of Delivery false Thalassemia (Tanzanian, Serbian, Mediterranean, Or Background): MCV < 80 false Neural Tube Defect (Meningom yelocele, Spina Bifida, Or Anencephaly) false Congenital Heart Defect true Grandfat her and brothers have flutters and 1 brother has a hole in his heart. Down Syndrome false Nilson-Sachs (eg, Alevism, Cajun , Ethiopian-Crane) false Frances Disease false Sickle Cell Disease Or Trait () false Hemophilia Or Other Blood Disorders false Muscular Dystrophy false Cystic Fibrosis false Alvaro's Chorea false Intellectual Disability/Autism true P t. has dyselxia If Yes, Was Person Tested For Fragile X? false Other Inherited Genetic Or C hromosomal Disorder false Maternal Metabolic Disorder (eg, Type 1 Diabetes, PKU) false Patient Or Baby's Father Had A Child With Defects Not Listed Above true Daughter was a preemie and has a feeding tube. she is 1. Recurrent Loss, Or A Stillbirth false Medications (including Suppl ements, Vitamins, Herbs, OTC Drugs), Illicit/Recreational Drugs, Alcohol false If Yes, Agent(s) And Strength/Dosage false Any Other Genetic History false Live With Someone With TB Or Exposed To TB false Patient Or Partner Has Histo ry Of Genital Herpes false Rash Or Viral Illness Since Last Menstrual Period false History Of STD, Gonorrhea, C hlamydia, HPV, Syphilis false Other Infection History false History of HIV false History of Hepatitis false Prior GBS-infected child false Hemoglobinopathy Or Carrier false Other Structural Defect false Recent Travel History Outside of Country false Mental Retardation/Autism false Delivery Information Delivery Date Delivery Type Labor Anesthesia Weeks Gestation Incision Type Labor Labor Length Hrs Delivered By Post Complications Tubal Sterilization Discharge Date Comments 5 Induce d Regional-Ep idural 39.5 Herlinda Gibson MD Discharge Information Feeding Method Contraceptive Method Maternal HG B and HCT Levels
--- OUTSIDE RECORDS SUMMARY | 2025-03-25 21:48 | XMS_ITS | Clinical Summary ---
Author Organization [facility] Address [facility] [place] [address] Care Team Providers Care Roving Winder Name Role Phone Unavailable Primary Care Provider Unavailabl e Allergies No known active allergies Medications No known medications Active Problems Comments Yes No known active problems Social History Tobacco Use Types Packs/Day Years Used Date Smoking Tobacco: Never Smokeless Tobacco: Never Alcohol Use Standard Drinks/Week Comments Not Currently 0 (1 standard drink = 0.6 oz pur e alcohol) Feeling Safe Answer Date Recorded Are you in a relationship wi th someone who hurts you emotionally and/or physically? No 05/26/2024 Comments Yes Sex and Gender Information Value Date Recorded Sex Assigned at Not on file Legal Sex Female 10:04 AM CDT Gender Identity Not on file Sexual Orientation Not on file Last Filed Vital Signs Vital Sign Reading Time Taken Comments Blood Pressure 107/59 05/26/2024 2:15 AM [employer] Pulse 104 05/26/2024 2:15 AM [employer] Temperature 36.8 C (98.2 F) 05/26/2024 1:33 AM [employer] Respiratory Rate 16 05/26/2024 1:33 AM [employer] Oxygen Saturation 100% 05/26/2024 2:15 AM [employer] Inhaled Oxygen Concentration - - Weight 82.5 kg (181 lb 12.8 oz) 05/26/2024 1:33 AM [employer] Height 154.9 cm (5' 1 ) 05/26/2024 1:33 AM [employer] Body Mass Index 34.35 05/26/2024 1:33 AM [employer] BU[employer]DER Plan of Treatment Health Maintenance Due Date Last Done Comments CHLAMYDIA SCREENING (ANNUAL) 11-24 YEARS 2013 CERVICAL CANCER SCREENING 2023 HPV/Cotest (21-29) 2023 PAP SMEAR 2023 INFLUENZA VACCINE (#1) 2024 02/13/2020 DTAP/TDAP/TD VACCINES (7 - T d or Tdap) 12/22/2026 12/22/2016, 03/24/2006, 05/14/2003, Additional history exists RSV VACCINE (60+ or ) (1 - 1-dose 75+ series) 2077 HEPATITIS B VACCINES Completed 2002, 2002, 2002 HPV VACCINES Completed 12/12/2019, 02/21, 12/22/2016 Insurance [facility] [facility] MEDICAID
[2025-03-25 22:12] VITALS: BP 118/80; PULSE 98; RESP 16; TEMP 36.9; O2SAT 95; BMI 35.9
[2025-03-25 22:19] VITALS: BP 118/80; PULSE 98; RESP 16; TEMP 36.9; O2SAT 95
[2025-03-25 22:52] VITALS: BP 143/87; PULSE 68; O2SAT 99
[2025-03-25 22:58] LABS: Glucose Urine UA Negative (Normal); Nitrate Urine Negative (Negative); Specific Gravity, Urine 1.012 (1.005-1.030)
[2025-03-25 23:03] LABS: Add Urine Microscopic? YES
--- NOTE | 2025-03-25 23:04 | W.ED.PREGNAN ---
Documented by User: WILLIAM Stewart 03/26/25 01:07 HPI - General: Chief complaint: Vaginal Bleeding Stated complaint: still bleeding post . pain worse shooting abd Time Seen by Provider: 03/25/25 22:37 Source: patient Mode of arrival: ambulatory Limitations: no limitations History of Present Illness: Patient is a 25-year-old female who is currently 9 weeks from vaginal delivery who is presenting to the emergency department complaining of vaginal bleeding. States that she has been bleeding since she gave , sometimes it will clear for a day but mostly has been constant and today has blood through 8 pads. States that she has severe pain in the pelvic region during intercourse. She notes that with the vaginal delivery she did have a laceration and she also had preeclampsia prior to giving . Denies syncopal episodes, palpitations, or weakness. She states that she has been passing clots, and notes that urination worsens her pelvic pain. No history of coagulopathy or bleeding disorders. She does have a history of recurrent loss. Her vitals are stable at this time, she is nontoxic-appearing. MD Complaint: vaginal bleeding Onset (ago): week(s) Pain Consistency: constant Location: pelvis Vaginal bleeding: heavy and clots Patient : No OB History - Previous Pregnancies: preeclampsia and miscarriage Associated symptoms: Reports abdominal pain, dyspareunia and dysuria; Deny headache(s), nausea or vomiting Related Data : 6 Home Medications ?Medication ?Instructions ?Recorded ?Confirmed Macrobid 100 mg PO BID 12/27/24 01/23/25 cranberry 1 tab PO DAILY 12/27/24 01/23/25 cranberry cerf-G-nywvnhgf coag 450 1 tab PO DAILY 12/27/24 01/23/25 mg-30 mg-50 million cell tablet (Wjkcoiczw-Xkbercwpd-Qgqfnat C) Previous Rx's ?Medication ?Instructions ?Recorded vitamins with calcium 1 tab PO DAILY #30 tabs 05/31/24 no.72-iron 29 mg-folic acid 1 mg tablet ( Plus) sertraline 50 mg tablet (Zoloft) 50 mg PO DAILY #30 tabs 01/01/25 amoxicillin 875 mg tablet 875 mg PO BID uti #14 tabs 01/25/25 Allergies Allergy/AdvReac Type Severity Reaction Status Date / Time Bleach (Sodium Hypochlorite) Allergy Severe ALGY-Redness Verified 01/01/25 15:52 of Skin Review of Systems General: Reports: 10 or more systems reviewed and unremarkable except in HPI and below Const: Denies: fever(s), chills, change in appetite, change in weight or diaphoresis ENMT: Denies: throat pain or hoarseness Card: Denies: chest pain, palpitations or lightheadedness Resp: Denies: dyspnea, productive cough or wheezing GI: Reports: abdominal pain; Denies: nausea, vomiting, diarrhea, constipation, bloating, change in stool character or hematochezia : Reports: dysuria, vaginal bleeding, pelvic pain and dyspareunia; Denies: flank pain, difficulty voiding, urinary frequency, urinary urgency or vaginal odor Musc: Denies: neck pain or back pain Skin/Breast: Denies: rash or new lesions Neuro: Denies: headache(s) or dizziness PFSH ED PFSH: Medical History Psychiatric care Recurrent loss Obesity (BMI 30-39.9) Recurrent oral ulcers Asthma Scoliosis Surgical History No significant past surgical history Family History Other CAD (coronary artery disease) Cancer Chronic kidney disease (CKD) Diabetes Hypertension Denies family history of Anesthesia complication Stroke Social History Smoking and tobacco/nicotine status: former use of tobacco/nicotine Second hand smoke exposure: No Alcohol intake: unknown Substance/Drug Use: unknown Adopted: No Caregiver/support person: No Lives independently: No Household members: significant other and family Housing: House Marital status: Single Number of children: 1 service: No Current occupational status: unemployed Current occupational exposures/hazards: No Current gender identity: Female Female Reproductive History: : 6 Para: 1 Physical Exam Const: COMMON NORMALS: no acute distress, patient oriented x3, no limitations, alert and well nourished GENERAL APPEARANCE: cooperative and comfortable ORIENTATION/CONSCIOUSNESS: Yes awake Neck/C-Spine: COMMON NORMALS: full ROM, supple and no meningeal signs Resp: COMMON NORMALS: normal respiratory effort, No retractions, No use of accessory muscles and clear to auscultation bilaterally AUSCULTATION: clear to auscultation bilaterally, no crackles, no rales, no rhonchi and no wheezes Cardio: COMMON NORMALS: regular rate, regular rhythm, No gallops present (Cardio), No clicks present (Cardio), No murmurs present (Cardio) and No rub (Cardio) RATE: regular rate RHYTHM: regular rhythm GI: COMMON NORMALS: Normal to inspection, nondistended, normoactive bowel sounds present, Soft to palpation, No hepatosplenomegaly present and no masses AUSCULTATION: Yes normoactive bowel sounds PALPATION: Yes Soft to palpation, Yes Tenderness to palpation present (GI) (Lower abdominal tenderness), No Guarding due to palpation present (GI), No Rigid due to palpation and Yes No hepatosplenomegaly present RECTAL EXAM: deferred : COMMON NORMALS: Yes no CVA tenderness BLADDER/KIDNEY EXAM: Yes no CVA tenderness Back/Pelvis: COMMON NORMALS: no CVA tenderness Extremity: COMMON NORMALS: normal to inspection and full ROM Neuro: COMMON NORMALS: patient oriented x3, moves all extremities, no focal motor deficits and no sensory deficits noted SENSORIUM/ORIENTATION: Yes alert MENINGEAL SIGNS: Yes no meningeal signs Psych: COMMON NORMALS: mental status grossly normal, cooperative and speech normal SPEECH: Yes normal speech Skin: COMMON NORMALS: no rashes or lesions noted GENERAL SKIN EXAM: no rashes or lesions noted Course Vital Signs: Vital signs: Vital Signs Temperature 98.4 F 03/25/25 22:19 Pulse Rate 73 03/26/25 01:05 Respiratory Rate 16 03/25/25 22:19 Blood Pressure 134/81 03/26/25 01:05 Pulse Oximetry 100 03/26/25 01:05 Oxygen Delivery Me thod Room Air 03/26/25 00:09 MDM - OB/Uterine Contractions Medical Decision Making This patient presented for vaginal bleeding that she has been having 9 weeks . Not actively bleeding at this time. States she had a vaginal laceration during delivery and was preeclamptic prior to delivery but no other pertinent past medical history. She is hemodynamically stable, vital stable at this time. Did not endorse any weakness or feeling like she was going to pass out. All of her lab work was normal, which included CBC, CMP, coag studies, negative hCG, and negative urinalysis. Transvaginal ultrasound showing no specific findings that would explain her dyspareunia and vaginal bleeding. Though do suspect this is nonemergent she will be referred to COMPUTER APPLICATIONS INSTRUCTOR for further evaluation if she continues to have symptoms. She is stable for discharge home at this time. Lab Data 03/25/25 22:50 03/25/25 22:50 Radiology Impressions Transvaginal US 03/26/25 22:41 IMPRESSION: Mild fluid in the cervical canal, unknown clinical significance. Laboratory Results WBC 6.47 10^3/uL (3.29-11.43) 03/25/25 22:50 RBC 4.17 10^6/uL (3.85-5.65) 03/25/25 22:50 Hgb 11.40 g/dL (11.27-16.99) 03/25/25 22:50 Hct 35.9 % (36-47) L 03/25/25 22:50 MCV 86.1 fl (85-98) 03/25/25 22:50 MCH 27.3 pg (27-33) 03/25/25 22:50 MCHC 31.8 g/dL (30-55) 03/25/25 22:50 RDW 12.6 % (12.1-15.1) 03/25/25 22:50 Plt Count 309 10^3/cmm (157-399) 03/25/25 22:50 MPV 10.4 fL (7.4-10.4) 03/25/25 22:50 Neut % (Auto) 48.4 % 03/25/25 22:50 Lymph % (Auto) 39.7 % 03/25/25 22:50 Gordon % (Auto) 8.0 % 03/25/25 22:50 Eos % (Auto) 3.1 % 03/25/25 22:50 Baso % (Auto) 0.6 % 03/25/25 22:50 Neut # (Auto) 3.13 10^3/uL (1.8-7.7) 03/25/25 22:50 Lymph # (Auto) 2.6 10^3/uL (0.8-4.8) 03/25/25 22:50 Gordon # (Auto) 0.5 10^3/uL (0.2-0.9) 03/25/25 22:50 Eos # (Auto) 0.2 10^3/uL (0.0-0.8) 03/25/25 22:50 Baso # (Auto) 0.0 10^3/uL (0.0-0.1) 03/25/25 22:50 Nucleated RBC % (auto) 0 % 03/25/25 22:50 Nucleated RBCs # 0.0 /100WBC 03/25/25 22:50 PT 12.30 SECONDS (12.1-14.9) 03/25/25 22:50 INR 0.85 (0.8-1.2) 03/25/25 22:50 APTT 25.9 SECONDS (23.9-36.7) 03/25/25 22:50 Sodium 140 mmol/L (136-145) 03/25/25 22:50 Potassium 3.9 mmol/L (3.5-5.1) 03/25/25 22:50 Chloride 107 mmol/L (98-107) 03/25/25 22:50 Carbon Dioxide 22 mmol/L (22-29) 03/25/25 22:50 Anion Gap 14.9 (5-19) 03/25/25 22:50 BUN 7 mg/dL (6-20) 03/25/25 22:50 Creatinine 0.6 mg/dL (0.5-0.9) 03/25/25 22:50 GFR Calculation 123.9 mL/min (90-130) 03/25/25 22:50 Glucose 94 mg/dL (65-115) 03/25/25 22:50 Calculated Osmolality 288 mOsm/kg (285-295) 03/25/25 22:50 Calcium 9.1 mg/dL (8.5-10.5) 03/25/25 22:50 Total Bilirubin 0.7 mg/dL (0.15-1.2) 03/25/25 22:50 AST 15 U/L (0-32) 03/25/25 22:50 ALT 15 U/L (0-33) 03/25/25 22:50 Alkaline Phosphatase 68 U/L (35-105) 03/25/25 22:50 Total Protein 7.2 g/dL (6.6-8.7) 03/25/25 22:50 Albumin 4.1 g/dL (3.5-5.2) 03/25/25 22:50 Globulin 3.1 g/dL (1.3-4.6) 03/25/25 22:50 Ser , Semi-Qnt < 1.00 mIU/mL 03/25/25 22:50 Urine Color Yellow (Yellow) 03/25/25 22:54 Urine Appearance Clear (CLEAR) 03/25/25 22:54 Urine pH 6.5 (5-7) 03/25/25 22:54 Ur Specific [place] 1.012 (1.005-1.030) 03/25/25 22:54 Urine Protein Trace (Negative) A 03/25/25 22:54 Urine Glucose (UA) Negative (Normal) 03/25/25 22:54 Urine Ketones Negative (Negative) 03/25/25 22:54 Urine Blood 3+ (Negative) A 03/25/25 22:54 Urine Nitrate Negative (Negative) 03/25/25 22:54 Urine Bilirubin Negative (Negative) 03/25/25 22:54 Urine Urobilinogen 1.0 mg/dL (Negative) 03/25/25 22:54 Ur Leukocyte Esterase Negative (Negative) 03/25/25 22:54 Urine RBC 21-50 /hpf (0-2) H 03/25/25 22:54 Urine WBC 0-5 /hpf (0-5) 03/25/25 22:54 Ur Squamous Epith Cells 0-5 /hpf (0-5) 03/25/25 22:54 Amorphous Sediment Not Reportable 03/25/25 22:54 Urine Bacteria None seen /hpf (NONE) 03/25/25 22:54 Hyaline Casts 0-4 /lpf H 03/25/25 22:54 Blood Type A Positive 03/25/25 23:31 Rho(D) Type Rh positive 03/25/25 23:31 Antibody Screen Negative 03/25/25 23:31 All radiology interpretation(s) finalized by discharge Discharge Plan Discharge Patient Disposition: Home Clinical Impression: Vaginal bleeding Condition: Stable Prescriptions: No Action Plus 29 mg iron- 1 mg tablet 1 tab PO DAILY Qty: 30 5RF sertraline [Zoloft] 50 mg tablet 50 mg PO DAILY Qty: 30 2RF Macrobid 100 mg PO BID cranberry 1 tab PO DAILY Szdlcbrwv-Wbnvqjdzi-Xhjifqp C 450-30-50 dk-kf-sivwime Tablet 1 tab PO DAILY amoxicillin 875 mg tablet 875 mg PO BID Qty: 14 0RF Discharge Orders: Discharge ED (Routine); Ordered 03/26/25 Ordered By: Simone De Jesus Referrals: Muna Feng, NOAH [Primary Care Provider, Family Practice] Patient Instructions: Patient Portal & Wild Instructions Activity Restrictions/Additional Instructions: Bleeding Instructions You have been evaluated for vaginal bleeding, and no serious cause was found. Mild to moderate vaginal bleeding is common after childbirth and can last for several weeks. - What to expect: Most women experience vaginal bleeding (called lochia) for about 2?4 weeks after delivery, but it can last up to 6 weeks or longer. The amount, color, and pattern of bleeding can vary and may include red, brown, or pink discharge. Bleeding may stop and start again, or be intermittent. - When to seek help: Contact your healthcare provider or go to the emergency room if you have: - Heavy bleeding soaking through more than one pad per hour for two hours in a row - Large blood clots (bigger than a golf ball) - Dizziness, fainting, or rapid heartbeat - Fever, chills, or foul-smelling vaginal discharge - Severe abdominal pain - Self-care tips: - Rest as needed and avoid strenuous activity until bleeding lessens. - Use sanitary pads, not tampons, until bleeding stops to reduce infection risk. - Keep the perineal area clean and dry. - Monitor for signs of infection or increased bleeding. - Follow-up: Schedule a check-up within 3 weeks, or sooner if you have any concerns. Routine visits are important for monitoring recovery, mental health, and support. - Contact information: If you have questions or concerns, call your healthcare provider at the number provided on your discharge paperwork. If you feel unwell or notice any of the warning signs above, seek medical attention immediately. Print Language: [place] Coding Level of Care Code ED Lead Application Architect for Chg Fwd Documented by User: Haresh Butts DO Sampson 03/26/25 01:52 HPI - General: Chief complaint: Vaginal Bleeding Stated complaint: still bleeding post . pain worse shooting abd Time Seen by Provider: 03/25/25 22:37 Related Data Home Medications ?Medication ?Instructions ?Recorded ?Confirmed Macrobid 100 mg PO BID 12/27/24 01/23/25 cranberry 1 tab PO DAILY 12/27/24 01/23/25 cranberry zjlh-E-ahvhtgpy coag 450 1 tab PO DAILY 12/27/24 01/23/25 mg-30 mg-50 million cell tablet (Vtjkhlqjx-Xwhpvmvcp-Sndbdiy C) Previous Rx's ?Medication ?Instructions ?Recorded vitamins with calcium 1 tab PO DAILY #30 tabs 05/31/24 no.72-iron 29 mg-folic acid 1 mg tablet ( Plus) sertraline 50 mg tablet (Zoloft) 50 mg PO DAILY #30 tabs 01/01/25 amoxicillin 875 mg tablet 875 mg PO BID uti #14 tabs 01/25/25 Allergies Allergy/AdvReac Type Severity Reaction Status Date / Time Bleach (Sodium Hypochlorite) Allergy Severe ALGY-Redness Verified 01/01/25 15:52 of Skin [facility]: Medical History Psychiatric care Recurrent loss Obesity (BMI 30-39.9) Recurrent oral ulcers Asthma Scoliosis Surgical History No significant past surgical history Family History Other CAD (coronary artery disease) Cancer Chronic kidney disease (CKD) Diabetes Hypertension Denies family history of Anesthesia complication Stroke Social History Smoking and tobacco/nicotine status: former use of tobacco/nicotine Second hand smoke exposure: No Alcohol intake: unknown Substance/Drug Use: unknown Adopted: No Caregiver/support person: No Lives independently: No Household members: significant other and family Housing: House Marital status: Single Number of children: 1 service: No Current occupational status: unemployed Current occupational exposures/hazards: No Current gender identity: Female Course Vital Signs: Vital signs: Vital Signs Temperature 98.4 F 03/25/25 22:19 Pulse Rate 73 03/26/25 01:05 Respiratory Rate 16 03/25/25 22:19 Blood Pressure 134/81 03/26/25 01:05 Pulse Oximetry 100 03/26/25 01:05 Oxygen Delivery Me thod Room Air 03/26/25 00:09 MDM - OB/Uterine Contractions Medical Decision Making This patient presented for vaginal bleeding that she has been having 9 weeks . Not actively bleeding at this time. States she had a vaginal laceration during delivery and was preeclamptic prior to delivery but no other pertinent past medical history. She is hemodynamically stable, vital stable at this time. Did not endorse any weakness or feeling like she was going to pass out. All of her lab work was normal, which included CBC, CMP, coag studies, negative hCG, and negative urinalysis. Transvaginal ultrasound showing no specific findings that would explain her dyspareunia and vaginal bleeding. Though do suspect this is nonemergent she will be referred to COMPUT[facility] APPLICATIONS INSTRUCTOR for further evaluation if she continues to have symptoms. She is stable for discharge home at this time. This patient was originally seen by Mr. Neal PA-C. I agree with his history, evaluation, and management. Lab Data 03/25/25 22:50 03/25/25 22:50 Radiology Impressions Transvaginal US 03/26/25 22:41 IMPRESSION: Mild fluid in the cervical canal, unknown clinical significance. Laboratory Results WBC 6.47 10^3/uL (3.29-11.43) 03/25/25 22:50 RBC 4.17 10^6/uL (3.85-5.65) 03/25/25 22:50 Hgb 11.40 g/dL (11.27-16.99) 03/25/25 22:50 Hct 35.9 % (36-47) L 03/25/25 22:50 MCV 86.1 fl (85-98) 03/25/25 22:50 MCH 27.3 pg (27-33) 03/25/25 22:50 MCHC 31.8 g/dL (30-55) 03/25/25 22:50 RDW 12.6 % (12.1-15.1) 03/25/25 22:50 Plt Count 309 10^3/cmm (157-399) 03/25/25 22:50 MPV 10.4 fL (7.4-10.4) 03/25/25 22:50 Neut % (Auto) 48.4 % 03/25/25 22:50 Lymph % (Auto) 39.7 % 03/25/25 22:50 Gordon % (Auto) 8.0 % 03/25/25 22:50 Eos % (Auto) 3.1 % 03/25/25 22:50 Baso % (Auto) 0.6 % 03/25/25 22:50 Neut # (Auto) 3.13 10^3/uL (1.8-7.7) 03/25/25 22:50 Lymph # (Auto) 2.6 10^3/uL (0.8-4.8) 03/25/25 22:50 Gordon # (Auto) 0.5 10^3/uL (0.2-0.9) 03/25/25 22:50 Eos # (Auto) 0.2 10^3/uL (0.0-0.8) 03/25/25 22:50 Baso # (Auto) 0.0 10^3/uL (0.0-0.1) 03/25/25 22:50 Nucleated RBC % (auto) 0 % 03/25/25 22:50 Nucleated RBCs # 0.0 /100WBC 03/25/25 22:50 PT 12.30 SECONDS (12.1-14.9) 03/25/25 22:50 INR 0.85 (0.8-1.2) 03/25/25 22:50 APTT 25.9 SECONDS (23.9-36.7) 03/25/25 22:50 Sodium 140 mmol/L (136-145) 03/25/25 22:50 Potassium 3.9 mmol/L (3.5-5.1) 03/25/25 22:50 Chloride 107 mmol/L (98-107) 03/25/25 22:50 Carbon Dioxide 22 mmol/L (22-29) 03/25/25 22:50 Anion Gap 14.9 (5-19) 03/25/25 22:50 BUN 7 mg/dL (6-20) 03/25/25 22:50 Creatinine 0.6 mg/dL (0.5-0.9) 03/25/25 22:50 GFR Calculation 123.9 mL/min (90-130) 03/25/25 22:50 Glucose 94 mg/dL (65-115) 03/25/25 22:50 Calculated Osmolality 288 mOsm/kg (285-295) 03/25/25 22:50 Calcium 9.1 mg/dL (8.5-10.5) 03/25/25 22:50 Total Bilirubin 0.7 mg/dL (0.15-1.2) 03/25/25 22:50 AST 15 U/L (0-32) 03/25/25 22:50 ALT 15 U/L (0-33) 03/25/25 22:50 Alkaline Phosphatase 68 U/L (35-105) 03/25/25 22:50 Total Protein 7.2 g/dL (6.6-8.7) 03/25/25 22:50 Albumin 4.1 g/dL (3.5-5.2) 03/25/25 22:50 Globulin 3.1 g/dL (1.3-4.6) 03/25/25 22:50 Ser , Semi-Qnt < 1.00 mIU/mL 03/25/25 22:50 Urine Color Yellow (Yellow) 03/25/25 22:54 Urine Appearance Clear (CLEAR) 03/25/25 22:54 Urine pH 6.5 (5-7) 03/25/25 22:54 Ur Specific [place] 1.012 (1.005-1.030) 03/25/25:54 Urine Protein Trace (Negative) A 03/25/25:54 Urine Glucose (UA) Negative (Normal) 03/25/25:54 Urine Ketones Negative (Negative) 03/25/25: Urine Blood 3+ (Negative) A 03/25/25:54 Urine Nitrate Negative (Negative) 03/25/25 22:54 Urine Bilirubin Negative (Negative) 03/25/25: Urine Urobilinogen 1.0 mg/dL (Negative) 03/25/25:54 Ur Leukocyte Esterase Negative (Negative) 03/25/25:54 Urine RBC 21-50 /hpf (0-2) H 03/25/25 22:54 Urine WBC 0-5 /hpf (0-5) 03/25/25 22:54 Ur Squamous Epith Cells 0-5 /hpf (0-5) 03/25/25 22:54 Amorphous Sediment Not Reportable 03/25/25 22:54 Urine Bacteria None seen /hpf (NONE) 03/25/25 22:54 Hyaline Casts 0-4 /lpf H 03/25/25 22:54 Blood Type A Positive 03/25/25 23:31 Rho(D) Type Rh positive 03/25/25 23:31 Antibody Screen Negative 03/25/25 23:31 Discharge Plan Discharge Patient Disposition: Home Clinical Impression: Vaginal bleeding Condition: Stable Prescriptions: No Action Plus 29 mg iron- 1 mg tablet 1 tab PO DAILY Qty: 30 5RF sertraline [Zoloft] 50 mg tablet 50 mg PO DAILY Qty: 30 2RF Macrobid 100 mg PO BID cranberry 1 tab PO DAILY Xnuinfzzh-Tjzxwlzvu-Nztmgwc C 450-30-50 ay-de-mbwimwm Tablet 1 tab PO DAILY amoxicillin 875 mg tablet 875 mg PO BID Qty: 14 0RF Discharge Orders: Discharge ED (Routine); Ordered 03/26/25 Ordered By: Simone De Jesus Referrals: Muna Feng, CHIMNEY CONSTRUCTION SUPERVISORFatoumataC [Primary Care Provider, [facility]] Patient Instructions: Patient Portal & Wild Instructions Activity Restrictions/Additional Instructions: Bleeding Instructions You have been evaluated for vaginal bleeding, and no serious cause was found. Mild to moderate vaginal bleeding is common after childbirth and can last for several weeks. - What to expect: Most women experience vaginal bleeding (called lochia) for about 2?4 weeks after delivery, but it can last up to 6 weeks or longer. The amount, color, and pattern of bleeding can vary and may include red, brown, or pink discharge. Bleeding may stop and start again, or be intermittent. - When to seek help: Contact your healthcare provider or go to the emergency room if you have: - Heavy bleeding soaking through more than one pad per hour for two hours in a row - Large blood clots (bigger than a golf ball) - Dizziness, fainting, or rapid heartbeat - Fever, chills, or foul-smelling vaginal discharge - Severe abdominal pain - Self-care tips: - Rest as needed and avoid strenuous activity until bleeding lessens. - Use sanitary pads, not tampons, until bleeding stops to reduce infection risk. - Keep the perineal area clean and dry. - Monitor for signs of infection or increased bleeding. - Follow-up: Schedule a check-up within 3 weeks, or sooner if you have any concerns. Routine visits are important for monitoring recovery, mental health, and support. - Contact information: If you have questions or concerns, call your healthcare provider at the number provided on your discharge paperwork. If you feel unwell or notice any of the warning signs above, seek medical attention immediately. Print Language: [place] Coding Level of Care Code ED Lead Application Architect for Myra Cerrato
[2025-03-25 23:09] LABS: Hematocrit 35.9 % (36-47); Hemoglobin 11.40 g/dL (11.27-16.99); Mean Corpuscular HGB Conc 31.8 g/dL (30-55); Mean Corpuscular Hemoglobin 27.3 pg (27-33); Mean Corpuscular Volume 86.1 fl (85-98); Nucleated Red Blood Cells % 0 %; Platelet Count 309 10^3/cmm (157-399); Red Blood Count 4.17 10^6/uL (3.85-5.65); White Blood Count 6.47 10^3/uL (3.29-11.43)
[2025-03-25 23:16] LABS: INR 0.85 (0.8-1.2); Prothrombin Time 12.30 SECONDS (12.1-14.9)
[2025-03-25 23:17] LABS: Partial Thromboplastin Time 25.9 SECONDS (23.9-36.7)
[2025-03-25 23:58] LABS: Alanine Aminotransferase 15 U/L (0-33); Albumin Level 4.1 g/dL (3.5-5.2); Alkaline Phosphatase 68 U/L (35-105); Anion Gap 14.9 (5-19); Aspartate Amino Transferase 15 U/L (0-32); Blood Urea Nitrogen 7 mg/dL (6-20); Calcium 9.1 mg/dL (8.5-10.5); Carbon Dioxide 22 mmol/L (22-29); Chloride 107 mmol/L (98-107); Creatinine Clr Calc Pharmacy 145.3839; Globulin 3.1 g/dL (1.3-4.6); Glucose 94 mg/dL (65-115); Osmolality Calculated 288 mOsm/kg (285-295); Potassium 3.9 mmol/L (3.5-5.1); Sodium 140 mmol/L (136-145); Total Protein 7.2 g/dL (6.6-8.7)
[2025-03-26 00:09] VITALS: BP 139/80; PULSE 75; O2SAT 99
[2025-03-26 01:05] VITALS: BP 134/81; PULSE 73; O2SAT 100
--- NOTE | 2025-03-26 17:26 | DCPLANNER ---
messaged wom[facility] for er f/u
--- NOTE | 2025-03-26 22:41 | USR_ITS ---
PROCEDURE INFORMATION: Exam: US Pelvis, Transvaginal, Non-Obstetric Exam date and time: 03/26/2025 12:27 AM Age: 25 years old Clinical indication: Pelvic pain; Prior surgery; Surgery date: 6+ months; Surgery type: Unsure of dates but patient has HX of cerclage; Additional info: Vaginal bleeding, pelvic pain, 9 weeks TECHNIQUE: Imaging protocol: Real-time transvaginal pelvic (non-obstetric) ultrasound with image documentation. Transvaginal imaging was used for better evaluation of the endometrium, adnexa, and/or cervix. COMPARISON: US OB transvaginal [id number] 11/15/2024 10:10 AM FINDINGS: Uterus: Uterus is normal. Endometrial stripe is normal. Mild fluid in the cervical canal, unknown clinical significance. Right ovary/adnexa: Normal. No mass. Normal ovarian blood flow on color Doppler. Left ovary/adnexa: Left ovary not identified. Intraperitoneal space: Trace fluid in the cul-de-sac. US/US transvaginal [id number] IMPRESSION: Mild fluid in the cervical canal, unknown clinical significance.
== END 2025-03-26 01:20 | disposition home or self-care (01) ==
PROVIDERS: Emergency Provider Physician Assistant; PCP Nurse Practitioner
DX: N93.9 Abnormal uterine and vaginal bleeding, unspecified (principal); Z87.891 Personal history of nicotine dependence
CPT/HCPCS: 36415; 76830; 80053; 81001; 84702; 85025; 85610; 85730; 86850; 86900; 87086; 99284; 99291; 99292